=== PATIENT | female | born 1965 | race Caucasian/White ===

== ENCOUNTER → 2019-08-14 | Outpatient (CLI) | payer MEDICARE, SELFPAY ==
[2019-08-14 09:32] VITALS: BMI 16.1
--- NOTE | 2019-08-14 09:49 | RAD_ITS ---
HISTORY:PPainRAD-EXT/JT PPainRAD-EXT/JT COMPARISON: None FINDINGS: # of images incl. paperwork: 3 XR Fingers Min 2 Views: Left BONE AND JOINTS: No acute fracture or subluxation. SOFT TISSUES: Unremarkable. No radiopaque foreign body. RAD/Finger(s) Min 2 Views IMPRESSION: No acute pathology If symptoms persist repeat study in 7-10 days or sooner if clinically indicated at 1931 Reported and signed by: Chelsy Rodney DO Electronically Signed: Chelsy Rodney DO at 19:30 EDT Tel , Service support ,
== END | disposition home or self-care (01) ==
LOC: HPRAD 09:49
PROVIDERS: Family Provider Preventive Medicine Occupational Medicine; PCP Preventive Medicine Occupational Medicine; Referring Provider Physician Assistant; Visit Provider Physician Assistant
DX: M79.645 Pain in left finger(s) (principal); S06.5X9D Traumatic subdural hemorrhage with loss of consciousness of unspecified duration, subsequent encounter; R26.81 Unsteadiness on feet
CPT/HCPCS: 73140; 97530; 97760

== ENCOUNTER → 2019-08-15 | Outpatient (CLI) | payer MEDICARE, SELFPAY ==
[2019-08-14 09:32] VITALS: BMI 16.1
--- NOTE | 2019-08-15 15:31 | CT_ITS ---
STUDY: CT BRAIN WITHOUT CONTRAST REASON FOR EXAM: Female, 54 years old. Follow-up RADIATION DOSAGE (If Supplied By Facility): DLP = ( 812.98 ) mGycm TECHNIQUE: Transaxial CT imaging of the brain was performed without administration of intravenous contrast material. Individualized dose optimization techniques were used for this CT. COMPARISON: CT head November 15, 2010 FINDINGS: Right frontal and left occipital encephalomalacia is present. There is no acute bleed or infarct. There are chronic ischemic and atrophic changes. The ventricles are normal in configuration. There is no hydrocephalus. The visualized paranasal sinuses are clear. The mastoid air cells are well aerated. There is no skull fracture. CT/Brain/Head without Contrast IMPRESSION: Right frontal and left occipital encephalomalacia. Chronic ischemic and atrophic changes. No evidence of acute intracranial pathology. Electronically Signed: Gregg Kimbrough, at 16:21 EDT Tel , Service support ,
== END | disposition home or self-care (01) ==
LOC: CT 15:26
PROVIDERS: Family Provider Preventive Medicine Occupational Medicine; PCP Preventive Medicine Occupational Medicine
DX: I62.9 Nontraumatic intracranial hemorrhage, unspecified (principal)
CPT/HCPCS: 70450

== ENCOUNTER 2019-10-27 13:00 | Outpatient (RCR) | payer MEDICARE, SELFPAY ==
--- NOTE | 2019-08-11 15:44 | HP.PTEVAL_ITS ---
Patient's Visit Information JAMEL PARKS is a 54 year old F referred to Physical Therapy by LAWANDA THOMSON with a diagnosis of Subdermal Hematoma. Date of Evaluation: 08/11/19 Physical Therapist: Winter Millard DPT - Visit Plan Frequency: 2x /Week Duration: 4 Weeks Plan: Focus on general functional LE/core s/s, balance training, gait training, and improving posture. - Subjective Findings: Pt. referred to therapy (OT/PT) for dx of TIA, and left thumb dislocation. RONALD: Fell off horse 1 week & days ago. Taken & treated to [facility] 07/29/19, but was transferred to [facility] 07/30/19. Soft splint on L hand for thumb, see orthopedic surgeon . L hand dominant. Hx of CVA years ago (can't remember exact date) unsure what side affected as she was diagnosed w/ MS 1998. pt states she feels right side has always been weaker. Lives on one story home, w/ 3 steps into the house at front & garage (1 railing = garage, no railing = front of house). Daughter visits when she can to help w/ ADL's and whatever else she may need. No localized pain reported just a constant ache feeling all over (/10). Difficulty with ADL's, walking, and just moving around. Deny's N/T & disruption of sleep. Amb. w/ cane asc/desc steps, & walking outside. Does not use cane inside the house. Has two dogs at home she lets outside & feeds. 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 Has not worked since. Reported driving ehre today w/ no issues. PMH/Meds: Headaches (deny's dizziness, hx of falls). No other singificant concerns. See chart. Leisure activities: horse back riding - Objective Posture: RS, FH - could not correct (muscle gaurding/weak core). Soft splint on L hand. HR/TR: WFL. SLS: Unable to perform (did weight shift B). 30 Sec STS: 10x w/ no UE. Gait: w/out cane. Antlagic, decreased fernando, increase stance time, weight shift to L, slight B toe-out, freq. episodes of LOB w/ mod. sway, self correct. Stairs: Asc/desc. slight B toe-out, use of 1 HR, reciprocal pattern, decreased fernando. ROM: C/S: 25% diminshed in all planes d/t muscle guarding. UE WFL w/ pain. LE WFL. Strength: UE 4/5 t/o. Ankle: R 3+/5, L 4-/5 Knee: R 3+/5, L 4-/5 Hip: 3+/5 (painful). Core: fair minus. Palpation: abrasions B shins (R>L). Bandage on R. B healing appropriately. (educated on changing dressing on R gardner). Sesnation: WNL to gross B touch. Patel Balance: 35/56 (21-40 = walking with assistance). More difficulty w/ dynamic balance activities. - Goals Goal 1:: Pt. will be I w/ HEP & progression Goal Time Frame: 4-6 Weeks Goal 2:: Pt. will demo B LE strength 4+/5 Goal Time Frame: 4-6 Weeks Goal 3:: Pt. will amb >300 ft. w/ normalized gait pattern. Goal 4:: Pt. will demo improve Patel Balance score to 41/56 Goal Time Frame: 4-6 Weeks Goal 5:: Pt. will asc/dsc stairs w/ reciprocal pattern & no UE support. Goal Time Frame: 4-6 Weeks Goal 6:: Pt. will able to maintian proper posture t/o tx session to demo increased core s/s Goal Time Frame: 4-6 Weeks - Rehabilitation Potential Physical Therapy Diagnosis: Presents w/ hypomobility, B LE weakness, impaired blalance, poor posture d/t core weakness, antlagic gait, and difficulty asc/desc stairs which leads to impaired eprformance of ADL's. Rehabilitation Potential: Good - Anticipated Interventions Patient/Client Instruction: Educate patient on: Condition For the Purpose of:: To decrease pain Therapeutic Exercise to Include: Strength training, Endurance training, Balance training, Body mechanics, Postural training, Flexibilty training, Gait and locomotor training, Dynamic Lumbar Stabilization For the Purpose of:: To improve muscle performance and motor function Cryotherapy (ice pack, ice massage): Yes Thermo therapy (hot pack): Yes Thank you for the opportunity to evaluate your patient. For Medicare and Medicare HMO plans, please review the plan of care and approve it. It will need to be FAXED BACK to us at [phone] for Medicare purposes. For Medicare only, by signing this I certify the plan of care. Please let me know if there are questions or concerns regarding this plan of care. Physician Signature: Date:
--- NOTE | 2019-08-13 08:51 | HP.OTEVAL ---
Patient's Visit Information JAMEL PARKS is a 54 year old F, referred to Occupational Therapy by LAWANDA THOMSON, with a diagnosis of left thumb dislocation/ subdural hematoma. Date of Evaluation: 08/11/19 Occupational Therapist: Bree Costa, PETERSON/Alessio, CHT - Subjective Subjective: This 54 year old female was seen for OT eval with dx of TIA, and left thumb dislocation. pt one week and 5 days for left dislocation of thumb with soft sx cast on. left handed- pt return to ortho dr. tavarez will determin therapy services . pt left handed. pt has hx of CVA years ago is unsure what side was affected due to dx of MS in 1998. pt states right side has always been weaker. - Pain left thumb 2 Pain Intensity Range: 1, 5, 6 - ROM Shoulder: right/left WNL Elbow: right /Left WNL Forearm: right/Left WNL Wrist: left NT at this time due to soft cast on - Strength Curriculum Development Coordinator: left NT right 45# Lateral Pinch: left NT right 18# Tripod Pinch: left NT right 4# - Sensation Sensation Comments: denies - Quick DASH-Disab of Arm,Shoulder& Hand Quick DASH Score: 81.6650 - Goals Goal:: PT will demo an increase in cone chocolate dipper strength by 20# to increase independent with basic occupations of daily living to return pt to PLOF by D/C. Pt will demo an increase in lateral and tripod pinch by 2# to increase pts independent with opening baggies, containers at PLOF by D/C. Goal:: Pt will demo an increase in wrist and thumb ROM equal to unaffected wrist to return pt to PLOF with grooming, dressing and home mtg tasks by D/C. Goal:: Pt will report pain no greater than 1/10 with use of affected hand with BADLs and IADLs by d/c. Goal:: Pt will demo the ability to form a composite fist to hold and receive 10 coins without dropping coins/ and coin manipulation/money mtg. tasks and ind. With manipulating fasteners for dressing by D/C. - Rehabilitation General Assessment: Pt demo with left UE shoulder ROM/elbow is WNL. pt limited with left wrist and thumb ROM limiting her with her IND. with ADLs and IADLS. Pt would benefit from skilled OT services 1-2x week for 4 weeks to return pts ROM and strength to return pt to PLOF with ADLs and IADLS. Pt ed. on edema contorol, ROM and Ice. pt barb understanding. pt to return to ortho this week for re-check. Therapist will adj. goals as indicated by dr. Patrick day understanding and agree to POC. Rehabilitation Potential: Good - Anticipated Interventions Anticipated Interventions: A/AAROM/PROM, Strengthening, Triggerpoint Release, Modalities, Orthoses, Joint Protection/Energy Conservation, Home Program - Visit Plan Frequency: 1-2x /Week Duration: 6 Weeks TEXT: Thank you for the opportunity to evaluate your patient. For Medicare and Medicare HMO plans, please review the plan of care and approve it. It will need to be FAXED BACK to us at [phone] for Medicare purposes. Please let me know if there are questions or concerns regarding this plan of care. Physician Signature: Date:
[2019-08-14 09:32] VITALS: BMI 16.1
--- NOTE | 2019-09-11 14:33 | HP.PTREVAL_ITS ---
LAWANDA THOMSON, It has been my pleasure to treat JAMEL PARKS over the last 8 visits for Subdermal Hematoma. Please see the progress note below for an update on the physical therapy plan of care! Subjective: Pt. reports therapy has been going well, can tell it's helping. Does not amb. w/ cane except at HP. Belives she could use some more stren gthening. Objective/Function: Posture: RS, FH - could not correct. Less guarding present t/o UT/trunk. L Spica Splint. HR/TR: WFL. SLS: R -unable to perform, can weight shift, but when lifting leg off vitaliy cannot maintain balance. L - 2 seconds before LOB right by PT contact assist. 30 Sec STS: 12 x w/ no UE. Gait: w/out cane. Antlagic, decreased fernando, increase stance time on L foot, weight shift to L, slight B toe-out, freq. decreased sway compared to inital eval. While amb. to stairs tripped over feet, but was righted by PT contact guard before falling. With cane - antalgic, decreased fernando, increase stance time on L, weight shift to L. Lacks TKE & R knee excessive valgus t/o all gait patterns. Stairs: Asc/desc. slight B toe-out, use of 1 HR, reciprocal pattern, decreased fernando, excessive valgus at R knee. ROM: C/S: WFL UE WFL w/ pain. LE WFL. Strength: UE 4/5 t/o. Ankle: R 4-/5, L 5/5 Knee: R 4-/5, L 4-/5 Hip: 3+/5 (painful). Core: fair minus. Palpation: All wounds are healing appropriately, no signs of infection. Sesnation: WNL to gross B touch. Patel Balance: 40/56 (21-40 = walking with assistance). More difficulty w/ dynamic balance a ctivities, and narrow KAREN activities. [ End ] Plan Plan: Cont. to Focus on functional LE/core s/s, balance training, gait training. 09/11/19 Next visit educate and instruct pt. on correct weight machines for LE strengthening. Goals Goal 1:: Pt. will be I w/ HEP & progression Goal Time Frame: 4-6 Weeks Goal Progress: Progressing Goal 2:: Pt. will demo B LE strength 4+/5 Goal Time Frame: 4-6 Weeks Goal Progress: Progressing Goal 3:: Pt. will amb >300 ft. w/ normalized gait pattern. Goal Progress: Progressing Goal 4:: Pt. will demo improve Patel Balance score to 41/56 Goal Time Frame: 4-6 Weeks Goal Progress: Progressing Goal 5:: Pt. will asc/dsc stairs w/ reciprocal pattern & no UE support. Goal Time Frame: 4-6 Weeks Goal Progress: Progressing Goal 6:: Pt. will able to maintian proper posture t/o tx session to demo increased core s/s Goal Time Frame: 4-6 Weeks Goal Progress: Progressing Anticipated Interventions Patient/Client Instruction: Educate patient on: Condition For the Purpose of:: To decrease pain Therapeutic Exercise to Include: Strength training, Endurance training, Balance training, Body mechanics, Postural training, Flexibilty training, Gait and locomotor training, Dynamic Lumbar Stabilization For the Purpose of:: To improve muscle performance and motor function Cryotherapy (ice pack, ice massage): Yes Thermo therapy (hot pack): Yes Please do not hesitate to contact me at [phone] by phone or if you have questions or concerns regarding this new plan of care! Sincerely, Winter Millard DPT
--- NOTE | 2019-10-27 13:54 | HP.PTDCSUM ---
HP - PT D/C Summary It has been my pleasure to treat JAMEL PARKS under orders from LAWANDA THOMSON, for the diagnosis of Subdermal Hematoma for a total of 17 visit(s). Discharge Date: Please see the following information for a summary of their discharge status. - Subjective Subjective: Is only using her cane when she comes in here. She uses a cart in the stores. She has not had any falls. She is back to riding horses. Patient feels that she is almost 100% back to her normal prior to her falls. No changes in sleep pattern or pain. Feels that she can continue her exercises at home without issues. Does have a membership through [employer]. - Pain Mid Back Pain Intensity (Out of 10): 0 - Overall Improvement % Improvement: 90 - Objective Objective/Function: Posture: good throughout session in hard back chair HR/TR: WFL. SLS: Right: 3 seconds Left: 5 seconds Gait: w/out cane. Antlagic, decreased fernando, increase stance time on L foot, weight shift to L, slight B toe-out, freq. decreased sway. With cane - antalgic, decreased fernando, increase stance time on L, weight shift to L. Lacks TKE & R knee excessive valgus t/o all gait patterns poor heel.toe pattern. Stairs: Asc/desc. slight B toe-out, use of 1 HR, reciprocal pattern ROM: WFL Strength: UE 4/5 t/o. Ankle: R 4/5, L 5/5 Knee: R 4/5, L 4/5 Hip: 4-/5. Core: fair minus. - Goals Goal 1:: Pt. will be I w/ HEP & progression Goal Progress: Progressing Goal 2:: Pt. will demo B LE strength 4+/5 Goal Progress: Progressing Goal 3:: Pt. will amb >300 ft. w/ normalized gait pattern. Goal Progress: Progressing Goal 4:: Pt. will demo improve Patel Balance score to 41/56 Goal Progress: Progressing Goal 5:: Pt. will asc/dsc stairs w/ reciprocal pattern & no UE support. Goal Progress: Progressing Goal 6:: Pt. will able to maintian proper posture t/o tx session to demo increased core s/s Goal Progress: Progressing - Plan Plan: Discharge to I HEP through [facility] - D/C Information If there are questions or concerns regarding this patient's physical therapy, please feel free to call me at [phone]. Thank you for the referral of this patient. Sincerely, BRUCE HoskinsT
== END 2019-10-27 19:00 | disposition home or self-care (01) ==
LOC: PT 13:00
PROVIDERS: Family Provider Preventive Medicine Occupational Medicine; PCP Preventive Medicine Occupational Medicine
DX: S06.5X9D Traumatic subdural hemorrhage with loss of consciousness of unspecified duration, subsequent encounter (principal); R26.81 Unsteadiness on feet
CPT/HCPCS: 97110; 97162; 97164; 97166; 97530; 97760

== ENCOUNTER → 2020-09-24 14:00 | Outpatient (CLI) | payer MEDICARE, SELFPAY ==
[2019-08-14 09:32] VITALS: BMI 16.1
--- NOTE | 2020-09-24 13:53 | EKG12_ITS ---
Test Reason : PREOP Blood Pressure : / mmHG Vent. Rate : 058 BPM Atrial Rate : 058 BPM P-R Int : 120 ms QRS Dur : 080 ms QT Int : 410 ms P-R-T Axes : 075 079 048 degrees QTc Int : 402 ms Sinus bradycardia Confirmed by ELVA DODSON, REY ([id number]), society editor LATANYA HASKINS ([id number]) on 09/29/2020 10:52:35 AM Referred By: Jaden Huang Confirmed By:REY STEVENSON MD
== END ==
PROVIDERS: PCP Preventive Medicine Occupational Medicine; Referring Provider Urology; Visit Provider Urology
DX: Z01.812 Encounter for preprocedural laboratory examination (principal); Z11.59 Encounter for screening for other viral diseases
CPT/HCPCS: 87635; 93005; C9803; U0003

== ENCOUNTER 2020-10-01 14:29 | Day surgery (SDC) | payer MEDICARE, SELFPAY ==
[2019-08-14 09:32] VITALS: BMI 16.1
[2020-09-29 11:56] LABS: Hematocrit 38.5 % (37-47); Hemoglobin 12.6 g/dL (12.0-15.0); Mean Corp Hgb Conc 32.7 g/dL (32-36); Mean Corpuscular Volume 97.7 fL (81-99); Platelet Count 178 K/mm3 (150-450); RBC Distribution Width CV 11.7 % (11.6-14.6); RBC Distribution Width SD 42.7 fl (35.1-43.9); Red Blood Count 3.94 M/mm3 (4.2-5.4); White Blood Count 3.7 K/mm3 (4.4-11.0)
[2020-09-29 12:45] LABS: Anion Gap 5 (5-15); BUN 16 mg/dL (7-18); BUN/Creat Ratio 17.5 RATIO (10-20); Calcium,Total 8.8 mg/dL (8.5-10.1); Chloride 108 mmol/L (98-107); Creatinine, Serum 0.91 mg/dL (0.55-1.02); EST Glomerular Filtration Rate 68 mL/min (>60); Est Glom Filt Rate - Afr Amer 83 mL/min (>60); Glucose 97 mg/dL (74-106); Potassium 3.8 mmol/L (3.5-5.1); Sodium Level 143 mmol/L (136-145)
[2020-10-01] VITALS (7 sets, daily range): BP systolic 96–116; BP diastolic 30–77; PULSE 51–82; RESP 16; TEMP 36.3–36.8; O2SAT 100; BMI 15.3
--- NOTE | 2020-10-01 13:10 | HP.PCM_ITS ---
Problem List (1) Urge incontinence Status: Acute History of Present Illness Date of Admission: 10/01/20 Chief Complaint: Urge incontinence The patient is a 55 year old female with a history of incontinence of urine and urgency she underwent urodynamic studies to demonstrate severe urge incontinence with inability to hold the urine she is failed medical therapy. Voiding diary documents frequency urgency. We talked about options of management we are i nterested in seeing if InterStim therapy would be an option for her so she has been to proceed today with placement of a peripheral nerve clinical quality assurance associate to evaluate for InterStim therapy. Past Medical History Medical History: Medical History (Last Updated 08/14/19 @ 09:36 by Fely Hamilton) Multiple sclerosis G35 Stroke I63.9 Allergies latex Allergy (Verified 09/24/20 14:56) Rash Penicillins Allergy (Verified 09/24/20 14:53) difficulty breathing Home Medications: Ambulatory Orders Medication Instructions Recorded cholecalciferol (vitamin D3) 25 1,000 unit PO DAILY 08/14/19 mcg (1,000 unit) capsule Cyanocobalamin (Vitamin B-12) 1,000 mcg PO DAILY 09/24/20 [Vitamin B-12] Oxybutynin [Ditropan] 5 mg PO TID PRN PRN 09/24/20 Surgical History: Surgical History (Last Updated 08/14/19 @ 09:36 by Fely Hamilton) tubal ligation Surgical History: no surgical history Smoking Status: Never smoker Review of Systems Constitutional: Denies: Chills, Fever, Weight Change HEENT: Denies: Head Aches, Sinus Congestion, Sinus Drainage Cardiovascular: Denies: Chest Pain, Palpitations Respiratory: Denies: Cough, Shortness of breath at rest, Sputum production Gastrointestinal: Denies: Abdominal Pain, Nausea, Vomiting Genitourinary: Denies: Dysuria Musculoskeletal: Denies: Joint Pain, Joint Tenderness Skin: Denies: Rash, Wounds Neurological: Denies: Numbness, Tingling, Focal weakness Psychiatric: Denies: Anxiety, Depression, Homicidal Ideations, Suicidal Ideations Hematologic/ Lymphatic: Denies: Easy Bruising, Easy Bleeding VTE Information - Inpt Only VTE Present on Admission: No - Physical Exam Vitals/I&O's: Body Mass Index (BMI) 16.1 General: Alert, Oriented x3, Cooperative HEENT: Atraumatic, PERRLA, EOMI, Normocephalic Neck: Supple, No JVD, Negative Carotid Bruits Lungs: Clear to auscultation, Normal air movement Cardiovascular: Regular rate, No murmurs Abdomen: Bowel Sounds Present, Soft, Non Tender Extremities: No edema, Capillary Refill Less than 3 Seconds Skin: No rashes, No breakdown Musculoskeletal: No Tenderness to Palpation of Joints or Extremities Neurological: Cranial nerves II-XII grossly intact Psych/Mental Status: Normal Affect, Appropriate Current Medications Cefazolin Sodium 2 gm/ Sodium (Chloride) 110 mls @ 150 mls/hr IV PREOP ONE Stop: 10/01/20 16:48 Assessment/Plan All Active Problems (Last Updated 08/14/19 @ 09:36 by Fely Hamilton) Urge incontinence (Acute) Plan for placement of PNE clinical quality assurance associate to see if InterStim therapy would be a viable option to help her bladder control she understands that the lead today will be placed is only temporary and to be understands that this will hopefully demonstrate whether InterStim therapy would be a viable option for her bladder control she will see me in the office next week to review the temporary stimulation to see if we can greater than 50% improvement she has failed to medical therapies drugs with no improvement and also she is documented to have severe urge incontinence with urodynamics that is failed conservative measures.
--- NOTE | 2020-10-01 13:14 | PCM.DC.URO ---
Discharge Diet: Light diet - advance as tolerated Discharge Activity: May not drive while taking narcotic pain medications. Allergies/Adverse Reactions: Allergies latex Allergy (Verified 09/24/20 14:56) Rash Penicillins Allergy (Verified 09/24/20 14:53) difficulty breathing Medications to take at Discharge cholecalciferol (vitamin D3) 25 mcg (1,000 unit) capsule 1,000 unit PO DAILY 08/14/19 Cyanocobalamin (Vitamin B-12) [Vitamin B-12] 1,000 mcg PO DAILY 09/24/20 Oxybutynin [Ditropan] 5 mg PO TID PRN PRN 09/24/20 Cephalexin [Keflex] 500 mg PO Q8H #9 cap 10/01/20 Hydrocodone/Acetaminophen [[place] 5-325 Tablet] 1 each PO Q4H PRN PRN 7 Days #10 tablet 10/01/20 The following prescriptions were given: Cephalexin [Keflex] 500 mg PO Q8H #9 cap Transmission Status: Pending to [id number] Hydrocodone/Acetaminophen [[place] 5-325 Tablet] 1 each PO Q4H PRN PRN 7 Days #10 tablet PRN Reason: Pain Score 1-10 Transmission Status: Sent to [id number] Primary Care Physician: Brandon Cervantes DO [Primary Care Provider] - Test Results: Test results from this visit will be discussed in further detail at your follow-up appointment, if applicable. Please Follow Up With: Jaden Huang MD When: please call to make an appointment.
[2020-10-01] MEDS: Lactated Ringers 1,000 ML 100 ML IV (15:06)
[2020-10-01] MEDS: Cefazolin 2 GM in 0.9% Normal Saline 100 ML IV (15:38)
--- NOTE | 2020-10-01 16:09 | PCM.OPRPT ---
Problem List (1) Urge incontinence Status: Acute Report of Operation Date of Procedure: 10/01/20 Pre-Operative Diagnosis: Urgency and frequency, overactive bladder Post-Operative Diagnosis: The same Surgery/Procedure Performed:: Peripheral nerve freelance web designer placement of a peripheral nerve freelance web designer on the left and right side of S3 foramen Description of Surgical Findings:: 55-year-old female with history of severe overactive bladder is refractory to medical therapy she comes in today for a PNE, peripheral nerve evaluation trial for InterStim therapy. She was taken back to the operating room laid flat on the table. The lower tailbone area and sacrum was prepped and draped in usual sterile fashion then using fluoroscopy we used the needle to advance through the skin into the S3 foramen on the patient's left side this was confirmed both by AP and lateral views of the sacrum. We then stimulated the needle and we got good amelia response but no toe response. We left that wire in place and then we went to the other side and used a needle to find what appeared to be the S3 foramen but it also possible it was the S4 foramen we went up higher and stimulated but we did not get a amelia response or toe response so we went back down one more level into what without should be S3 and we did get a amelia response with no toe response a possible that the higher level was asked to. Once we got both leads in place we advanced the temporary leads to the needles left and temporary leads in place pulled the needles back and then we removed the inner stylette and then we placed dressings on the temporary leads and these were secured to the patient's back and then she will undergo nerve stimulation for about a week for trial to see if InterStim therapy would be effective in helping her bladder control. Type of Anesthesia:: Local MAC Drains: none - Admit VTE Documentation VTE Present on Admission: No VTE Mechan Device Prophylaxis: SCD's
== END 2020-10-01 17:31 | disposition home or self-care (01) ==
LOC: SDC 14:30 → AC 14:31
PROVIDERS: PCP Preventive Medicine Occupational Medicine; Referring Provider Urology; Visit Provider Urology
PROC: (CPT 64561; principal; 2020-10-01 16:05)
DX: N39.41 Urge incontinence (principal); G35 Multiple sclerosis; Z86.73 Personal history of transient ischemic attack (TIA), and cerebral infarction without residual deficits; Z79.899 Other long term (current) drug therapy; N32.81 Overactive bladder
CPT/HCPCS: 00300; 64561; 64590; 36415; 76000; 80048; 85027; J7120

== ENCOUNTER 2020-10-27 10:24 | Day surgery (SDC) | payer MEDICARE, SELFPAY ==
[2020-10-01 14:51] VITALS: BMI 15.3
[2020-10-27] VITALS (9 sets, daily range): BP systolic 86–105; BP diastolic 47–64; PULSE 59–84; RESP 16–18; TEMP 36.6–36.9; O2SAT 99–100; BMI 15.7
[2020-10-27] MEDS: Lactated Ringers 1,000 ML 100 ML IV (11:12)
--- NOTE | 2020-10-27 11:34 | HP.PCM_ITS ---
History of Present Illness Date of Admission: 10/27/20 Chief Complaint: Overactive bladder and urge incontinence The patient is a 55 year old female with a history of refractory overactive bladder and urge incontinence she is tried medical therapy with no improvement, behavioral therapy with no improvement. We did a PNE trial and had a successful trial with significant improvement greater than 50% in the number of voids. She still has some urgency but was satisfied with the response of her to go for a st age I and stage II InterStim implant. Past Medical History Medical History: Medical History (Last Updated 08/14/19 @ 09:36 by Fely Hamilton) Multiple sclerosis G35 Stroke I63.9 Allergies latex Allergy (Verified 10/19/20 16:05) Rash Penicillins Allergy (Verified 10/19/20 16:05) difficulty breathing AMPRYA Allergy (Uncoded 10/01/20 14:54) STROKE Home Medications: Ambulatory Orders Medication Instructions Recorded cholecalciferol (vitamin D3) 25 1,000 unit PO DAILY 08/14/19 mcg (1,000 unit) capsule Cyanocobalamin (Vitamin B-12) 1,000 mcg PO DAILY 09/24/20 [Vitamin B-12] Surgical History: Surgical History (Last Updated 08/14/19 @ 09:36 by Fely Hamilton) tubal ligation Surgical History: no surgical history Smoking Status: Former smoker Tobacco Use: Non-smoker Review of Systems Constitutional: Denies: Chills, Fever, Weight Change HEENT: Denies: Head Aches, Sinus Congestion, Sinus Drainage Cardiovascular: Denies: Chest Pain, Palpitations Respiratory: Denies: Cough, Shortness of breath at rest, Sputum production Gastrointestinal: Denies: Abdominal Pain, Nausea, Vomiting Genitourinary: Denies: Dysuria Musculoskeletal: Denies: Joint Pain, Joint Tenderness Skin: Denies: Rash, Wounds Neurological: Denies: Numbness, Tingling, Focal weakness Psychiatric: Denies: Anxiety, Depression, Homicidal Ideations, Suicidal Ideations Hematologic/ Lymphatic: Denies: Easy Bruising, Easy Bleeding VTE Information - Inpt Only VTE Present on Admission: No - Physical Exam Vitals/I&O's: Vital Signs Temp Pulse Resp BP Pulse Ox 98.5 F 84 18 105/55 L 100 10/27/20 11:10/27/20 11:10/27/20 11:06 10/27/20 11:06 10/27/20 11:06 Oxygen Delivery Method Room Air Weight: 44.3 kg Body Mass Index (BMI) 15.7 General: Alert, Oriented x3, Cooperative HEENT: Atraumatic, PERRLA, EOMI, Normocephalic Neck: Supple, No JVD, Negative Carotid Bruits Lungs: Clear to auscultation, Normal air movement Cardiovascular: Regular rate, No murmurs Abdomen: Bowel Sounds Present, Soft, Non Tender Extremities: No edema, Capillary Refill Less than 3 Seconds Skin: No rashes, No breakdown Musculoskeletal: No Tenderness to Palpation of Joints or Extremities Neurological: Cranial nerves II-XII grossly intact Psych/Mental Status: Normal Affect, Appropriate Microbiology Past 72 Hours 10/25/20 15:15 Interface Orders SARS-CoV-2 Antigen (Rapid) - Final Current Medications Lactated Ringer's () 1,000 mls @ 100 mls/hr IV .Q10H SIMÓN Last Admin: 10/27/20 11:12 Dose: 100 mls/hr Documented by: Assessment/Plan All Active Problems (Last Updated 08/14/19 @ 09:36 by Fely Hamilton) Urge incontinence (Acute) Plan to proceed with stage I and stage II InterStim implant.
--- NOTE | 2020-10-27 11:36 | DCINST_ITS ---
Discharge Diet: Light diet - advance as tolerated Discharge Activity: Return to Normal Activity Call your doctor if your incision/area has: Sudden Increased Bleeding Suture Line Care: Avoid Pulling/Pushing, Avoid Pinching/Bending Allergies/Adverse Reactions: Allergies latex Allergy (Verified 10/19/20 16:05) Rash Penicillins Allergy (Verified 10/19/20 16:05) difficulty breathing AMPRYA Allergy (Uncoded 10/01/20 14:54) STROKE Medications to take at Discharge cholecalciferol (vitamin D3) 25 mcg (1,000 unit) capsule 1,000 unit PO DAILY 08/14/19 Cyanocobalamin (Vitamin B-12) [Vitamin B-12] 1,000 mcg PO DAILY 09/24/20 Primary Care Physician: Brandon Cervantes DO [Primary Care Provider] - Test Results: Test results from this visit will be discussed in further detail at your follow- up appointment, if applicable. Please Follow Up With: Jaden Huang MD When: in 2 weeks, please call to make an appointment.
[2020-10-27] MEDS: Cefazolin 2 GM in 0.9% Normal Saline 100 ML IV (11:44)
--- NOTE | 2020-10-27 11:50 | RAD_ITS ---
STUDY: X-RAY - PELVIS REASON FOR EXAM: Female, 55 years old. inter stim therapy TECHNIQUE: One view of the pelvis was obtained. COMPARISON: None. FINDINGS: 2 coned down intraoperative views were obtained for InterStim placement. The tip of the electrode is seen along the right superior posterior aspect of the pelvis. RAD/Pelvis 1 or 2 Views IMPRESSION: The electrode for the interstitium therapy is seen in the right superior posterior aspect of the pelvis. Electronically Signed: Ridge Lorenzo, at 15:23 EST , Service support ,
[2020-10-27] MEDS: Lidocaine 1% (20 ml mdv) 20 ML Vial (11:55)
--- NOTE | 2020-10-27 12:55 | OP.PCM_ITS ---
Report of Operation Date of Procedure: 10/27/20 Pre-Operative Diagnosis: Urge incontinence Post-Operative Diagnosis: Same Surgery/Procedure Performed:: Stage I and stage II InterStim implant Description of Surgical Findings:: 55-year-old female with history of severe urge incontinence of the bladder, she underwent a PNE trial peripheral nerve evaluation trial that was successful and she has agreed to proceed with InterStim therapy. She understands that the implant will hopefully help with her bladder control but is always possible may need adjusted and may need root reprogramming there is a small risk of injury to nerves bleeding infection and the possibility it fails stops working or its not as effective as initially and put in. After discussing this with the patient she wants to proceed with implant of the InterStim therapy to help with her bladder control is that she has severe overactive bladder and urge incontinence. 55-year-old female taken back to the operating room after smooth induction of a MAC local she was placed facedown on the table made sure she was comfortable. The sacrum buttocks and lower back was prepped and draped in usual sterile fashion. We then draped the C arm she did have a very unusual tailbone coccyx anatomy with a very steep coccyx which made this very difficult implant compared to normal situation because of this detoxes also the patient is severely thin with a BMI of 15 which also created its own challenge. At first we used the C arm to identify the coccyx again the coccyx causing an unusual angle she had a very curvy small coccyx unusual the way the tailbone was shaped. I then used a lateral view on the C arm and we first used the first needle to try identify the S3 and S4 foramen we dropped in the first drop in the first 1 on the right appear to be S4 we did get good amelia but no toe. We then dropped in on the left at S4 but we really could not get any amelia or no toe. Then after multiple attempts was able to drop in on the left side and S3. At that point the patient's anesthetic was lightened up and the patient was question as the sensation and she reports his sensation in the perineum buttocks area with the stimulation S3 in the left side she had a good amelia response and also had a toe response as well. So eventually found the best response we could add a 3 needles. The stylette from the needle was removed we advanced the guide through the needle through the S3 pulled out the needle made incision in the skin infiltrated the skin with lidocaine then used the stylette over the guidance advanced to the coccyx on the lateral view made sure that the guide stylette was custodial between the anterior and posterior plate of the coccyx. We then pulled out the needle and the stylette and then advanced the stage I InterStim needle through the stylette and then we advanced it until we had to stimulation points below the posterior plate into above the posterior plate we then checked and we had good stimulation on 012 but no stimulation on 3. We tried manipulating the wire we could get a better stimulation so we kept trying and then eventually we settled with 3 out of 4 stimulations on 01 and 2. At this point the stylet was read pulled back to deploy the tines and then we tunneled the wire to the pocket on the patient's left side small pocket was created. And then we put the wire to the stage II generator and implanted the generator into the pocket. We then checked impedance of the generator and there was good communication and no high impedance. After passing the test then we closed the pocket in 2 layers with 3- 0 Vicryl and 4-0 Monocryl and then we closed the insertion site with 4-0 Monocryl. At this point Steri-Strips and dressings were placed on the pocket and the insertion site patient acetic was reversed. We did save the images on C arm the lateral view in the AP view of the implant appear to be in good position. She is very thin so should be given instructions not to do any heavy lifting or bending for at least 2 weeks to make sure the InterStim does not move. And she will undergo programming in the postoperative setting by the InterStim rep. I will see her in 2 weeks for checkup. Type of Anesthesia:: General - Admit VTE Documentation VTE Present on Admission: No VTE Mechan Device Prophylaxis: SCD's
== END 2020-10-27 17:09 | disposition home or self-care (01) ==
LOC: SDC 10:38 → AC 10:38
PROVIDERS: PCP Preventive Medicine Occupational Medicine; Referring Provider Urology; Visit Provider Urology
PROC: (CPT 64561; principal; 2020-10-27 12:10)
PROC: (CPT 64561; 2020-10-27 12:10)
DX: N39.41 Urge incontinence (principal); Z20.828 Contact with and (suspected) exposure to other viral communicable diseases; N32.81 Overactive bladder; G35 Multiple sclerosis; Z86.73 Personal history of transient ischemic attack (TIA), and cerebral infarction without residual deficits; Z87.891 Personal history of nicotine dependence
CPT/HCPCS: 00300; 64561; 64590; 72170; 76000; 87426; C9803; J7120; C1767; J2405

== ENCOUNTER → 2021-05-20 12:52 | Outpatient (CLI) | payer MEDICARE, SELFPAY ==
[2020-10-27 11:06] VITALS: BMI 15.7
--- NOTE | 2021-05-20 13:23 | CT_ITS ---
STUDY: CT BRAIN WITHOUT CONTRAST REASON FOR EXAM: Female, 56 years old. MS RADIATION DOSAGE (If Supplied By Facility): CTDIvol = ( 44.99 ) mGy, DLP = ( 812.98 ) mGycm TECHNIQUE: Transaxial CT imaging of the brain was performed without administration of intravenous contrast material. Individualized dose optimization techniques were used for this CT. COMPARISON: 08/15/2018 FINDINGS: Normal soft tissue structures. Normal calvarium. Normal size ventricles and extra-axial spaces for the patient''s age. Focal area of diminished density of the left occipital lobe is stable. There is also focal density and cortical atrophy of the right medial frontal lobe. Normal basal ganglia and thalami. Normal brainstem. Normal cerebellum. There is no intracranial hemorrhage. There are no findings of an acute ischemic infarction. Normal visualized paranasal sinuses. CT/Brain/Head without Contrast IMPRESSION: 1. No acute intracranial hemorrhage or mass effect. 2. 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 Electronically Signed: Roger Tong MD ([place]) at 15:48 EDT , Service support ,
[2021-05-20 14:16] LABS: Absolute Lymphocyte Count 1.21 X10^3/uL (0.83-4.51); Absolute Neutrophil Count 3.5 X10^3/uL (2.0-7.7); Basophil# 0.03 X10^3/uL; Basophil% 0.6 % (0-1); Eosinophil# 0.02 X10^3/uL; Eosinophils% 0.4 % (0-5); Hematocrit 43.2 % (37-47); Hemoglobin 14.1 g/dL (12.0-15.0); Lymphocyte # 1.21 X10^3/ul (0.83-4.51); Lymphocyte % 24.2 % (19-41); Mean Corp Hgb Conc 32.6 g/dL (32-36); Mean Corpuscular Hgb 32.1 pg (27.0-32.0); Mean Corpuscular Volume 98.4 fL (81-99); Mean Platelet Vol. 11.1 fl (6.2-12.0); Monocyte# 0.28 X10^3/uL; Monocyte% 5.6 % (0-10); NRBC Flagged by Analyzer 0 % (0-5); Neutrophil # 3.45 X10^3/uL (2.7-7.7); Platelet Count 191 K/mm3 (150-450); RBC Distribution Width CV 12.8 % (11.6-14.6); RBC Distribution Width SD 46.5 fl (35.1-43.9); Red Blood Count 4.39 M/mm3 (4.2-5.4)
[2021-05-20 14:44] LABS: ALB/GLOB Ratio 1.1 RATIO (0.9-2.4); AST(SGOT) 20 U/L (15-37); Alanine Aminotransfer ALT/SGPT 15 U/L (13-56); Albumin, Serum 3.8 g/dL (3.2-5.0); Alkaline Phosphatase 49 U/L (45-117); Anion Gap 4 (5-15); BUN 22 mg/dL (7-18); BUN/Creat Ratio 23.8 RATIO (10-20); Calcium,Total 8.8 mg/dL (8.5-10.1); Chloride 108 mmol/L (98-107); Creatinine, Serum 0.92 mg/dL (0.55-1.02); EST Glomerular Filtration Rate 67 mL/min (>60); Est Glom Filt Rate - Afr Amer 82 mL/min (>60); Globulin 3.4 g/dL (2.2-4.2); Glucose 45 mg/dL (74-106); Potassium 3.7 mmol/L (3.5-5.1); Protein, Total 7.2 g/dL (6.4-8.2); Sodium Level 143 mmol/L (136-145)
== END ==
PROVIDERS: PCP Preventive Medicine Occupational Medicine; Referring Provider Psychiatry & Neurology Neurology; Visit Provider Psychiatry & Neurology Neurology
DX: G35 Multiple sclerosis (principal)
CPT/HCPCS: 36415; 70450; 80053; 82784; 82785; 85025; 86480; 86704; 86705; 86706; 86708; 86709; 86803; 87340

== ENCOUNTER → 2021-07-21 17:14 | Outpatient (CLI) | payer MEDICARE, SELFPAY | PROVIDERS: PCP Preventive Medicine Occupational Medicine; Visit Provider Nurse Practitioner Adult Health | DX: R35.0 Frequency of micturition (principal) | CPT/HCPCS: 87086 ==

== ENCOUNTER 2022-01-20 10:08 | Day surgery (SDC) | payer MEDICARE, SELFPAY ==
[2022-01-20] VITALS (7 sets, daily range): BP systolic 85–125; BP diastolic 58–83; PULSE 65–70; RESP 16–18; TEMP 36.4–37.6; O2SAT 98–100; BMI 15.6
[2022-01-20] MEDS: Lactated Ringers 1,000 ML 15 ML IV (10:46)
--- NOTE | 2022-01-20 12:20 | RAD_ITS ---
STUDY: X-RAY - PELVIS REASON FOR EXAM: Female, 56 years old. INTERSTIM 1 TECHNIQUE: 2 limited intraoperative study COMPARISON: None. FINDINGS: 2 limited intraoperative studies were performed of the pelvis as the patient has undergone neurostimulator placement. No intraoperative complications RAD/Pelvis 1 or 2 Views IMPRESSION: No intraoperative complications during neurostimulator placement Electronically Signed: Americo Villanueva MD at 15:20 EST ,
[2022-01-20] MEDS: Cefazolin 2 GM in 0.9% Normal Saline 100 ML IV (13:04)
[2022-01-20] MEDS: Lidocaine 1% (20 ml mdv) 20 ML Vial (13:23)
--- NOTE | 2022-01-20 14:26 | PCM.HP.STD ---
HPI - General HPI Narrative JAMEL PARKS, is a 56 F who presents For placement of an InterStim therapy she had InterStim therapy placement 2 years ago and it stopped working. [facility] Medical History (Updated 01/13/22 @ 10:26 by Anusha Montejo) Ambulates with cane Bite by animal Easy bruising Excessive bleeding Former smoker Multiple sclerosis Stroke Wears dentures Home Medications cholecalciferol (vitamin D3) 25 mcg (1,000 unit) capsule 1,000 unit PO DAILY 08/14/19 [History Last Taken Unknown] cyanocobalamin (vitamin B-12) 1,000 mcg PO DAILY 09/24/20 [History Last Taken Unknown] ascorbic acid (vitamin C) [Vitamin C] 500 mg PO DAILY 01/13/22 [History Last Taken Unknown] oxybutynin chloride 15 mg PO DAILY 01/13/22 [History Last Taken Unknown] pyridoxine (vitamin B6) [Vitamin B-6] 100 mg PO DAILY 01/13/22 [History Last Taken Unknown] ciprofloxacin HCl 500 mg PO BID #10 tab 01/20/22 [Rx Last Taken Unknown] oxycodone-acetaminophen 1 tab PO Q6H PRN 7 Days #14 tab 01/20/22 [Rx Last Taken Unknown] Allergy/AdvReac Type Severity Reaction Status Date / Time latex Allergy Rash Verified 01/20/22 10:40 Penicillins Allergy difficulty Verified 01/20/22 10:40 breathing AMPRYA Allergy STROKE Uncoded 01/20/22 10:40 Surgical History (Updated 01/13/22 @ 10:10 by Anusha Montejo) History of bladder surgery tubal ligation Social History (Updated 08/15/19 @ 16:32 by Jaoo HUYNH, PA) Smoking Status: Former smoker Vital Signs Vital Signs Vital Signs: 01/20/22 10:41 Temperature 97.6 F L Temperature Source Temporal Pulse Rate 70 Respiratory Rate 16 Respiratory Pattern Normal Blood Pressure 125/80 H Blood Pressure Mean 95 Blood Pressure Source Monitor Blood Pressure Position Semi-Fowlers Blood Pressure Location Left Arm Pulse Ox 100 Oxygen Delivery Method Room Air Weight Weight: 44 kg Body Mass Index (BMI) 15.6
--- NOTE | 2022-01-20 14:27 | OP.PCM_ITS ---
Report of Operation Date of Procedure: 01/20/22 Pre-Operative Diagnosis: Urge incontinence and frequency Post-Operative Diagnosis: Same Surgery/Procedure Performed:: Stage I and stage II InterStim therapy implant Description of Surgical Findings:: The patient presents to the operating room for placement of stage I and II therapy. In the preoperative setting she is failed medical management for the patient urge incontinence and severe frequency of urination, a voiding diary was reviewed. The patient understands these is no guarantees that in the future the InterStim therapy will keep working to the patient's satisfaction and its always possible and it may need to have a surgical revision, change in implant, possible revision or removal of implant. We also talk about the risks of pain with stimulation, bleeding and infection or any injury to nerves or bony structures and the tailbone area. After reviewing all this with the patient in the preoperative area she signed the consent form and we proceeded with stageI and II therapy implant, we plan to remove the old implant that is not working. Patient was brought back to the operating room and placed supine on the table and then transferred to facedown the table and underwent sedation with comfort hugging a pillow. Patient's lower back was prepped and draped in usual sterile fashion, I then palpated the bony landmarks identify the tailbone the sacrum and the pocket area was identified where the lead enterprise architect would be implanced and also the lead. Fluoroscopy was brought in to identify the pelvis we identify the spinous processes of the pelvic bone we used a finder needle to lay across the spinous process to the approximate the location of the S3 foramen. I then identified the lateral borders of the foramen using the other spinal needle. Under this the skin was then marked and potential entrances were by approximation and bony landmarks using fluoroscopy. I then infiltrated the skin about 2 cm up above the approximation of the S3 foramen and then used the needle within the stage I InterStim kit to go straight down to the potential S3 foramen spot marching along the sacrum until the needle electrode dropped into what appeared to be the S3 foramen. Under fluoroscopy in AP and lateral veiw I confirmed that I had the lead in the S3 foramen, I then stimulated the needle and had good amelia response and had toe flexion but no calf rotation, confirm placement of the lead in the S3 Foremen. I then placed the guide through the needle the stylette was removed and then the needle was removed over the guide an incision was made into the skin and then through the incision incision and over the guide I introduced the sheath I followed the sheath under fluoroscopy until the marker on the sheath was three fourths down from the anterior plate of the sacrum. Once this was in good position then the stylette was removed and through the sheath I then introduced the stage I InterStim stimulator lead, I then checked the lead for stimulation of amelia and toe flexion at all 4 sites 0, 1, 2, 3 and had good response with amelia and toe flexion and pleased with the placement of the lead. Under fluoroscopy I captured the placement the lead this was documented both in AP and lateral views. I then removed the stylette within the lead and then pulled back in the sheath of the deployed the tines on the lead to secure the lead and the sacrum and the S3 foramen. Another fluoroscopic check was done to make sure no movement of the lead. After this was confirmed then pocket was created in the patient's lateral side where the generator pocket would be placed after the pocket was created in the subcutaneous tissue then using the guide created in the kit the end of the lead was then transferred from the insertion site to the pocket site subcutaneously. Then the generator was opened and I made sure I cleaned the lead completely I attached the lead to the generator use the screwdriver provided in the kit to then secure the bolt secure the lead to the generator prior to doing this again checked the lead 0, 1, 2, 3 and there was still good stimulation at all sites. Then the old implant lead was removed as well as the old implant generator. I then placed the lead into the generator and the generator was put into the pocket that was created. I made sure that the generator was placed with InterStim labeling side up and was oriented appropriately. I then checked for impedance using the [employer] rep had the device checked in the impedance was normal with no abnormal impedance and all leads in all 4-lead sites were programmed and responded normally. The generator was then programmed to ensure good proper stimulation of the InterStim device this was done in the operating room, after complex programming was completed we finished with fluoroscopy I then closed the insertion site with subcuticular stitches and Steri-Strips and bandages and then closed the pocket with subcuticular stitches and Steri-Strips and bandages. The patient's anesthetic was reversed patient was taken back to the recovery room in stable condition and further training and education will be given to the patient regarding how to use the new InterStim therapy. CPT codes: 94753 -Lead placement CPT codes: 94470 - Batterry Generator placement
--- NOTE | 2022-01-20 14:27 | PCM.DC ---
Discharge Instructions Diet Discharge Diet: No restrictions Activity Discharge Activity: Return to Normal Activity and May Not Drive (while taking narcotic pain medications.) Dressing / Incision Call your doctor if you observe: Fever of 101 or Higher Follow Up Care Please Follow Up With: Jaden Huang MD When: Call [phone] for an appointment Test Results: Test results from this visit will be discussed in further detail at your follow-up appointment, if applicable. Discharge Plan Admission Primary Reason for Your Visit: interstim therapy Attending Provider: Jaden Huang Primary Care Provider: Brandon Cervantes Discharge Orders/Prescriptions Prescriptions: New ciprofloxacin HCl 500 mg tablet 500 mg PO BID Qty: 10 RF: 0 oxycodone-acetaminophen 5-325 mg tablet 1 tab PO Q6H PRN (Reason: pain) 7 Days Qty: 14 RF: 0 Continued cholecalciferol (vitamin D3) 1,000 unit capsule 1,000 unit PO DAILY RF: 0 cyanocobalamin (vitamin B-12) 1,000 MCG tablet 1,000 mcg PO DAILY RF: 0 oxybutynin chloride 15 mg Tablet Extended Release 24hr 15 mg PO DAILY RF: 0 ascorbic acid (vitamin C) [Vitamin C] 500 mg Tablet 500 mg PO DAILY RF: 0 pyridoxine (vitamin B6) [Vitamin B-6] 100 mg Tablet 100 mg PO DAILY RF: 0 Referrals / Follow Up: Jaden Huang MD [STAFF PHYSICIAN] - Brandon Cervantes DO [Primary Care Provider] - Disposition Disposition (needs filled in before D/C Order can be placed): Home, Self Care
[2022-01-20] MEDS: oxyCODONE 5 MG Tablet PO (15:09)
== END 2022-01-20 23:59 | disposition home or self-care (01) ==
LOC: SDC 10:11 → AC 10:13
PROVIDERS: PCP Preventive Medicine Occupational Medicine; Visit Provider Urology
PROC: (CPT 64590; principal; 2022-01-20 12:10)
DX: Z45.42 Encounter for adjustment and management of neurostimulator (principal); G35 Multiple sclerosis; N39.41 Urge incontinence; R35.0 Frequency of micturition; Z87.891 Personal history of nicotine dependence; Z86.73 Personal history of transient ischemic attack (TIA), and cerebral infarction without residual deficits; Z79.899 Other long term (current) drug therapy; Z86.2 Personal history of diseases of the blood and blood-forming organs and certain disorders involving the immune mechanism
CPT/HCPCS: 64590; 64581; 00400; 72170; 76000; J7120; C1767

== ENCOUNTER → 2022-04-28 | Outpatient (CLI) | payer MEDICARE, SELFPAY ==
[2022-04-28 17:16] LABS: Absolute Lymphocyte Count 1.18 X10^3/uL (0.83-4.51); Absolute Neutrophil Count 3.4 X10^3/uL (2.0-7.7); Basophil# 0.01 X10^3/uL; Basophil% 0.2 % (0-1); Eosinophil# 0.05 X10^3/uL; Hemoglobin 13.8 g/dL (12.0-15.0); Lymphocyte # 1.18 X10^3/ul (0.83-4.51); Lymphocyte % 22.9 % (19-41); Mean Corp Hgb Conc 33.7 g/dL (32-36); Mean Corpuscular Hgb 32.4 pg (27.0-32.0); Mean Corpuscular Volume 96.2 fL (81-99); Monocyte# 0.52 X10^3/uL; Monocyte% 10.1 % (0-10); NRBC Flagged by Analyzer 0 % (0-5); Neutrophil # 3.38 X10^3/uL (2.7-7.7); Neutrophil % 65.6 % (47-70); Platelet Count 172 K/mm3 (150-450); RBC Distribution Width CV 12.3 % (11.6-14.6); RBC Distribution Width SD 43.7 fl (35.1-43.9); Red Blood Count 4.26 M/mm3 (4.2-5.4); White Blood Count 5.2 K/mm3 (4.4-11.0)
[2022-04-28 18:19] LABS: ALB/GLOB Ratio 1.2 RATIO (0.9-2.4); AST(SGOT) 22 U/L (15-37); Alanine Aminotransfer ALT/SGPT 24 U/L (13-56); Albumin, Serum 3.9 g/dL (3.2-5.0); Alkaline Phosphatase 42 U/L (45-117); Anion Gap 5 (5-15); BUN 34 mg/dL (7-18); BUN/Creat Ratio 46.4 RATIO (10-20); Calcium,Total 8.9 mg/dL (8.5-10.1); Chloride 109 mmol/L (98-107); Creatinine, Serum 0.73 mg/dL (0.55-1.02); EST Glomerular Filtration Rate 88 mL/min (>60); Est Glom Filt Rate - Afr Amer 106 mL/min (>60); Globulin 3.3 g/dL (2.2-4.2); Glucose 94 mg/dL (74-106); Potassium 3.5 mmol/L (3.5-5.1); Protein, Total 7.2 g/dL (6.4-8.2); Sodium Level 140 mmol/L (136-145)
== END | disposition home or self-care (01) ==
LOC: LAB 14:55
PROVIDERS: PCP Preventive Medicine Occupational Medicine; Visit Provider Psychiatry & Neurology Neurology
DX: G35 Multiple sclerosis (principal)
CPT/HCPCS: 36415; 80053; 85025

== ENCOUNTER → 2022-10-30 | Outpatient (CLI) | payer MEDICARE, SELFPAY ==
[2022-10-30 15:29] LABS: Basophil# 0.04 X10^3/uL; Basophil% 0.8 % (0-1); Eosinophil# 0.04 X10^3/uL; Eosinophils% 0.8 % (0-5); Hematocrit 40.1 % (37-47); Hemoglobin 13.2 g/dL (12.0-15.0); Lymphocyte % 30.2 % (19-41); Mean Corp Hgb Conc 32.9 g/dL (32-36); Mean Corpuscular Hgb 31.4 pg (27.0-32.0); Mean Corpuscular Volume 95.5 fL (81-99); Mean Platelet Vol. 12.2 fl (6.2-12.0); Monocyte# 0.34 X10^3/uL; Monocyte% 6.9 % (0-10); NRBC Flagged by Analyzer 0 % (0-5); Neutrophil # 3.03 X10^3/uL (2.7-7.7); Neutrophil % 61.1 % (47-70); Platelet Count 196 K/mm3 (150-450); RBC Distribution Width CV 13.1 % (11.6-14.6); RBC Distribution Width SD 45.3 fl (35.1-43.9)
[2022-10-30 15:53] LABS: ALB/GLOB Ratio 1.2 RATIO (0.9-2.4); AST(SGOT) 17 U/L (15-37); Alanine Aminotransfer ALT/SGPT 22 U/L (13-56); Alkaline Phosphatase 49 U/L (45-117); Anion Gap 3 (5-15); BUN 17 mg/dL (7-18); BUN/Creat Ratio 22.9 RATIO (10-20); Calcium,Total 9.2 mg/dL (8.5-10.1); Chloride 112 mmol/L (98-107); Creatinine, Serum 0.74 mg/dL (0.55-1.02); EST Glomerular Filtration Rate 86 mL/min (>60); Est Glom Filt Rate - Afr Amer 104 mL/min (>60); Globulin 3.2 g/dL (2.2-4.2); Glucose 126 mg/dL (74-106); Potassium 3.6 mmol/L (3.5-5.1); Protein, Total 7.2 g/dL (6.4-8.2); Sodium Level 144 mmol/L (136-145)
[2022-11-01 04:07] LABS: Immunoglobulin A 135 mg/dL (87-352); Immunoglobulin G 1059 mg/dL (586-1602)
[2022-11-01 09:31] LABS: Immunoglobulin M 48 mg/dL (26-217)
== END | disposition home or self-care (01) ==
LOC: LAB 14:07
PROVIDERS: PCP Preventive Medicine Occupational Medicine; Visit Provider Psychiatry & Neurology Neurology
DX: G35 Multiple sclerosis (principal)
CPT/HCPCS: 36415; 80053; 82784; 85025

== ENCOUNTER → 2023-02-02 | Outpatient (CLI) | payer MEDICARE, SELFPAY ==
--- NOTE | 2023-02-02 14:52 | BI_ITS ---
MAMMOGRAPHY - BILATERAL SCREENING 3-D TOMOSYNTHESIS REASON FOR EXAM: Female, 57 years old. Routine screening PERTINENT HISTORY: Sister with breast cancer.. TECHNIQUE: 2-D mammograms and 3-D Tomosynthesis of the breast (s) were performed. CAD was performed. COMPARISON: 02/21/2017 FINDINGS: The breast composition is extremely dense tissue which lowers the sensitivity of mammography. Scattered benign calcifications are seen. No dense spiculated masses or suspicious microcalcifications are identified. No architectural distortion is identified. There is no skin thickening or retraction. There has been no significant change since the prior study. BI/SCRN MAMM (CAD)W/PK BILAT IMPRESSION: No mammographic signs of malignancy. Routine yearly mammograms recommended. ASSESSMENT CATEGORY: BIRADS Category 2: Benign. A letter regarding these results will be sent to the patient by the facility within 30 days. FOLLOW UP RECOMMENDATION: Yearly follow up mammogram recommended. (A) Approximately 10% of breast cancers are not detected by mammography. A normal mammogram should not delay biopsy of a clinically suspicious abnormality. Electronically Signed: Americo Villanueva MD at 9:12 EDT ,
== END | disposition home or self-care (01) ==
LOC: OPBI 14:49
PROVIDERS: PCP Preventive Medicine Occupational Medicine; Referring Provider Nurse Practitioner Family; Visit Provider Nurse Practitioner Family
DX: Z12.31 Encounter for screening mammogram for malignant neoplasm of breast (principal)
CPT/HCPCS: 77063; 77067

== ENCOUNTER 2023-04-09 14:00 | Outpatient (RCR) | payer MEDICARE, SELFPAY ==
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
--- NOTE | 2023-03-05 16:25 | HP.PTREVAL ---
Dr. Jose A Chun MD, It has been my pleasure to treat JAMEL PARKS over the last 8 visits for MS; GAIT AND BALANCE DIFFICULTY. Please see the progress note below for an update on the physical therapy plan of care! Subjective: PATIENT REPORTS SHE IS SEEING IMPROVEMENT BUT SHE IS SHAKY TODAY FOR NO APPARENT REASON. STATES SHE WILL CALL DR. MCGUIRE IF NEEDED. SHE STATES THAT OTHER THAN BEING SHAKY WALKING SHE FEELS FINE. SHE REPORTS THAT THE MORE SHE MOVES AROUND TODAY THE LESS SHAKY SHE IS GETTING. Objective/Function: PATIENT WAS SEEN TODAY FOR RE-ASSESSMENT OF PROGRESS TOWARD THE SET PT GOALS AND THE NEED FOR FURTHER PHYSICAL THERAPY VS READINESS FOR DISCHARGE. PATIENT IS MAKING SLOW PROGRESS WITH PT AND APPEARS TO BE A GOOD CANDIDATE TO CONTINUE BASED ON PROGRESS MADE AND ROOM FOR FURTHER IMPROVEMENT. UPON EXAM TODAY: Motor deficit: LLE: HIP 4-/5, KNEE 4/5, ANKLE 4/5. RLE: HIP 3+/5, KNEE 4-/5, ANKLE 4/5. Lumbar mvmt loss: flex - NIL. ext - MOD. R SG - MOD. L SG - MOD. PATIENT DENIES PAIN WITH LUMBAR ROM TESTING ALL PLANES. Core strength: POOR. PATIENT AMBULATES INDEP'LY INTO PT TODAY WITH WALKING STICK WITH SHAKY GAIT PATTERN BUT NO LOB. SEE STS AND TUG TIME TESTS BELOW. TUG TIME IS SLIGHTLY SLOWER TODAY BUT STS TEST HAS IMPROVED BY ONE REP. LEFS SCORE HAS IMPROVED FROM 35 TO 40. PATIENT MAY BENEFIT FROM LONGER PT SESSIONS. PATIENT IS AGREEABLE. [ End ] Plan Plan: GAIT AND BALANCE TRAINING. CORE STRENGTHENING. CARLIE LE ROM, STRETCHING AND STRENGTHENING. PATIENT IS LOOKING INTO [employer] AND WILL NEED TESTING/GUIDANCE FOR SAFETY. Balance/Gait/Functional tests - Balance/Special Test Scores Lower Extremity Functional Score: 40 TUG Test Time Seconds: 29.97 Tug Test: >30sec.=impaired mobility 30 Second Chair Rise Test Seconds: 6 Goals Goal 1:: PATIENT WILL COMPLETE 8 STANDS IN 30 SECS TO DEMONSTRATE IMPROVED FUNCTIONAL STRENGTH Goal Time Frame: 4-6 Weeks Goal Progress: Progressing Goal 2:: PATIENT WILL COMPLETE TUG IN < 20 SECS TO DEMONSTRATE IMPROVED GAIT STABILITY Goal Time Frame: 4-6 Weeks Goal Progress: Not Progressing Goal 3:: PATIENT WILL BE INDEP WITH A HEP FOR CONTINUED IMPROVEMENT ONCE FORMAL PHYSICAL THERAPY CONCLUDES. Goal Time Frame: 4-6 Weeks Goal Progress: Progressing Anticipated Interventions Patient/Client Instruction: Educate patient on: Condition, Plan of Care, Risk Factors For the Purpose of:: To improve self management Therapeutic Exercise to Include: Strength training, Balance training, Flexibilty training, Gait and locomotor training, Neuromotor development, Dynamic Lumbar Stabilization For the Purpose of:: To improve muscle performance and motor function, To increase tolerance to activity/condition/position, To improve ability of physical actions for home/community/work/leisure, To improve gait and locomotor functions Please do not hesitate to contact me at [phone] by phone or if you have questions or concerns regarding this new plan of care! Sincerely, Lizeth Munoz, PT, Cert MDT
--- NOTE | 2023-07-25 13:24 | HP.PT.NRP ---
Patient Information Patient Information: JAMEL PARKS was seen in my office for initial evaluation on 02/12/23. The following Plan of Care was established for this patient: POC Established Initial Frequency: 2-3x /Week Initial Duration: 4-6 Weeks Anticipated Interventions Patient/Client Instruction: Educate patient on: Condition, Plan of Care and Risk Factors For the Purpose of:: To improve self management Therapeutic Exercise to Include: Strength training, Balance training, Flexibilty training, Gait and locomotor training, Neuromotor development and Dynamic Lumbar Stabilization For the Purpose of:: To improve muscle performance and motor function, To increase tolerance to activity/condition/position, To improve ability of physical actions for home/community/work/leisure and To improve gait and locomotor functions Last Seen Last Seen: This patient was last seen in our office 04/09/23. Pertinent comments regarding their Physical therapy will appear below: This patient has not returned to Physical Therapy and is appropriate to return to MD for further follow-up as needed. At this point I will be discontinuing this patient from physical therapy. I would be happy to see this patient again in the future if found appropriate by the physician. Thank you! Lizeth Munoz, PT, Cert MDT Balance/Gait/Functional tests Balance/Special Test Scores Lower Extremity Functional Score: 40 TUG Test Time Seconds: 29.97 Tug Test: >30sec.=impaired mobility 30 Second Chair Rise Test Seconds: 6
== END 2023-04-09 19:00 | disposition home or self-care (01) ==
LOC: PT 14:00
PROVIDERS: PCP Preventive Medicine Occupational Medicine; Referring Provider Psychiatry & Neurology Neurology; Visit Provider Psychiatry & Neurology Neurology
DX: G35 Multiple sclerosis (principal)
CPT/HCPCS: 97110; 97162; 97164

== ENCOUNTER → 2023-05-09 | Outpatient (CLI) | payer MEDICARE, SELFPAY ==
[2023-05-09 12:34] LABS: Absolute Lymphocyte Count 1.36 X10^3/uL (0.83-4.51); Basophil# 0.03 X10^3/uL; Basophil% 0.8 % (0-1); Eosinophil# 0.04 X10^3/uL; Eosinophils% 1.1 % (0-5); Hemoglobin 13.7 g/dL (12.0-15.0); Lymphocyte # 1.36 X10^3/ul (0.83-4.51); Lymphocyte % 36.7 % (19-41); Mean Corp Hgb Conc 32.6 g/dL (32-36); Mean Corpuscular Hgb 31.4 pg (27.0-32.0); Mean Corpuscular Volume 96.3 fL (81-99); Mean Platelet Vol. 11.9 fl (6.2-12.0); Monocyte# 0.28 X10^3/uL; Monocyte% 7.5 % (0-10); NRBC Flagged by Analyzer 0 % (0-5); Neutrophil # 1.99 X10^3/uL (2.7-7.7); Neutrophil % 53.6 % (47-70); Platelet Count 179 K/mm3 (150-450); RBC Distribution Width CV 12.1 % (11.6-14.6); RBC Distribution Width SD 43.2 fl (35.1-43.9); Red Blood Count 4.36 M/mm3 (4.2-5.4); White Blood Count 3.7 K/mm3 (4.4-11.0)
[2023-05-09 12:53] LABS: ALB/GLOB Ratio 1.2 RATIO (0.9-2.4); AST(SGOT) 19 U/L (15-37); Alanine Aminotransfer ALT/SGPT 19 U/L (13-56); Albumin, Serum 3.9 g/dL (3.2-5.0); Alkaline Phosphatase 46 U/L (45-117); Anion Gap 3 (5-15); BUN 16 mg/dL (7-18); Calcium,Total 8.8 mg/dL (8.5-10.1); Chloride 111 mmol/L (98-107); EST Glomerular Filtration Rate 79 mL/min (>60); Est Glom Filt Rate - Afr Amer 95 mL/min (>60); Globulin 3.2 g/dL (2.2-4.2); Glucose 88 mg/dL (74-106); Potassium 3.7 mmol/L (3.5-5.1); Protein, Total 7.1 g/dL (6.4-8.2); Sodium Level 144 mmol/L (136-145)
[2023-05-10 05:07] LABS: Immunoglobulin A 129 mg/dL (87-352); Immunoglobulin G 1142 mg/dL (586-1602); Immunoglobulin M 41 mg/dL (26-217)
== END | disposition home or self-care (01) ==
PROVIDERS: PCP Preventive Medicine Occupational Medicine; Referring Provider Psychiatry & Neurology Neurology; Visit Provider Psychiatry & Neurology Neurology
DX: G35 Multiple sclerosis (principal)
CPT/HCPCS: 36415; 80053; 82784; 85025

== ENCOUNTER → 2023-11-12 | Outpatient (CLI) | payer MEDICARE, SELFPAY ==
[2023-11-14 06:09] LABS: Immunoglobulin G 1055 mg/dL (586-1602); Immunoglobulin M 37 mg/dL (26-217)
== END | disposition home or self-care (01) ==
PROVIDERS: PCP Preventive Medicine Occupational Medicine; Referring Provider Psychiatry & Neurology Neurology; Visit Provider Psychiatry & Neurology Neurology
DX: G35 Multiple sclerosis (principal)
CPT/HCPCS: 36415; 82784

== ENCOUNTER → 2024-02-27 | Outpatient (CLI) | payer MEDICARE, SELFPAY ==
--- NOTE | 2024-02-27 12:51 | US_ITS ---
STUDY: RENAL ULTRASOUND - COMPLETE REASON FOR EXAM: Female, 58 years old. UTI TECHNIQUE: Ultrasound evaluation of the kidneys was performed with real-time and static nixon-scale imaging. COMPARISON: None. FINDINGS: RIGHT KIDNEY: Normal location of the right kidney, which is normal in size. The right kidney measures 9.7 cm x 5.1 cm x 4.1 cm. There is a normal cortex of the right kidney. The renal cortex measures 1.5 cm. There is no right renal mass or cyst. There are no right renal calculi. There is no right hydronephrosis. DISTAL RIGHT URETER: There is non-visualization of the distal right ureter. There is no demonstrated right ureterovesical junction calculus. There is a visualized right ureteral jet. LEFT KIDNEY: Normal location of the left kidney, which is normal in size. The left kidney measures 11.4 cm x 5.2 cm x 4.2 cm. There is a normal cortex of the left kidney. The renal cortex measures 1.1 cm. There is no left renal mass or cyst. There are no left renal calculi. There is an extra-renal pelvis of the left kidney. There is no distention of the renal calyces. DISTAL LEFT URETER: There is non-visualization of the distal left ureter. There is no demonstrated left ureterovesical junction calculus. There is a visualized left ureteral jet. BLADDER: The distended urinary bladder has a volume of 227 ml. There is a normal wall thickness of the distended urinary bladder. There is no demonstrated mass within the urinary bladder. There are no demonstrated bladder calculi. US/Kidney and Bladder IMPRESSION: Normal ultrasound of the kidneys and urinary bladder. Electronically Signed: Ridge Lorenzo MD at 15:37 EDT ,
== END | disposition home or self-care (01) ==
LOC: US 12:49
PROVIDERS: PCP Preventive Medicine Occupational Medicine; Referring Provider Urology; Visit Provider Urology
DX: N39.0 Urinary tract infection, site not specified (principal)
CPT/HCPCS: 76770

== ENCOUNTER → 2024-05-07 | Outpatient (CLI) | payer MEDICARE, SELFPAY ==
[2024-05-07 11:32] LABS: Absolute Neutrophil Count 2.8 X10^3/uL (2.0-7.7); Basophil# 0.04 X10^3/uL; Basophil% 0.9 % (0-1); Eosinophil# 0.04 X10^3/uL; Eosinophils% 0.9 % (0-5); Hematocrit 40.7 % (37-47); Hemoglobin 13.5 g/dL (12.0-15.0); Lymphocyte % 28.3 % (19-41); Mean Corp Hgb Conc 33.2 g/dL (32-36); Mean Corpuscular Hgb 31.4 pg (27.0-32.0); Mean Corpuscular Volume 94.7 fL (81-99); Monocyte# 0.39 X10^3/uL; Monocyte% 8.5 % (0-10); NRBC Flagged by Analyzer 0 % (0-5); Neutrophil # 2.81 X10^3/uL (2.7-7.7); Neutrophil % 61.2 % (47-70); Platelet Count 189 K/mm3 (150-450); RBC Distribution Width CV 12.6 % (11.6-14.6); RBC Distribution Width SD 43.6 fl (35.1-43.9); White Blood Count 4.6 K/mm3 (4.4-11.0)
[2024-05-07 12:36] LABS: ALB/GLOB Ratio 1.3 RATIO (0.9-2.4); AST(SGOT) 19 U/L (15-37); Alanine Aminotransfer ALT/SGPT 21 U/L (13-56); Albumin, Serum 4.1 g/dL (3.2-5.0); Alkaline Phosphatase 59 U/L (45-117); Anion Gap 5 (5-15); BUN 18 mg/dL (7-18); BUN/Creat Ratio 20.6 RATIO (10-20); Calcium,Total 9.6 mg/dL (8.5-10.1); Chloride 108 mmol/L (98-107); Creatinine, Serum 0.87 mg/dL (0.55-1.02); EST Glomerular Filtration Rate 71 mL/min (>60); Est Glom Filt Rate - Afr Amer 86 mL/min (>60); Globulin 3.2 g/dL (2.2-4.2); Glucose 115 mg/dL (74-106); Potassium 3.9 mmol/L (3.5-5.1); Protein, Total 7.3 g/dL (6.4-8.2); Sodium Level 141 mmol/L (136-145)
[2024-05-08 14:10] LABS: Immunoglobulin A 119 mg/dL (87-352); Immunoglobulin G 1180 mg/dL (586-1602); Immunoglobulin M 45 mg/dL (26-217)
== END | disposition home or self-care (01) ==
PROVIDERS: PCP Preventive Medicine Occupational Medicine; Referring Provider Psychiatry & Neurology Neurology; Visit Provider Psychiatry & Neurology Neurology
DX: G35 Multiple sclerosis (principal)
CPT/HCPCS: 36415; 80053; 82784; 85025

== ENCOUNTER → 2024-11-17 | Outpatient (CLI) | payer MEDICARE, SELFPAY ==
[2024-11-17 12:18] LABS: Absolute Lymphocyte Count 1.09 X10^3/uL (0.83-4.51); Absolute Neutrophil Count 1.8 X10^3/uL (2.0-7.7); Basophil# 0.04 X10^3/uL; Basophil% 1.2 % (0-1); Eosinophil# 0.06 X10^3/uL; Eosinophils% 1.8 % (0-5); Hematocrit 40.1 % (37-47); Hemoglobin 13.1 g/dL (12.0-15.0); Lymphocyte # 1.09 X10^3/ul (0.83-4.51); Lymphocyte % 33.3 % (19-41); Mean Corp Hgb Conc 32.7 g/dL (32-36); Mean Corpuscular Hgb 31.1 pg (27.0-32.0); Mean Corpuscular Volume 95.2 fL (81-99); Mean Platelet Vol. 11.8 fl (6.2-12.0); Monocyte# 0.27 X10^3/uL; Monocyte% 8.3 % (0-10); NRBC Flagged by Analyzer 0 % (0-5); Neutrophil # 1.81 X10^3/uL (2.7-7.7); Neutrophil % 55.4 % (47-70); Platelet Count 190 K/mm3 (150-450); RBC Distribution Width SD 42.2 fl (35.1-43.9); Red Blood Count 4.21 M/mm3 (4.2-5.4); White Blood Count 3.3 K/mm3 (4.4-11.0)
[2024-11-17 12:41] LABS: ALB/GLOB Ratio 1.3 RATIO (0.9-2.4); AST(SGOT) 16 U/L (15-37); Alanine Aminotransfer ALT/SGPT 19 U/L (13-56); Albumin, Serum 4.1 g/dL (3.2-5.0); Alkaline Phosphatase 45 U/L (45-117); Anion Gap 4 (5-15); BUN 21 mg/dL (7-18); BUN/Creat Ratio 29.5 RATIO (10-20); Calcium,Total 9.1 mg/dL (8.5-10.1); Chloride 108 mmol/L (98-107); Creatinine, Serum 0.71 mg/dL (0.55-1.02); EST Glomerular Filtration Rate 90 mL/min (>60); Est Glom Filt Rate - Afr Amer 109 mL/min (>60); Globulin 3.1 g/dL (2.2-4.2); Glucose 97 mg/dL (74-106); Potassium 3.3 mmol/L (3.5-5.1); Protein, Total 7.2 g/dL (6.4-8.2); Sodium Level 142 mmol/L (136-145)
[2024-11-18 12:07] LABS: Immunoglobulin A 117 mg/dL (87-352); Immunoglobulin G 1125 mg/dL (586-1602); Immunoglobulin M 39 mg/dL (26-217)
== END | disposition home or self-care (01) ==
LOC: LAB 11:36
PROVIDERS: PCP Preventive Medicine Occupational Medicine; Referring Provider Psychiatry & Neurology Neurology; Visit Provider Psychiatry & Neurology Neurology
DX: G35 Multiple sclerosis (principal)
CPT/HCPCS: 36415; 80053; 82784; 85025

== ENCOUNTER → 2025-05-01 | Outpatient (CLI) | payer MEDICARE, SELFPAY ==
[2025-05-01 17:49] LABS: Hematocrit 39.7 % (37-47); Hemoglobin 13.6 g/dL (12.0-15.0); Mean Corp Hgb Conc 34.3 g/dL (32-36); Mean Corpuscular Hgb 32.2 pg (27.0-32.0); Mean Corpuscular Volume 94.1 fL (81-99); Mean Platelet Vol. 12.1 fl (6.2-12.0); Platelet Count 247 K/mm3 (150-450); RBC Distribution Width SD 41.3 fl (35.1-43.9); Red Blood Count 4.22 M/mm3 (4.2-5.4); White Blood Count 7.7 K/mm3 (4.4-11.0)
[2025-05-01 18:10] LABS: Anion Gap 11 (5-15); BUN 18 mg/dL (4-19); BUN/Creat Ratio 19.2 RATIO (10-20); Calcium,Total 9.7 mg/dL (7.6-11.0); Carbon Dioxide 26.2 mmol/L (21.0-32.0); Chloride 106 mmol/L (98-108); Creatinine, Serum 0.92 mg/dL (0.70-1.20); EST Glomerular Filtration Rate 73 (>60); Glucose 118 mg/dL (70-99); Potassium 3.9 mmol/L (3.3-5.1); Sodium Level 143 mmol/L (133-145)
== END | disposition home or self-care (01) ==
LOC: MTLAB 15:39
PROVIDERS: PCP Preventive Medicine Occupational Medicine; Referring Provider Urology; Visit Provider Urology
DX: N31.9 Neuromuscular dysfunction of bladder, unspecified (principal)
CPT/HCPCS: 36415; 80048; 85027

== ENCOUNTER 2025-05-14 10:25 | Day surgery (SDC) | payer MEDICARE, SELFPAY ==
[2025-05-14] VITALS (8 sets, daily range): BP systolic 94–106; BP diastolic 60–76; PULSE 59–68; RESP 16–66; TEMP 36.1–36.5; O2SAT 100; BMI 16.7
--- NOTE | 2025-05-14 09:54 | OP.PCM_ITS ---
Problems Associated Problem List Diagnoses (1) Urge incontinence: Operative Report (Standard) Operative Information Date of Procedure: 05/14/25 Pre-Operative Diagnosis: Urge incontinence Post-Operative Diagnosis: Same Surgery/Procedure Performed: InterStim battery replacement park interpretive specialist: No Type of Anesthesia: Local and MAC RN Documented Start/Stop Times: Operation Date: 05/14/25 12:00 Case Time Into Pre-Op 05/14/25 10:45 Anesthesia Start 05/14/25 11:43 Into Room 05/14/25 11:43 Out of Pre-Op 05/14/25 11:43 Procedure Start 05/14/25 11:56 Procedure Start Time: 11:56 Procedure Stop Time: 12:10 Select all DRAINS/GRAFTS/IMPLANTS that apply: Implanted device Implanted device details: InterStim battery Estimated Blood Loss: <5cc Specimen collected: No Description of surgery: The patient is a 60-year-old female with an indwelling InterStim with a battery. She now presents for battery change. Informed consent has been obtained. Patient was taken to the operating room and placed in a prone position on the operating room table. Anesthesia monitored the head, neck, airway, IV access and vital signs throughout the case. Once the anesthesia was appropriately administered, she was prepped and draped in usual sterile fashion. The area surrounding the pocket site was infiltrated with lidocaine with epinephrine. The incision was opened using a knife. The pocket site was opened and the battery was brought into the operative field. There was no evidence of purulent fluid or infection at this time. The pocket was irrigated with sterile water. The battery was removed using the torque wrench. The battery was attached to, torque wrench. The battery was placed into the pocket and the pocket was closed in 2 layers using 3-0 interrupted Vicryl followed by 4-0 Monocryl subcuticular closure. Skin glue was then applied. Patient was then awakened and taken to the recovery room in good condition. There were no complications during the procedure. Surgical Findings: No evidence of infection, battery changed Complications Complications: No Admit VTE Documentation VTE Present on Admission: Yes VTE Mechan Device Prophylaxis: SCD's VTE Pharm Prophylaxis ordered?: No Reason prophylaxis not ordered: Treatment Not Indicated
--- NOTE | 2025-05-14 09:58 | EX.PCM.DISCH ---
Discharge Instructions Diet Discharge Diet: No restrictions Activity Discharge Activity: May Shower (In 2 days) Lifting Restrictions: 10 pounds for the next 4 weeks Dressing / Incision Call your doctor if your incision/area has: Continuous Slow Oozing, Sudden Increased Bleeding, Foul Smelling Discharge and Swelling at the incision site Call your doctor if you observe: Fever of 101 or Higher, Inability to urinate and Inability to have a bowel movement Remove Dressing in: leave until fall off Follow Up Care Please Follow Up With: Gladis Ayala MD When: The office to call to make follow-up arrangements. Test Results: Test results from this visit will be discussed in further detail at your follow-up appointment, if applicable. Discharge Plan Admission Attending Provider: Gladis Ayala Primary Care Provider: Brandon Cervantes Instructions Print Language: Montserratian Discharge Orders/Prescriptions Prescriptions: New oxycodone-acetaminophen 5-325 mg tablet 1 tab PO Q8H PRN (Reason: pain) 3 Days Qty: 10 0RF ondansetron 4 mg tablet,disintegrating 4 mg PO Q8H PRN (Reason: nausea and vomiting) Qty: 10 0RF Continued cholecalciferol (vitamin D3) 1,000 unit capsule 1,000 unit PO DAILY cyanocobalamin (vitamin B-12) 1,000 MCG tablet 1,000 mcg PO DAILY oxybutynin chloride 15 mg tablet extended release 24hr 15 mg PO DAILY nitrofurantoin monohyd/m-cryst 100 mg capsule 1 cap PO BID Referrals / Follow Up: Brandon Cervantes DO [Primary Care Provider] - Disposition Disposition (needs filled in before D/C Order can be placed): Home, Self Care
[2025-05-14] MEDS: Vancomycin IV 1,000 MG/200 ML BAG 200 MG IV (11:11)
[2025-05-14] MEDS: Lactated Ringers 1,000 ML 15 ML IV (11:12)
--- OUTSIDE RECORDS SUMMARY | 2025-05-14 11:18 | XMS RPT_ITS | CCD ---
Author Organization [facility] Care Team Providers Care Fish Processor Name Role Phone Dr. Ajay Mcguire Primary Care Provider Dr. Ajay Mcguire Referring Provider [phone] Dr. Radha Dukes Attending Provider 1330 Dr. Ricco Giordano Attending Provider 1330 AJAY MCGUIRE DO Primary Care Physician [phone] JOSE A SUTTON Referring Unavailable MD JOHN PETTY Attending Unavailable [facility] Care UnavaNARDA Perez DO Attending Unavailable AJAY MCGUIRE DO Primary Care Unavailable Dr. Ajay Mcguire DO Primary Care Provider [phone] Dr. Gladis Ayala MD Attending Provider Dr. Gladis Ayala MD Referring Provider Dr. Ajay Mcguire DO Referring Provider Yazimn Whyte Attending Provider Jose A Sutton Attending Unavailable Jose A Sutton Referring Unavailable Ajay Mcguire Primary Care Unavailable Ajay Mcguire Primary Care Unavailable Gladis Ayala Attending Unavailable Gladis Ayala Referring Unavailable Ajay Mcguire Primary Care Unavailable Gladis Ayala Attending Unavailable Ajay Mcguire Primary Care Unavailable Ajay Mcguire Referring Unavailable Yazmin Lara Attending Unavailable Allergies Allergy Classification Reported Allergen(s) Allergy Type Date of Onset Reaction(s) Facility (11 sources) Latex Allergy to substance 2 Eruption of skin (disorder) [facility] (10 sources) Penicillins; Translations: [Penicillins] Allergy to substance 2 difficulty breathing [facility] (1 source) AMPRYA Allergy to substance 2 STROKE [facility] Work Phone: (8 sources) dalfampridine Drug Allergy 2 stroke [facility] (2 sources) Penicillin; Translations: [penicillin] Drug Allergy Anaphylaxis (disorder), Eruption of skin (disorder) [facility] [place] (1 source) dalfampridine Drug Allergy 5 [facility] (1 source) Latex Drug allergy (disorder) 5 [facility] (1 source) vibegron Drug allergy (disorder) 5 [facility] Medications Current Medications Medication Drug Class(es) Dates Sig (Normalized) Sig (Original) cholecalciferol 0.025 mg oral capsule (9 sources) Vitamin D Start: 08-14-2019 take 1 capsule by mouth once daily Cholecalciferol (Vitamin D3) 1,000 unit capsule Active 1000 U PO DAILY August 14, 2019 12:00am ibuprofen 200 mg oral tablet (2 sources) Nonsteroidal Anti-inflammatory Drug Start: 09-05-2023 ibuprofen 200 mg oral tablet Dose : 400 mg = 2 tab(s), Oral, q6hr, PRN pain or fever, 0 Refill(s) Start Date: 09/05/23 Status: Ordered levoFLOXacin 750 mg oral tablet (1 source) Quinolone Antimicrobial Start: 10-16-2023 End: 10-26-2023 levoFLOXacin 750 mg oral tablet Dose : 750 mg = 1 tab(s), Oral, q24h, X 10 day(s), # 10 tab(s), 0 Refill(s), 10/26/23 6:36:00 PM EST, Pharmacy: [facility], 167, cm, 10/16/23 17:37:00 EST, Height, 47, kg, 10/16/23 17:37:00 EST, Dosing Weight Start Date: 10/16/23 Stop Date: 10/26/23 Status: Ordered nitrofurantoin, macrocrystals 25 mg / nitrofurantoin, monohydrate 75 mg oral capsule (1 source) Nitrofuran Antibacterial Start: 08-08-2024 End: 08-13-2024 Macrobid 100 mg oral capsule Dose : 100 mg = 1 cap(s), Oral, BID, Take with food, X 5 day(s), # 10 cap(s), 0 Refill(s), 08/13/24 1:32:00 PM EDT, Pharmacy: [facility], Urinary frequency Dysuria, 167, cm, 08/08/24 12:37:00 EDT, Height, 43.8, kg, 08/08/24 12:37:00 EDT, Dosing Weight Start Date: 08/08/24 Stop Date: 08/13/24 Status: Ordered 10 ml ocrelizumab 30 mg/ml injection (2 sources) Start: 10-16-2023 ocrelizumab 300 mg/10 mL intravenous solution Dose : 600 mg =, IV Piggyback, q6mo, 0 Refill(s) Start Date: 10/16/23 Status: Ordered ondansetron 4 mg disintegrating oral tablet (1 source) Serotonin-3 Receptor Antagonist Start: 10-17-2023 End: 10-22-2023 ondansetron 4 mg oral tablet, disintegrating Dose : 4 mg = 1 tab(s), Oral, q8h, PRN Nausea, allow tablet to dissolve on tongue, X 5 day(s), # 15 tab(s), 0 Refill(s), 10/22/23 4:26:00 PM EST, Pharmacy: [facility], 167, cm, 10/16/23 17:37:00 EST, Height, kg, 10/16/23 17:37:00 EST, Dosing Weight Start Date: 10/17/23 Stop Date: 10/22/23 Status: Ordered 24 hr oxybutynin chloride 15 mg extended release oral tablet (11 sources) Cholinergic Muscarinic Antagonist Start: 03-20-2024 End: 10-06-2024 take 1 tablet by mouth every hour, then take 1 tablet by mouth once daily oxybutynin 15 mg/24 hr oral tablet, extended release Dose : 15 mg = 1 tab(s), Oral, qDay, # 100 tab(s), 1 Refill(s), Pharmacy: [facility], 167, cm, 10/16/23 17:37:00 EST, Height, kg, 10/16/23 17:37:00 EST, Dosing Weight Start Date: 03/20/24 Stop Date: 10/06/24 Status: Ordered Start: 09-17-2023 take 1 tablet by josé miguel th every hour oxybutynin 15 mg/24 hr oral tablet, extended release Dose : 15 mg = 1 tab(s), Oral, qDay, Replaces previous prescription for the 5 mg tablets., # 90 tab(s), 1 Refill(s), Pharmacy: [facility], 167, cm, 09/17/23 14:18:00 EDT, Height, kg, 09/17/23 14:18:00 EDT, Dosing Weight Start Date: 09/17/23 Status: Ordered Start: 01-13-2022 End: 05-02-2025 take 1 tablet by mouth once daily Oxybutynin Chloride 15 mg Tablet Extended Release 24hr Discontinued 15 mg PO DAILY January 13, 2022 1:00am May 02, 2025 9:46am predniSONE 10 mg oral tablet (2 sources) Start: 05-02-2025 Prednisone 10 mg tablet Active 10 mg PO As Directed May 02, 2025 12:00am By mouth- take 4 tablets for 3 days then take 3 tablets for 3 days then take 2 tablets for 3 days then take 1 tablet for 3 days vitamin b12 1 mg oral tablet (11 sources) Vitamin B12 Start: 09-24-2020 take 1 tablet by mouth once daily Cyanocobalamin (Vitamin B-12) 1,000 MCG tablet Active 1000 ug PO DAILY September 24, 2020 12:00am Start: 11-04-2010 take 1 dose by mouth once jeremy y Vitamin B12 Dose : 1,000 mcg =, Oral, Daily, 0 Refill(s), current med (Hx) Start Date: 11/04/10 Status: Ordered Vitamin D with Minerals oral tablet (2 sources) Start: 02-27-2020 take 1 tablet by mouth once daily Vitamin D with Minerals oral tablet Dose = 1 tab(s), Oral, qDay, # 30 tab(s), 0 Refill(s) Start Date: 02/27/20 Status: Ordered Completed/Discontinued Medications Medication Drug Class(es) Dates Sig (Normalized) Sig (Original) acetaminophen 325 mg / HYDROcodone bitartrate 5 mg oral tablet (18 sources) Opioid Agonist Start: 10-27-2020 End: 11-03-2020 Hydrocodone-Acetami nophen 1 TABLET tablet Discontinued 1 {tbl} PO EVERY 4 HOURS NEEDED as needed for Pain 10 October 27, 2020 November 02, 2020 1:00am November 03, 2020 1:03am Start: 10-27-2020 End: 11-03-2020 take 1 tablet by mouth every four hours as needed Hydrocodone-Acetaminophen Discontinued 1 TABLET PO EVERY 4 HOURS NEEDED 10 October 27, 2020 November 03, 2020 1:03am Start: 10-01-2020 End: 10-08-2020 Hydrocodone-Acetaminophen 1 EACH tablet Discontinued 1 NMA PO EVERY 4 HOURS NEEDED as needed for Pain Score 1-10 09 01October 01, 2020 October 07, 2020 1:00am October 08, 2020 1:03am Start: 10-01-2020 End: 10-08-2020 Hydrocodone-Acetaminophen Di scontinued 1 EACH PO EVERY 4 HOURS NEEDED 09 01October 01, 2020 October 08, 2020 1:03am acetaminophen 325 mg / oxyCODONE hydrochloride 5 mg oral tablet (9 sources) Opioid Agonist Start: 01-20-2022 End: 05-02-2025 Oxycodone-Acetaminophen 5-32 5 mg tablet Discontinued 1 {tbl} PO EVERY 6 HOURS as needed for pain 14 7 January 20, 2022 May 02, 2025 9:46am Start: 01-20-2022 take 1 tablet by josé miguel th every six hours Oxycodone-Acetaminophen Active 1 TABLET PO EVERY 6 HOURS 14 7 January 20, 2022 ascorbic acid 500 mg oral tablet (9 sources) Vitamin C Start: 01-13-2022 End: 05-02-2025 take 1 tablet by mouth once daily Ascorbic Acid (Vitamin C) (Vitamin C) 500 mg Tablet Discontinued 500 mg PO DAILY January 13, 2022 1:00am May 02, 2025 9:46am ciprofloxacin 500 mg oral tablet (9 sources) Quinolone Antimicrobial Start: 01-20-2022 End: 05-02-2025 take 1 tablet by mouth twice daily Ciprofloxacin Hcl 500 mg tablet Discontinued 500 mg PO TWICE A DAY 10 January 20, 2022 1:00am May 02, 2025 9:46am vitamin b6 100 mg oral tablet (9 sources) Start: 01-13-2022 End: 05-02-2025 take 1 tablet by mouth once daily Pyridoxine (Vitamin B6) (Vitamin B-6) 100 mg Tablet Discontinued 100 mg PO DAILY January 13, 2022 1:00am May 02, 2025 9:46am Problems Active Problems Problem Classification Problem Date Documented Date Episodic/Chronic Genitourinary symptoms and ill-defined conditions (13 sources) Urge incontinence of urine; Translations: [Urge incontinence] Onset: 08-08-2024 10-27-2020 Chronic Lymphadenitis (2 sources) Cervical lymphadenopathy 10-16-2023 Episodic Multiple sclerosis (17 sources) Multiple sclerosis; Translations: [Multiple sclerosis] Onset: 08-08-2024 04-16-2023 Chronic Comment on above: uses a cane Other acquired deformities (6 sources) Scoliosis of lumbar spine; Translations: [Scoliosis, unspecified] 04-17-2023 Chronic Other acquired deformities (4 sources) Scoliosis, unspecified; Translations: [Scoliosis [and kyphoscoliosis], idiopathic] 04-16-2023 Chronic Other bone disease and musculoskeletal deformities (12 sources) Segmental and somatic dysfunction; Translations: [Segmental and somatic dysfunction of lumbar region] 04-17-2023 Episodic Other bone disease and musculoskeletal deformities (4 sources) Segmental and somatic dysfunction of lumbar region; Translations: [Nonallopathic lesions, lumbar region] 04-16-2023 Episodic Other bone disease and musculoskeletal deformities (4 sources) Segmental and somatic dysfunction of pelvic region; Translations: [Nonallopathic lesions, pelvic region] 04-16-2023 Episodic Other circulatory disease (2 sources) History of cerebrovascular accident 10-16-2023 Episodic Other diseases of bladder and urethra (1 source) Neuromuscular dysfunction of bladder, unspecified; Translations: [Neuromuscular dysfunction of bladder, unspecified] Onset: 05-07-2025 Chronic Spondylosis; intervertebral disc disorders; other back problems (10 sources) Backache; Translations: [Dorsalgia, unspecified] 04-17-2023 Episodic Unclassified (2 sources) Finding of region of thorax 10-16-2023 Past or Other Problems Problem Classification Problem Date Documented Da te Episodic/Chronic Genitourinary symptoms and ill-defined conditions (4 sources) Frequency of micturition; Translations: [Dysuria] Onset: 08-08-2024 Episodic Unclassified (8 sources) tubal ligation 06-25-2022 Results Test Name Value Interpretation Reference Range Facility Urgent Care Visit Reporton 0 05-02-2025 Urgent Care Visit Report [facility] [address], [address] [place], [place] [address] OFFICE VISIT Date of Service: 05/02/25 MR#: [id number] Acct: [id number] Name: JAMEL PARKS Rep #: [id number] : 1965 Provider: WOJCIECH Lara Age/Sex: 60/F Location: [facility] Status: Signed Intake Vital Signs 04/16/23 15:03 05/02/25 09:45 Height 5 ft 5.5 in 5 ft 6 in Weight: 102 lb 4 oz BMI 16.5 BP 120/80 Position Sitting Pulse 91 Temp 98.5 F Temp Source Oral Pulse Oximetry (%) 98 Oxygen Delivery Method room air Intake Visit Reasons: MS FLARE/NEEDS STEROID Chief Complaint: low back pain Accompanied by: Daughter Allergies latex Allergy (Verified 05/02/25 10:01) Rash Penicillins Allergy (Verified 05/02/25 10:01) difficulty breathing dalfampridine (From Ampyra) Adverse Reaction (Verified 05/02/25 10:01) stroke Medications ???Medication ???Instructions ???Recorded ???Confirmed ???Type cholecalciferol (vitamin D3) 25 1,000 unit PO DAILY 08/14/1905/02 History mcg (1,000 unit) capsule cyanocobalamin (vitamin B-12) 1,000 mcg PO DAILY supplement 08/2805/02/25 History 1,000 mcg tablet prednisone 10 mg tablet 10 mg PO DIRECTED #30 tabs 06/1905/02/25 Rx Nurse's Note: Patient is here for a MS flare. Patient states it started last night after she took Gemtesa that was given to her by Dr Ayala. [facility] Medical History Ambulates with cane Bite by animal Easy bruising Excessive bleeding Former smoker Multiple sclerosis Stroke Wears dentures Surgical History History of bladder surgery tubal ligation Social History Smoking Status: Former smoker HPI HPI Chief Complaint: low back pain Details: JAMEL PARKS, is a 60 F who presents to the office today for MS exacerbation -Saw provider yesterday and was started on Gemtesa took last night - was taken of Oxybutynin- then last night started feeling numb, funny , shaking- was not having any sx prior to the medicine- sx consistent with MS exacerbations in the past -no falls or injuries Exam Const General: cooperative and no acute distress Orientation: alert and oriented x3 HENMT Head: normal to inspection and normocephalic Eyes Pupils: PERRL, normal by confrontation and accommodation normal EOM: EOM intact bilaterally Neck Neck: normal visual inspection, full ROM and no lymphadenopathy Resp Effort Inspection: normal respiratory effort, able to speak in complete sentences and symmetric chest movement Auscultation: Bilateral: Clear to Auscultation, Left: Clear to Auscultation and Right: Clear to Auscultation Cardio Rate: regular rate Rhythm: regular rhythm Heart Sounds: S1 normal and S2 normal GI Auscultation: normal bowel sounds Palpation: soft and no hepatosplenomegaly Neuro General: patient alert, patient awake and patient oriented x3 Cranial Nerves: sense of smell intact (not tested), PERRL, accommodation normal, EOM intact bilaterally, no nystagmus, facial strength normal, tongue midline, gag reflex normal (not tested ), able to rotate head bilaterally and able to elevate shoulders bilaterally (with weakness to both ) Speech: speech normal Gait: other (weakness- right sided limp - unsteady ) Sensory Exam: no sensory deficits noted Other: -bilateral lower ext weakness right > left- per pt and dtr this is not new Extrem General: normal to inspection and full ROM Psych Appearance: grossly normal Mental Status: mental status grossly normal Attitude: cooperative Thought Process: normal Thought Content: normal Judgment: judgment good Coding Level of Care Code Off vis,new,level 3 Diagnoses Multiple sclerosis exacerbation G35 Assessment and Plan Assessment and Plan (1) Multiple sclerosis exacerbation: Status: Acute Plan: -discussed not normally something that should be seen in urgent care -needs to reach out to neurologist and Sunday to discuss further and get sooner appt -if sx change or worsen to ED or call 911 -falls precautions Please follow up with your Primary Care Physician for ongoing chronic problems. If symptoms change or worsen, please present to Emergency Room for further evaluation 1. See visit diagnoses, disposition, and orders. 2. Reviewed and updated medication list; Discussed probable diagnosis, test results if available in office today and management options with patient/guardian: agreed to the medical plan above 3. Education provided regarding visit today, see after visit summary. Instruction provided in the use of fluids, vaporizer, acetaminophen, and/or other OTC medication for symptom control. Explained use of antib (more content not included)... Normal [facility] Anion gap in Serum or Plasma Ordered By: Gladis Ayala on 05-01-2025 Anion gap [Moles/Vol] 11 mmol/L - [facility] BUN/creatinine ratioOrdered By: Gladis Ayala on 05-01-2025 Urea nitrogen/Creatinine [Mass ratio] 19.2 mg/mg - [facility] Basic Metabolic Profile (BMP )on 05-01-2025 BUN/CRE 19.2 RATIO Normal - [facility] Comment on above: Performed By: #### L 500.2500, L100.0500 #### [facility] [address] [place], [address] Calcium [Mass/Vol] 9.7 mg/dL Normal 7.6-11.0 [facility] Comment on above: Performed By: #### L 500.2500, L100.0500 #### [facility] [address] [place], [address] Chloride [Moles/Vol] 106 mmol/L Normal 98-108 [facility] Comment on above: Performed By: #### L 500.2500, L100.0500 #### [facility] [address] [place], [address] CO2 [Moles/Vol] 26.2 mmol/L Normal 21.0-32.0 [facility] Comment on above: Performed By: #### L 500.2500, L100.0500 #### [facility] [address] [place], [address] Creatinine [Mass/Vol] 0.92 mg/dL Normal 0.70-1.20 [facility] Comment on above: Performed By: #### L 500.2500, L100.0500 #### [facility] [address] [place], [address] GAP 11 Normal 5-15 [facility] Comment on above: Performed By: #### L 500.2500, L100.0500 #### [facility] [address] [place], [address] GFR/1.73 sq M.predicted among non-blacks MDRD (S/P/Bld) [Vol rate/Area] 73 mL/min/{1.73_m2} Normal >60 [facility] Comment on above: Result Comment: mL/m in/1.73m2 CKD-EPI Creatinine Equation (2020) Performed By: #### L 500.2500, L100.0500 #### [facility] [address] [place], [address] Glucose [Mass/Vol] 118 mg/dL High 70-99 [facility] Comment on above: Performed By: #### L 500.2500, L100.0500 #### [facility] [address] [place], [address] Potassium [Moles/Vol] 3.9 mmol/L Normal 3.3-5.1 [facility] Comment on above: Performed By: #### L 500.2500, L100.0500 #### [facility] [address] [place], [address] Sodium [Moles/Vol] 143 mmol/L Normal 133-145 [facility] Comment on above: Performed By: #### L 500.2500, L100.0500 #### [facility] [address] [place], [address] Urea nitrogen [Mass/Vol] 18 mg/dL Normal 4-19 [facility] Comment on above: Performed By: #### L 500.2500, L100.0500 #### [facility] [address] [place], [address] CBC-Complete Blood Cnt No Di ffon 05-01-2025 Erythrocyte distribution width (RBC) [Ratio] 12.0 % Normal 11.6-14.6 [facility] Comment on above: Performed By: #### L 500.2500, L100.0500 #### [facility] [address] [place], [address] Hematocrit (Bld) [Volume fraction] 39.7 % Normal 37-47 [facility] Comment on above: Performed By: #### L 500.2500, L100.0500 #### [facility] [address] [place], [address] Hemoglobin (Bld) [Mass/Vol] 13.6 g/dL Normal 12.0-15.0 [facility] Comment on above: Performed By: #### L 500.2500, L100.0500 #### [facility] [address] [place], [address] MCH (RBC) [Entitic mass] 32.2 pg High 27.0-32.0 [facility] Comment on above: Performed By: #### L 500.2500, L100.0500 #### [facility] [address] [place], [address] MCHC (RBC) [Mass/Vol] 34.3 g/dL Normal 32-36 [facility] Comment on above: Performed By: #### L 500.2500, L100.0500 #### [facility] [address] [place], [address] MCV (RBC) [Entitic vol] 94.1 fL Normal 81-99 [facility] Comment on above: Performed By: #### L 500.2500, L100.0500 #### [facility] [address] [place], [address] Platelet mean volume (Bld) [Entitic vol] 12.1 fL High 6.2-12.0 [facility] Comment on above: Performed By: #### L 500.2500, L100.0500 #### [facility] [address] [place], [address] Platelets (Bld) [#/Vol] 247 10*3/uL Normal 150-450 [facility] Comment on above: Performed By: #### L 500.2500, L100.0500 #### [facility] [address] [place], [address] RBC (Bld) [#/Vol] 4.22 10*6/uL Normal 4.2-5.4 [facility] Comment on above: Performed By: #### L 500.2500, L100.0500 #### [facility] [address] [place], [address] RDW SD 41.3 fl Normal 35.1-43.9 [facility] Comment on above: Performed By: #### L 500.2500, L100.0500 #### [facility] [address] [place], [address] WBC (Bld) [#/Vol] 7.7 10*3/uL Normal 4.4-11.0 [facility] Comment on above: Performed By: #### L 500.2500, L100.0500 #### [facility] [address] [place], [address] Carbon dioxide, total [Moles /volume] in Central venous bloodOrdered By: Gladis Ayala on 05-01-2025 CO2 [Moles/Vol] 26.2 mmol/L 21.0-32.0 [facility] Chloride assayOrdered By: Geovanni Ayala on 05-01-2025 Chloride [Moles/Vol] 106 mmol/L 98-108 [facility] Erythrocyte distribution wid th ratioOrdered By: Gladis Ayala on 05-01-2025 Erythrocyte distribution width (RBC) [Ratio] 12.0 % 11.6-14.6 [facility] Erythrocyte distribution wid th standard deviationOrdered By: Gladis Ayala on 05-01-2025 Erythrocyte distribution width (RBC) [Ratio] 41.3 fl 35.1-43.9 [facility] Glomerular filtration rate ( GFR) estimation/1.73 sq m using serum, plasma, or whole bOrdered By: Gladis Ayala on 05-01-2025 GFR/1.73 sq M.predicted among non-blacks MDRD (S/P/Bld) [Vol rate/Area] 73 mL/min/{1.73_m2} >60 [facility] Comment on above: mL/min/1.73m2 CKD-EP I Creatinine Equation (2020) Hematocrit Auto (Bld) [Volum e fraction]Ordered By: Gladis Ayala on 05-01-2025 Hematocrit (Bld) [Volume fraction] 39.7 % 37-47 [facility] Hemoglobin measurementOrdere d By: Gladis Ayala on 05-01-2025 Hemoglobin (Bld) [Mass/Vol] 13.6 g/dL 12.0-15.0 [facility] MCV (mean corpuscular volume ) determinationOrdered By: Gladis Ayala 05-01-2025 MCV (RBC) [Entitic vol] 94.1 fL 81-99 [facility] Mean corpuscular hemoglobin (MCH) determinationOrdered By: Gladis Ayala on 05-01-2025 MCH (RBC) [Entitic mass] 32.2 pg High 27.0-32.0 [facility] Mean corpuscular hemoglobin concentration (MCHC) determinationOrdered By: Gladis Ayala on 05-01-2025 MCHC (RBC) [Mass/Vol] 34.3 g/dL 32-36 [facility] Mean platelet volume determi nationOrdered By: Gladis Ayala on 05-01-2025 Platelet mean volume (Bld) [Entitic vol] 12.1 fL High 6.2-12.0 [facility] Platelet countOrdered By: Geovanni Ayala on 05-01-2025 Platelets (Bld) [#/Vol] 247 10*3/uL 150-450 [facility] Potassium measurement (mass/ volume)Ordered By: Gladis Ayala on 05-01-2025 Potassium (Unsp spec) [Mass/Vol] 3.9 mmol/L 3.3-5.1 [facility] RBC Auto (Bld) [#/Vol]Ordere d By: Gladis Ayala on 05-01-2025 RBC (Bld) [#/Vol] 4.22 10*6/uL 4.2-5.4 [facility] Serum creatinine measurement (mass/volume)Ordered By: Gladis Ayala on 05-01-2025 Creatinine [Mass/Vol] 0.92 mg/dL 0.70-1.20 [facility] Serum glucose measurement (m ass/volume)Ordered By: Gladis Ayala on 05-01-2025 Glucose [Mass/Vol] 118 mg/dL High 70-99 [facility] Serum or plasma calcium candis urement (mass/volume)Ordered By: Gladis Ayala on 05-01-2025 Calcium [Mass/Vol] 9.7 mg/dL 7.6-11.0 [facility] Serum or plasma urea nitroge n measurement (mass/volume)Ordered By: Gladis Ayala on 05-01-2025 Urea nitrogen [Mass/Vol] 18 mg/dL 4-19 [facility] Sodium levelOrdered By: Hector Ayala on 05-01-2025 Sodium [Moles/Vol] 143 mmol/L 133-145 [facility] White blood cell (WBC) count Ordered By: Gladis Ayala on 05-01-2025 WBC (Bld) [#/Vol] 7.7 10*3/uL 4.4-11.0 [facility] Immunoglobulin Aon 4 IMMUNOGLOB A QN 117 mg/dL Normal 87-352 [facility] Comment on above: Order Comment: N Performed By: #### L 100.0100, L500.4050, L3200.1300, L3200.1500, L3200.1400 #### [facility] [address] [place], [address] Immunoglobulin Ry 4 IMMUNOGLOB G QN 1125 mg/dL Normal 586-1602 [facility] Comment on above: Order Comment: N Performed By: #### L 100.0100, L500.4050, L3200.1300, L3200.1500, L3200.1400 #### [facility] [address] [place], [address] Immunoglobulin Mon 4 IMMUNOGLOB M QN 39 mg/dL Normal 26-217 [facility] Comment on above: Order Comment: N Result Comment: Perf ormed at: [facility] [address] [id number] Break And Load Operator: Johnathon Corral PhD, Phone: [phone] Performed By: #### L 100.0100, L500.4050, L3200.1300, L3200.1500, L3200.1400 #### [facility] [address] [place], [address] CBC W/Diff, Automatedon 10-27 Absolute Lymph 1.09 X10 3/uL Normal 0.83-4.51 [facility] Comment on above: Performed By: #### L 100.0100, L500.4050, L3200.1300, L3200.1500, L3200.1400 #### [facility] [address] [place], [address] Absolute Neut 1.8 X10 3/uL Low 2.0-7.7 [facility] Comment on above: Performed By: #### L 100.0100, L500.4050, L3200.1300, L3200.1500, L3200.1400 #### [facility] [address] [place], [address] Basophils/100 WBC (Bld) 1.2 % High 0-1 [facility] Comment on above: Performed By: #### L 100.0100, L500.4050, L3200.1300, L3200.1500, L3200.1400 #### [facility] [address] [place], [address] Eosinophils/100 WBC (Bld) 1.8 % Normal 0-5 [facility] Comment on above: Performed By: #### L 100.0100, L500.4050, L3200.1300, L3200.1500, L3200.1400 #### [facility] [address] [place], [address] Erythrocyte distribution width (RBC) [Ratio] 12.0 % Normal 11.6-14.6 [facility] Comment on above: Performed By: #### L 100.0100, L500.4050, L3200.1300, L3200.1500, L3200.1400 #### [facility] [address] [facility] [place] [address] Hematocrit (Bld) [Volume fraction] 40.1 % Normal 37-47 [facility] Comment on above: Performed By: #### L 100.0100, L500.4050, L3200.1300, L3200.1500, L3200.1400 #### [facility] [address] [facility] [facility] [place], [address] Hemoglobin (Bld) [Mass/Vol] 13.1 g/dL Normal 12.0-15.0 [facility] Comment on above: Performed By: #### L 100.0100, L500.4050, L3200.1300, L3200.1500, L3200.1400 #### [facility] [address] [place] [place], [address] IG% 0.000 Normal 0.0-0.9 [facility] Comment on above: Result Comment: IG% - Immature Granulocytes (promyelocytes, myelocytes and metamyelocytes) > 1% indicates that a LEFT SHIFT is Present. Performed By: #### L 100.0100, L500.4050, L3200.1300, L3200.1500, L3200.1400 #### [facility] [address] [place], [address] Lymphocytes/100 WBC (Bld) 33.3 % Normal 19-41 [facility] Comment on above: Performed By: #### L 100.0100, L500.4050, L3200.1300, L3200.1500, L3200.1400 #### [facility] [address] [place], [address] MCH (RBC) [Entitic mass] 31.1 pg Normal 27.0-32.0 [facility] Comment on above: Performed By: #### L 100.0100, L500.4050, L3200.1300, L3200.1500, L3200.1400 #### [facility] [address] [place], [address] MCHC (RBC) [Mass/Vol] 32.7 g/dL Normal 32-36 [facility] Comment on above: Performed By: #### L 100.0100, L500.4050, L3200.1300, L3200.1500, L3200.1400 #### [facility] [address] [place], [address] MCV (RBC) [Entitic vol] 95.2 fL Normal 81-99 [facility] Comment on above: Performed By: #### L 100.0100, L500.4050, L3200.1300, L3200.1500, L3200.1400 #### [facility] [address] [place], [address] Monocytes/100 WBC (Bld) 8.3 % Normal 0-10 [facility] Comment on above: Performed By: #### L 100.0100, L500.4050, L3200.1300, L3200.1500, L3200.1400 #### [facility] [address] [place], [address] Neutrophils/100 WBC (Bld) 55.4 % Normal 47-70 [facility] Comment on above: Performed By: #### L 100.0100, L500.4050, L3200.1300, L3200.1500, L3200.1400 #### [facility] [address] [place], [address] Nucleated RBC (Bld) [#/Vol] 0 10*3/uL Normal 0-5 [facility] Comment on above: Performed By: #### L 100.0100, L500.4050, L3200.1300, L3200.1500, L3200.1400 #### [facility] [address] [place], [address] Platelet mean volume (Bld) [Entitic vol] 11.8 fL Normal 6.2-12.0 [facility] Comment on above: Performed By: #### L 100.0100, L500.4050, L3200.1300, L3200.1500, L3200.1400 #### [facility] [address] [place], [address] Platelets (Bld) [#/Vol] 190 10*3/uL Normal 150-450 [facility] Comment on above: Performed By: #### L 100.0100, L500.4050, L3200.1300, L3200.1500, L3200.1400 #### [facility] [address] [place], [address] RBC (Bld) [#/Vol] 4.21 10*6/uL Normal 4.2-5.4 [facility] Comment on above: Performed By: #### L 100.0100, L500.4050, L3200.1300, L3200.1500, L3200.1400 #### [facility] [address] [place], [address] RDW SD 42.2 fl Normal 35.1-43.9 [facility] Comment on above: Performed By: #### L 100.0100, L500.4050, L3200.1300, L3200.1500, L3200.1400 #### [facility] [address] [place], [address] WBC (Bld) [#/Vol] 3.3 10*3/uL Low 4.4-11.0 [facility] Comment on above: Performed By: #### L 100.0100, L500.4050, L3200.1300, L3200.1500, L3200.1400 #### [facility] [address] [place], [address] Comprehensive Metabolic Prof ilon 11-17-2024 Albumin [Mass/Vol] 4.1 g/dL Normal 3.2-5.0 [facility] Comment on above: Performed By: #### L 100.0100, L500.4050, L3200.1300, L3200.1500, L3200.1400 #### [facility] [address] [place], [address] Albumin/Globulin [Mass ratio] 1.3 {ratio} Normal 0.9-2.4 [facility] Comment on above: Performed By: #### L 100.0100, L500.4050, L3200.1300, L3200.1500, L3200.1400 #### [facility] [address] [place], [address] ALK P 45 U/L Normal 45-117 [facility] Comment on above: Performed By: #### L 100.0100, L500.4050, L3200.1300, L3200.1500, L3200.1400 #### [facility] [address] [place], [address] ALT [Catalytic activity/Vol] 19 U/L Normal 13-56 [facility] Comment on above: Performed By: #### L 100.0100, L500.4050, L3200.1300, L3200.1500, L3200.1400 #### [facility] [address] [place], [address] AST [Catalytic activity/Vol] 16 U/L Normal 15-37 [facility] Comment on above: Performed By: #### L 100.0100, L500.4050, L3200.1300, L3200.1500, L3200.1400 #### [facility] [address] [place], [address] Bilirubin [Mass/Vol] 0.90 mg/dL Normal 0.20-1.00 [facility] Comment on above: Result Comment: For patients on eltrombopag therapy, use of Dimension [place] TBIL is not recommended. Performed By: #### L 100.0100, L500.4050, L3200.1300, L3200.1500, L3200.1400 #### [facility] [address] [place], [address] BUN/CRE 29.5 RATIO High 10-20 [facility] Comment on above: Performed By: #### L 100.0100, L500.4050, L3200.1300, L3200.1500, L3200.1400 #### [facility] [address] [place], [address] CA,Total 9.1 mg/dL Normal 8.5-10.1 [facility] Comment on above: Performed By: #### L 100.0100, L500.4050, L3200.1300, L3200.1500, L3200.1400 #### [facility] [address] [place], [address] Chloride [Moles/Vol] 108 mmol/L High 98-107 [facility] Comment on above: Performed By: #### L 100.0100, L500.4050, L3200.1300, L3200.1500, L3200.1400 #### [facility] [address] [place], [address] CO2 [Moles/Vol] 30.0 mmol/L Normal 21.0-32.0 [facility] Comment on above: Performed By: #### L 100.0100, L500.4050, L3200.1300, L3200.1500, L3200.1400 #### [facility] [address] [place], [address] Creatinine [Mass/Vol] 0.71 mg/dL Normal 0.55-1.02 [facility] Comment on above: Result Comment: The validity of the calculated GFR GFRAA in patients over 70 years has not been determined. Clinical correlation is essential. Performed By: #### L 100.0100, L500.4050, L3200.1300, L3200.1500, L3200.1400 #### [facility] [address] [place], [address] EST GFR - AA 109 mL/min Normal >60 [facility] Comment on above: Result Comment: Afri can [place] GFR Calc Performed By: #### L 100.0100, L500.4050, L3200.1300, L3200.1500, L3200.1400 #### [facility] [address] [place], [address] GAP 4 Low 5-15 [facility] Comment on above: Performed By: #### L 100.0100, L500.4050, L3200.1300, L3200.1500, L3200.1400 #### [facility] [address] [place], [address] GFR/1.73 sq M.predicted among non-blacks MDRD (S/P/Bld) [Vol rate/Area] 90 mL/min/{1.73_m2} Normal >60 [facility] Comment on above: Result Comment: Non- GFR Calc Performed By: #### L 100.0100, L500.4050, L3200.1300, L3200.1500, L3200.1400 #### [facility] [address] [place], [address] Globulin (S) [Mass/Vol] 3.1 g/dL Normal 2.2-4.2 [facility] Comment on above: Performed By: #### L 100.0100, L500.4050, L3200.1300, L3200.1500, L3200.1400 #### [facility] [address] [place], [address] Glucose [Mass/Vol] 97 mg/dL Normal 74-106 [facility] Comment on above: Performed By: #### L 100.0100, L500.4050, L3200.1300, L3200.1500, L3200.1400 #### [facility] [address] [place], [address] Potassium [Moles/Vol] 3.3 mmol/L Low 3.5-5.1 [facility] Comment on above: Performed By: #### L 100.0100, L500.4050, L3200.1300, L3200.1500, L3200.1400 #### [facility] [address] [place], [address] Sodium [Moles/Vol] 142 mmol/L Normal 136-145 [facility] Comment on above: Performed By: #### L 100.0100, L500.4050, L3200.1300, L3200.1500, L3200.1400 #### [facility] [address] [place], [address] T PROT 7.2 g/dL Normal 6.4-8.2 [facility] Comment on above: Performed By: #### L 100.0100, L500.4050, L3200.1300, L3200.1500, L3200.1400 #### [facility] [address] [place], [address] Urea nitrogen [Mass/Vol] 21 mg/dL High 7-18 [facility] Comment on above: Performed By: #### L 100.0100, L500.4050, L3200.1300, L3200.1500, L3200.1400 #### [facility] [address] [place], [address] CEFUROXIME:SUSC:PT:ISOLATE:O RDQN:REBECCAon 08-08-2024 Cefuroxime REBECCA [Susc] >100,000 cfu/ml Escherichia coli [facility] Work Phone: Cefuroxime REBECCA [Susc]on 07-27 Escherichia coli Escherichia coli [facility] Work Phone: Serum or plasma IgG measurem ent (mass/volume)Ordered By: Jose A Sutton on 11-12-2023 IgG [Mass/Vol] 1055 mg/dL 586-1602 [facility] Serum or plasma IgM measurem ent (mass/volume)Ordered By: Jose A Sutton on 11-12-2023 IgM [Mass/Vol] 37 mg/dL 26-217 [facility] Comment on above: Performed at: [address] [id number] Director: Johnathon Corral PhD, Phone: [phone] LABORATORYOrdered By: Tomi Landaverde on 10-17-2023 FLUAV RNA MILO+probe Ql (Upper resp) Negative 1 (10/17/23 10:05 AM) Normal Negative AO Auto Urine SS Comment on above: Interpretive Data: P ositive Results: Positive Flu A/B or RSV for by PCR. Positive test results do not rule out bacterial infection or co-infection with other pathogens. Test results should be interpreted in conjunction with other laboratory and clinical data. Negative Results: Negative for by PCR. Negative test results do not preclude influenza virus or RSV infection and should not be used as the sole basis for diagnosis, treatment, or other management decisions. There is a risk of false negative RSV results when at low concentration and in the presence of co-infection with high concentration of influenza A. Invalid Results: An Invalid result (INV) was obtained. The test was repeated with similar results. REPEAT COLLECTION AND TESTING IS RECOMMENDED. The [employer] Flu A/B & RSV Assay is a real-time polymerase chain reaction (PCR) based qualitative in vitro diagnostic test for the direct detection and differentiation of influenza A virus, influenza B virus, and respiratory syncytial virus (RSV) nucleic acid in nasopharyngeal swab (ELECTRICAL CONTINUITY TESTER) specimens from patients with signs and symptoms of respiratory infection in conjunction with clinical and laboratory findings. The test is intended for use as an aid in the differential diagnosis of influenza A virus, influenza B virus, and RSV in humans and is not intended to detect influenza C. FLUBV RNA MILO+probe Ql (Upper resp) Negative 2 (10/17/23 10:05 AM) Normal Negative AO Auto Urine SS Comment on above: Interpretive Data: P ositive Results: Positive Flu A/B or RSV for by PCR. Positive test results do not rule out bacterial infection or co-infection with other pathogens. Test results should be interpreted in conjunction with other laboratory and clinical data. Negative Results: Negative for by PCR. Negative test results do not preclude influenza virus or RSV infection and should not be used as the sole basis for diagnosis, treatment, or other management decisions. There is a risk of false negative RSV results when at low concentration and in the presence of co-infection with high concentration of influenza A. Invalid Results: An Invalid result (INV) was obtained. The test was repeated with similar results. REPEAT COLLECTION AND TESTING IS RECOMMENDED. The [employer] Flu A/B & RSV Assay is a real-time polymerase chain reaction (PCR) based qualitative in vitro diagnostic test for the direct detection and differentiation of influenza A virus, influenza B virus, and respiratory syncytial virus (RSV) nucleic acid in nasopharyngeal swab (ELECTRICAL CONTINUITY TESTER) specimens from patients with signs and symptoms of respiratory infection in conjunction with clinical and laboratory findings. The test is intended for use as an aid in the differential diagnosis of influenza A virus, influenza B virus, and RSV in humans and is not intended to detect influenza C. RSV RNA MILO+probe Ql (Upper resp) Negative 3 (10/17/23 10:05 AM) Normal Negative AO Auto Urine SS Comment on above: Interpretive Data: P ositive Results: Positive Flu A/B or RSV for by PCR. Positive test results do not rule out bacterial infection or co-infection with other pathogens. Test results should be interpreted in conjunction with other laboratory and clinical data. Negative Results: Negative for by PCR. Negative test results do not preclude influenza virus or RSV infection and should not be used as the sole basis for diagnosis, treatment, or other management decisions. There is a risk of false negative RSV results when at low concentration and in the presence of co-infection with high concentration of influenza A. Invalid Results: An Invalid result (INV) was obtained. The test was repeated with similar results. REPEAT COLLECTION AND TESTING IS RECOMMENDED. The [employer] Flu A/B & RSV Assay is a real-time polymerase chain reaction (PCR) based qualitative in vitro diagnostic test for the direct detection and differentiation of influenza A virus, influenza B virus, and respiratory syncytial virus (RSV) nucleic acid in nasopharyngeal swab (ELECTRICAL CONTINUITY TESTER) specimens from patients with signs and symptoms of respiratory infection in conjunction with clinical and laboratory findings. The test is intended for use as an aid in the differential diagnosis of influenza A virus, influenza B virus, and RSV in humans and is not intended to detect influenza C. SARS-CoV-2 (COVID-19) RNA MILO+probe Ql (Resp) Negative results do not preclude SARS-CoV-2 infection and should not be used as the sole basis for patient management decisions. Negative results must be combined with clinical observations, patient history, and epidemiological information.There is a risk of false negative values resulting from improperly collected, transported, or handled specimens.There is a risk of false negative values due to the presence of sequence variants in the pathogen targets of the assay, procedural errors, amplification inhibitors in specimens, or inadequate numbers of organisms for amplification.[email or web address] SARS-CoV-2 Assay is a Real-Time reverse-transcriptase polymerase chain reaction (RT-PCR) based qualitative in vitro diagnostic test intended for the qualitative detection of nucleic acid from the SARS-CoV-2 in nasopharyngeal swab specimens collected from individuals suspected of COVID-19 by their healthcare provider. Testing is limited to laboratories certified under the Clinical Laboratory Improvement Amendments of 1988 (CLIA), 42 U.S.C. 263a, to perform moderate and high complexity tests. Invalid Interpretation Code AO Auto Urine SS Absolute lymphocyte countOrd ered By: Dr. Sutton on 05-09-2023 Lymphocytes Auto (Unsp spec) [#/Vol] 1.36 10*3/uL 0.83-4.51 [facility] Basophil percentageOrdered B y: Dr. Sutton on 05-09-2023 Basophils/100 WBC (Bld) 0.8 % 0-1 [facility] Bilirubin [Mass/Vol] 0.60 mg/dL 0.20-1.00 [facility] Comment on above: For patients on eltr ombopag therapy, use of Dimension [place] TBIL is not recommended. Chloride [Moles/Vol] 111 mmol/L 98-107 [facility] Eosinophils/100 WBC (Bld) 1.1 % 0-5 [facility] Glucose [Mass/Vol] 88 mg/dL 74-106 [facility] Neutrophils (Bld) [#/Vol] 2.0 10*3/uL 2.0-7.7 [facility] Neutrophils/100 WBC (Bld) 53.6 % 47-70 [facility] Potassium [Moles/Vol] 3.7 mmol/L 3.5-5.1 [facility] Protein [Mass/Vol] 7.1 g/dL 6.4-8.2 [facility] Sodium [Moles/Vol] 144 mmol/L 136-145 [facility] WBC (Bld) [#/Vol] 3.7 10*3/uL 4.4-11.0 [facility] Blood erythrocytes count (nu mber/volume)Ordered By: Dr. Sutton on 05-09-2023 RBC (Bld) [#/Vol] 4.36 10*6/uL 4.2-5.4 [facility] Blood hemoglobin measurement (mass/volume)Ordered By: Dr. Sutton on 05-09-2023 Hemoglobin (Bld) [Mass/Vol] 13.7 g/dL 12.0-15.0 [facility] Blood lymphocytes/100 leukoc ytesOrdered By: Dr. Sutton on 05-09-2023 Lymphocytes/100 WBC (Bld) 36.7 % 19-41 [facility] Blood monocytes/100 leukocyt esOrdered By: Dr. Sutton on 05-09-2023 Monocytes/100 WBC (Bld) 7.5 % 0-10 [facility] Blood platelet mean volumeOr dered By: Dr. Sutton on 05-09-2023 Platelet mean volume (Bld) [Entitic vol] 11.9 fL 6.2-12.0 [facility] Determination of erythrocyte mean corpuscular volume (MCV)Ordered By: Dr. Sutton on 05-09-2023 MCV (RBC) [Entitic vol] 96.3 fL 81-99 [facility] Hematocrit Auto (Bld) [Volum e fraction]Ordered By: Dr. Sutton on 05-09-2023 Hematocrit (Bld) [Volume fraction] 42.0 % 37-47 [facility] - Chemistry and C hemistry - challengeOrdered By: Dr. Sutton on 05-09-2023 ALP [Catalytic activity/Vol] 46 U/L 45-117 [facility] ALT [Catalytic activity/Vol] 19 U/L 13-56 [facility] CO2 [Moles/Vol] 30.0 mmol/L 21.0-32.0 [facility] Globulin (S) [Mass/Vol] 3.2 g/dL 2.2-4.2 [facility] Urea nitrogen/Creatinine [Mass ratio] 20.0 mg/mg 10-20 [facility] Laboratory - Hematology and Cell countsOrdered By: Dr. Sutton on 05-09-2023 Erythrocyte distribution width (RBC) [Entitic vol] 43.2 fL 35.1-43.9 [facility] Erythrocyte distribution width (RBC) [Ratio] 12.1 % 11.6-14.6 [facility] Immature granulocytes/100 WBC (Bld) 0.300 % 0.0-0.9 [facility] Comment on above: IG% - Immature Granu locytes (promyelocytes, myelocytes and metamyelocytes) > 1% indicates that a LEFT SHIFT is Present. MCH (RBC) [Entitic mass] 31.4 pg 27.0-32.0 [facility] Nucleated RBC/100 WBC (Bld) [Ratio] 0 % 0-5 [facility] MCHC Auto (RBC) [Mass/Vol]Or dered By: Dr. Sutton on 05-09-2023 MCHC (RBC) [Mass/Vol] 32.6 g/dL 32-36 [facility] No Panel InformationOrdered By: Dr. Sutton on 05-09-2023 Estimated GFR (MDRD) Amer 95 mL/min >60 [facility] Comment on above: GFR Calc Estimated GFR (MDRD) Non-Af Amer 79 mL/min >60 [facility] Comment on above: Non- GFR Calc Platelets bldOrdered By: Dr. Sutton on 05-09-2023 Platelets (Bld) [#/Vol] 179 10*3/uL 150-450 [facility] Serum or plasma IgA measurem ent (mass/volume)Ordered By: Dr. Sutton on 05-09-2023 IgA [Mass/Vol] 129 mg/dL 87-352 [facility] Serum or plasma IgG measurem ent (mass/volume)Ordered By: Dr. Sutton on 05-09-2023 IgG [Mass/Vol] 1142 mg/dL [phone] [facility] Serum or plasma IgM measurem ent (mass/volume)Ordered By: Dr. Sutton on 05-09-2023 IgM [Mass/Vol] 41 mg/dL 26-217 [facility] Comment on above: Performed at: [employer] [address] [id number] Director: Johnathon Corral PhD, Phone: [phone] Serum or plasma albumin candis urement (mass/volume)Ordered By: Dr. Sutton on 05-09-2023 Albumin [Mass/Vol] 3.9 g/dL 3.2-5.0 [facility] Serum or plasma albumin/glob ulin mass ratioOrdered By: Dr. Sutton on 05-09-2023 Albumin/Globulin [Mass ratio] 1.2 {ratio} 0.9-2.4 [facility] Serum or plasma calcium candis urement (mass/volume)Ordered By: Dr. Sutton on 05-09-2023 Calcium [Mass/Vol] 8.8 mg/dL 8.5-10.1 [facility] Serum or plasma creatinine m easurement (mass/volume)Ordered By: Dr. Sutton on 05-09-2023 Creatinine [Mass/Vol] 0.80 mg/dL 0.55-1.02 [facility] Comment on above: The validity of the calculated GFR & GFRAA in patients over 70 years has not been determined. Clinical correlation is essential. Serum or plasma urea nitroge n measurement (mass/volume)Ordered By: Dr. Sutton on 05-09-2023 Urea nitrogen [Mass/Vol] 16 mg/dL 7-18 [facility] Thin prep Papanicolaou smear with manual screeningOrdered By: Dr. Sutton on 05-09-2023 Thin prep Papanicolaou smear with manual screening 19 U/L 15-37 [facility] Thin prep Papanicolaou smear with manual screening 3 5-15 [facility] Absolute lymphocyte countOrd ered By: Dr. Sutton on 10-30-2022 Lymphocytes Auto (Unsp spec) [#/Vol] 1.50 10*3/uL 0.83-4.51 [facility] Basophil percentageOrdered B y: Dr. Sutton on 10-30-2022 Basophils/100 WBC (Bld) 0.8 % 0-1 [facility] Bilirubin [Mass/Vol] 0.50 mg/dL 0.20-1.00 [facility] Comment on above: For patients on eltr ombopag therapy, use of Dimension [place] TBIL is not recommended. Chloride [Moles/Vol] 112 mmol/L 98-107 [facility] Eosinophils/100 WBC (Bld) 0.8 % 0-5 [facility] Glucose [Mass/Vol] 126 mg/dL 74-106 [facility] Comment on above: Fasting Glucose resu lt greater than or equal to 126 mg/dL suggests DIABETES MELLITUS per A.D.A. criteria. Neutrophils (Bld) [#/Vol] 3.0 10*3/uL 2.0-7.7 [facility] Neutrophils/100 WBC (Bld) 61.1 % 47-70 [facility] Potassium [Moles/Vol] 3.6 mmol/L 3.5-5.1 [facility] Protein [Mass/Vol] 7.2 g/dL 6.4-8.2 [facility] Sodium [Moles/Vol] 144 mmol/L 136-145 [facility] WBC (Bld) [#/Vol] 5.0 10*3/uL 4.4-11.0 [facility] Blood erythrocytes count (nu mber/volume)Ordered By: Dr. Sutton on 10-30-2022 RBC (Bld) [#/Vol] 4.20 10*6/uL 4.2-5.4 [facility] Blood hemoglobin measurement (mass/volume)Ordered By: Dr. Sutton on 10-30-2022 Hemoglobin (Bld) [Mass/Vol] 13.2 g/dL 12.0-15.0 [facility] Blood lymphocytes/100 leukoc ytesOrdered By: Dr. Sutton on 10-30-2022 Lymphocytes/100 WBC (Bld) 30.2 % 19-41 [facility] Blood monocytes/100 leukocyt esOrdered By: Dr. Sutton on 10-30-2022 Monocytes/100 WBC (Bld) 6.9 % 0-10 [facility] Blood platelet mean volumeOr dered By: Dr. Sutton on 10-30-2022 Platelet mean volume (Bld) [Entitic vol] 12.2 fL 6.2-12.0 [facility] Determination of erythrocyte mean corpuscular volume (MCV)Ordered By: Dr. Sutton on 10-30-2022 MCV (RBC) [Entitic vol] 95.5 fL 81-99 [facility] Hematocrit Auto (Bld) [Volum e fraction]Ordered By: Dr. Sutton on 10-30-2022 Hematocrit (Bld) [Volume fraction] 40.1 % 37-47 [facility] Laboratory - Chemistry and C hemistry - challengeOrdered By: Dr. Sutton on 10-30-2022 ALP [Catalytic activity/Vol] 49 U/L 45-117 [facility] ALT [Catalytic activity/Vol] 22 U/L 13-56 [facility] CO2 [Moles/Vol] 29.0 mmol/L 21.0-32.0 [facility] Globulin (S) [Mass/Vol] 3.2 g/dL 2.2-4.2 [facility] Urea nitrogen/Creatinine [Mass ratio] 22.9 mg/mg 10-20 [facility] - Hematology and Cell countsOrdered By: Dr. Sutton on 10-30-2022 Erythrocyte distribution width (RBC) [Entitic vol] 45.3 fL 35.1-43.9 [facility] Erythrocyte distribution width (RBC) [Ratio] 13.1 % 11.6-14.6 [facility] Immature granulocytes/100 WBC (Bld) 0.200 % 0.0-0.9 [facility] Comment on above: IG% - Immature Granu locytes (promyelocytes, myelocytes and metamyelocytes) > 1% indicates that a LEFT SHIFT is Present. MCH (RBC) [Entitic mass] 31.4 pg 27.0-32.0 [facility] Nucleated RBC/100 WBC (Bld) [Ratio] 0 % 0-5 [facility] MCHC Auto (RBC) [Mass/Vol]Or dered By: Dr. Sutton on 10-30-2022 MCHC (RBC) [Mass/Vol] 32.9 g/dL 32-36 [facility] No Panel InformationOrdered By: Dr. Sutton on 10-30-2022 Estimated GFR (MDRD) Amer 104 mL/min >60 [facility] Comment on above: GFR Calc Estimated GFR (MDRD) Non-Af Amer 86 mL/min >60 [facility] Comment on above: Non- GFR Calc Platelets bldOrdered By: Dr. Sutton on 10-30-2022 Platelets (Bld) [#/Vol] 196 10*3/uL 150-450 [facility] Serum or plasma IgA measurem ent (mass/volume)Ordered By: Dr. Sutton on 10-30-2022 IgA [Mass/Vol] 135 mg/dL 87-352 [facility] Serum or plasma IgG measurem ent (mass/volume)Ordered By: Dr. Sutton on 10-30-2022 IgG [Mass/Vol] 1059 mg/dL [phone] [facility] Serum or plasma IgM measurem ent (mass/volume)Ordered By: Dr. Sutton on 10-30-2022 IgM [Mass/Vol] 48 mg/dL 26-217 [facility] Comment on above: Performed at: [address] Director: Johnathon Corral PhD, Phone: [phone] Serum or plasma albumin candis urement (mass/volume)Ordered By: Dr. Sutton on 10-30-2022 Albumin [Mass/Vol] 4.0 g/dL 3.2-5.0 [facility] Serum or plasma albumin/glob ulin mass ratioOrdered By: Dr. Sutton on 10-30-2022 Albumin/Globulin [Mass ratio] 1.2 {ratio} 0.9-2.4 [facility] Serum or plasma calcium candis urement (mass/volume)Ordered By: Dr. Sutton on 10-30-2022 Calcium [Mass/Vol] 9.2 mg/dL 8.5-10.1 [facility] Serum or plasma creatinine m easurement (mass/volume)Ordered By: Dr. Sutton on 10-30-2022 Creatinine [Mass/Vol] 0.74 mg/dL 0.55-1.02 [facility] Comment on above: The validity of the calculated GFR & GFRAA in patients over 70 years has not been determined. Clinical correlation is essential. Serum or plasma urea nitroge n measurement (mass/volume)Ordered By: Dr. Sutton on 10-30-2022 Urea nitrogen [Mass/Vol] 17 mg/dL 7-18 [facility] Thin prep Papanicolaou smear with manual screeningOrdered By: Dr. Sutton on 10-30-2022 Thin prep Papanicolaou smear with manual screening 17 U/L 15-37 [facility] Thin prep Papanicolaou smear with manual screening 3 5-15 [facility] Absolute lymphocyte counton 04-28-2022 Lymphocytes Auto (Unsp spec) [#/Vol] 1.18 10*3/uL 0.83-4.51 [facility] Work Phone: Basophil percentageon 2021 Basophils/100 WBC (Bld) 0.2 % 0-1 [facility] Work Phone: Bilirubin [Mass/Vol] 0.40 mg/dL 0.20-1.00 [facility] Work Phone: Comment on above: For patients on eltr ombopag therapy, use of Dimension [place] TBIL is not recommended. Chloride [Moles/Vol] 109 mmol/L 98-107 [facility] Work Phone: [phone] Eosinophils/100 WBC (Bld) 1.0 % 0-5 [facility] Work Phone: Glucose [Mass/Vol] 94 mg/dL 74-106 [facility] Work Phone: Neutrophils (Bld) [#/Vol] 3.4 10*3/uL 2.0-7.7 [facility] Work Phone: Neutrophils/100 WBC (Bld) 65.6 % 47-70 [facility] Work Phone: Potassium [Moles/Vol] 3.5 mmol/L 3.5-5.1 [facility] Work Phone: Protein [Mass/Vol] 7.2 g/dL 6.4-8.2 [facility] Work Phone: [phone] Sodium [Moles/Vol] 140 mmol/L 136-145 [facility] Work Phone: [phone] WBC (Bld) [#/Vol] 5.2 10*3/uL 4.4-11.0 [facility] Work Phone: Blood erythrocytes count (nu mber/volume)on 04-28-2022 RBC (Bld) [#/Vol] 4.26 10*6/uL 4.2-5.4 [facility] Work Phone: Blood hemoglobin measurement (mass/volume)on 04-28-2022 Hemoglobin (Bld) [Mass/Vol] 13.8 g/dL 12.0-15.0 [facility] Work Phone: [phone] Blood lymphocytes/100 leukoc yteson 04-28-2022 Lymphocytes/100 WBC (Bld) 22.9 % 19-41 [facility] Work Phone: Blood monocytes/100 leukocyt eson 04-28-2022 Monocytes/100 WBC (Bld) 10.1 % 0-10 [facility] Work Phone: [phone] Blood platelet mean volumeon 04-28-2022 Platelet mean volume (Bld) [Entitic vol] 12.0 fL 6.2-12.0 [facility] Work Phone: Determination of erythrocyte mean corpuscular volume (MCV)on 04-28-2022 MCV (RBC) [Entitic vol] 96.2 fL 81-99 [facility] Work Phone: Hematocrit Auto (Bld) [Volum e fraction]on 04-28-2022 Hematocrit (Bld) [Volume fraction] 41.0 % 37-47 [facility] Work Phone: Laboratory - Chemistry and C hemistry - challengeon 04-28-2022 ALP [Catalytic activity/Vol] 42 U/L 45-117 [facility] Work Phone: ALT [Catalytic activity/Vol] 24 U/L 13-56 [facility] Work Phone: CO2 [Moles/Vol] 26.0 mmol/L 21.0-32.0 [facility] Work Phone: Globulin (S) [Mass/Vol] 3.3 g/dL 2.2-4.2 [facility] Work Phone: Urea nitrogen/Creatinine [Mass ratio] 46.4 mg/mg 10-20 [facility] Work Phone: Laboratory - Hematology and Cell countson 04-28-2022 Erythrocyte distribution width (RBC) [Entitic vol] 43.7 fL 35.1-43.9 [facility] Work Phone: Erythrocyte distribution width (RBC) [Ratio] 12.3 % 11.6-14.6 [facility] Work Phone: Immature granulocytes/100 WBC (Bld) 0.200 % 0.0-0.9 [facility] Work Phone: Comment on above: IG% - Immature Granu locytes (promyelocytes, myelocytes and metamyelocytes) > 1% indicates that a LEFT SHIFT is Present. MCH (RBC) [Entitic mass] 32.4 pg 27.0-32.0 [facility] Work Phone: Nucleated RBC/100 WBC (Bld) [Ratio] 0 % 0-5 [facility] Work Phone: MCHC Auto (RBC) [Mass/Vol]on 04-28-2022 MCHC (RBC) [Mass/Vol] 33.7 g/dL 32-36 [facility] Work Phone: No Panel Informationon 04-28 Estimated GFR (MDRD) Amer 106 mL/min >60 [facility] Work Phone: Comment on above: GFR Calc Estimated GFR (MDRD) Non-Af Amer 88 mL/min >60 [facility] Work Phone: Comment on above: Non- GFR Calc Platelets bldon 04-28-2022 Platelets (Bld) [#/Vol] 172 10*3/uL 150-450 [facility] Work Phone: Serum or plasma albumin candis urement (mass/volume)on 04-28-2022 Albumin [Mass/Vol] 3.9 g/dL 3.2-5.0 [facility] Work Phone: Serum or plasma albumin/glob ulin mass ratioon 04-28-2022 Albumin/Globulin [Mass ratio] 1.2 {ratio} 0.9-2.4 [facility] Work Phone: Serum or plasma calcium candis urement (mass/volume)on 04-28-2022 Calcium [Mass/Vol] 8.9 mg/dL 8.5-10.1 [facility] Work Phone: Serum or plasma creatinine m easurement (mass/volume)on 04-28-2022 Creatinine [Mass/Vol] 0.73 mg/dL 0.55-1.02 [facility] Work Phone: Comment on above: The validity of the calculated GFR & GFRAA in patients over 70 years has not been determined. Clinical correlation is essential. Serum or plasma urea nitroge n measurement (mass/volume)on 04-28-2022 Urea nitrogen [Mass/Vol] 34 mg/dL 7-18 [facility] Work Phone: Thin prep Papanicolaou smear with manual screeningon 04-28-2022 Thin prep Papanicolaou smear with manual screening 22 U/L 15-37 [facility] Work Phone: Thin prep Papanicolaou smear with manual screening 5 5-15 [facility] Work Phone: PROGRESSon 09-02-2019 PROGRESS HNO ID: [id number] Author: Montez Nicholson Service: ? Author Type: Physician Type: Progress Notes Filed: 09/02/2019 10:52 AM Note Text: Review of CT: Pt as instructed had a CT scan of the Brain at [facility]. She dropped the disc that I reviewed and I saw no residual SDH and the report indicates same. I told Vaishali to call her and let her know. [facility]z [facility] Office Visit ([place] ) JAMEL PARKS ([id number]) 1965 [facility] Date Time Provider Department 08/14/19 2:00 PM MONTEZ NICHOLSON During your visit today, we recorded the following information about you: Pulse Respiration Blood pressure Weight 83/minute 14/minute 90/62 48.1 kg Height 1.676 m Vaishali Garza APRN.[facility] 08/14/2019 2:43 PM Signed NEUROSURGERY FOLLOW UP OFFICE NOTE Dr. Montez Nicholson MD, FACS Date of visit: August 14, 2019 Patient Name: Ms.Melia Parish Parks Date of : 1965 Current Age: [age] year old Sex: female MRN/E# [id number] Last Office Visit: Hospital Follow up 07/29/19 Chief Complaint: Patient presents with: Established Patient: hospital follow up SUBJECTIVE: Presents as a hospital follow-up with imaging (CT Brain) for evaluation of the subdural hematoma. She was seen on 07/29/19 at [facility] after falling off her horse when it ran out of control from being spooked. She was not on anticoagulants but workup in the ED showed a subdural hematoma which was nonsurgical. Patient was discharged home on 08/02/19 and was stable at the time. Since discharge she states she is overall doing well. Denies headache, visual changes, speech deficits, seizure activity, motor or sensory deficits. Presents for image review, evaluation and plan of care. Symptoms: None PREVIOUS CONSERVATIVE TREATMENTS: None PREVIOUS SURGERY: None PAIN EVALUATION 08/14/2019 1407 Pain Level: 1 Pain Location: Head left thumb left thumb Description: Dull;Aching Duration Amount of Time: 2 Duration Units: Weeks Frequency: Intermittent Comments: ? patient fell off horse 07/29/2019. patient fell off horse 07/29/2019. PAST MEDICAL HISTORY Diagnosis Date - Multiple sclerosis (HCC) PAST SURGICAL HISTORY Procedure Laterality Date - TREAT ECTOPIC PREG,NON REMVAL 1995 Ectopic FAMILY HISTORY Problem Relation Age of Onset - Breast Cancer Sister - Arthritis Sister - Heart Father - Hypertension Father ALLERGIES Allergen Reactions - Ampyra [Dalfampridi* Other: See Comments Seizure and stroke. - Penicillins Shortness of Breath Current Outpatient Medications Medication Sig Dispense Refill - acetaminophen (TYLENOL) 325 mg tablet Take 3 tablets by mouth every 6 hours as needed for Pain. 30 tablet 0 - cholecalciferol (VITAMIN D) 1,000 unit tab tablet Take 1,000 Units by mouth once daily. - cyanocobalamin (VITAMIN B-12) 1,000 mcg tab Take 1,000 mcg by mouth once daily. - levETIRAcetam (KEPPRA) 1,000 mg tablet Take 1 tablet by mouth twice daily for 5 days. 9 tablet 0 - cyclobenzaprine (FLEXERIL) 5 mg tablet Take 1 tablet by mouth three times daily as needed for Muscle Spasm for up to 30 doses. (Patient not taking: Reported on 08/14/2019 ) 30 tablet 0 No current facility-administered medications for this visit. REVIEW OF SYSTEMS Review of Systems Constitutional: Negative for chills, diaphoresis (Negative for night sweats.) and fever. HENT: Negative for ear discharge and rhinorrhea. Eyes: Negative for discharge. Respiratory: Negative for cough, shortness of breath and wheezing. Cardiovascular: Negative for chest pain, palpitations and leg swelling. Gastrointestinal: Negative for constipation, diarrhea, nausea and vomiting. Endocrine: Negative for cold intolerance and heat intolerance. Genitourinary: Negative for frequency. Negative for urinary incontinence and urinary retention. Musculoskeletal: Negative for back pain, joint swelling, myalgias and neck pain. Skin: Negative for rash (Negative for hives and skin lesions.). Allergic/Immunologic: Negative for environmental allergies and food allergies. Negative for contact allergy, seasonal allergies. Neurological: Negative for dizziness, seizures, syncope, weakness, light-headedness, numbness (Negative for numbness in extremities.) and headaches. Hematological: Does not bruise/bleed easily. Psychiatric/Behavioral : The patient is not nervous/anxious. Negative for depression. OBJECTIVE: BP 90/62 Pulse 83 Resp 14 Ht 5' 6 (1.68m) Wt 106 lb (48.1kg) SpO2 95% BMI 17.12 kg/(m2). PHYSICAL EXAM: Mental State : Alert, memory function unremarkable. Attention span and concentration Normal for patient's age. Recent and remote memory normal Orientation : Oriented to person, place and time Higher Cortical Function : Intact speech and language. Spontaneous speech and comprehension normal. Fund of knowledge intact for pt level of education. Cranial Nerves : II: No visual field cut no blurring. Makes and sustains eye contact III, IV, : Normal, no double vision or drooping. Pupils equal and reactive to light. Extraocular muscles intact. No nystagmus V: Normal sensation on the face, normal jaw movements VII: No paresis on either side. VIII: No gross hearing deficit IX: Normal palatal movements XI: Good and equal shoulder shrugs XII: Tongue midline, no fasciculation Sensory : Normal sensation upper and lower extremities and trunk to light touch and noxious stimuli. Motor : Normal muscle tone and bulk. No tremor or uncontrollable movements No spasticity. Strength: Upper Extremities : R L Deltoid 5/5 5/5 Biceps 5/5 5/5 Triceps 5/5 5/5 Wrist Ext 5/5 5/5 Wrist Flx 5/5 5/5 Hand Int 5/5 5/5 Lower Extremities : Hip Flexors 5/5 5/5 Hip Extensors 5/5 5/5 Hip Abductors 5/5 5/5 Hip Adductors 5/5 5/5 Quads 5/5 5/5 Ankle dorsiflex 5/5 5/5 Ankle plantars 5/5 5/5 Heel Walking intact intact Toe Walking intact intact Reflexes : Biceps 2+ 2+ Triceps 2+ 2+ Wrist 2+ 2+ Patellar 2+ 2+ Achilles 2+ 2+ Love's Neg Neg Tinel's Neg Neg Cerebellar Function : Normal finger to nose and rapid alternating movements. No ataxia. Negative Romberg. Gait and Station: Antalgic, utilizing an assistive device. Pulmonary: Lungs without cough, audible wheeze. Respirations unlabored. Cardiac: Regular rate and rhythm. No murmer, gallop or rub. IMAGING: No new imaging ASSESSMENT/PLAN: 1. Intracranial hemorrhage (HCC) - ICD9: 432.9, ICD10: I62.9 Patient had a small interhemispheric subdural hematoma following a fall for which neurosurgery was consulted to see her in the hospital. Follow-up scan showed no worsening of the small interhemispheric subdural hematoma and now patient presents to the clinic for a follow-up visit. She reports no headache nausea vomiting or neurologic problems. Her neurological examination is normal today. I recommended a CT scan without contrast enhancement as a follow-up. She had taken a short course of Keppra and she finished that course. She will be scheduled for a scan at a [facility] following which I will see her with the scan and advised her. - CT BRAIN MARCOS Nicholson MD Follow Up: No follow-ups on file. This note was partially generated using [employer] voice recognition system, and there may be some incorrect words, spellings, and punctuation that were not noted in checking the note before saving. Referring Provider: AJAY MCGUIRE [[id number]] Allergies As of Date: 08/14/2019 Noted Allergy Reaction AMPYRA (DALFAMPRIDINE) 08/14/2019 14 - Other: See Comments Comments: Seizure and stroke. PENICILLINS 01/18/2007 12 - Shortness of Breath Date Reviewed: 08/14/2019 Reviewed by: Montez Nicholson - Fully Assessed Reason for Visit: Established Patient [175] Cmt: hospital follow up Visit Diagnosis:Intracranial hemorrhage (HCC) [I62.9] Order(s):CT BRAIN MARCOS ESTEVEZ [[id number]] Order #: [id number] FUTURE Prescriptions as of 08/14/2019 Sig: ACETAMINOPHEN 325 MG TABLET Take 3 tablets by mouth every* CHOLECALCIFEROL (VITAMIN D3) * Take 1,000 Units by mouth onc* CYANOCOBALAMIN (VIT B-12) 1,0* Take 1,000 mcg by mouth once * LEVETIRACETAM 1,000 MG TABLET Take 1 tablet by mouth twice * CYCLOBENZAPRINE 5 MG TABLET Take 1 tablet by mouth three * Patient not taking: Reported on 08/14/2019 Problem List As Of Date 08/14/2019 Noted Resolved Subdural hemorrhage (HCC) [I62.00] INVALID FOR* Animal-rider injured by fall from or being thro*INVALID FOR*08/01/2019 Mild TBI (traumatic brain injury) (HCC) [S06.9X*INVALID FOR* Thumb dislocation, left, initial encounter [S63*INVALID FOR*08/01/2019 Multiple sclerosis (HCC) [G35] INVALID FOR* Hypokalemia [E87.6] INVALID FOR*08/01/2019 Abrasion of anterior right lower leg [S80.811A] INVALID FOR*08/01/2019 Intracranial hemorrhage (HCC) [I62.9] INVALID FOR* Follow-up and Disposition History Recorded Encounter Status:Closed by MONTEZ NICHOLSON MD on 08/14/19 [facility] PROGRESSon 08-14-2019 PROGRESS HNO ID: [id number] Author: Vaishali Garza Service: ? Author Type: Nurse Practitioner Type: Progress Notes Filed: 08/14/2019 2:50 PM Note Text: NEUROSURGERY FOLLOW UP OFFICE NOTE Dr. Montez Nicholson MD, [facility] Date of visit: August 14, 2019 Patient Name: Ms.Melia Parish Parks Date of : 1965 Current Age: [age] year old Sex: female MRN/E# [id number] Last Office Visit: Hospital Follow up 07/29/19 Chief Complaint: Patient presents with: Established Patient: hospital follow up SUBJECTIVE: Presents as a hospital follow-up with imaging (CT Brain) for evaluation of the subdural hematoma. She was seen on 07/29/19 at [facility] after falling off her horse when it ran out of control from being spooked. She was not on anticoagulants but workup in the ED showed a subdural hematoma which was nonsurgical. Patient was discharged home on 08/02/19 and was stable at the time. Since discharge she states she is overall doing well. Denies headache, visual changes, speech deficits, seizure activity, motor or sensory deficits. Presents for image review, evaluation and plan of care. Symptoms: None PREVIOUS CONSERVATIVE TREATMENTS: None PREVIOUS SURGERY: None PAIN EVALUATION 08/14/2019 1407 Pain Level: 1 Pain Location: Head left thumb left thumb Description: Dull;Aching Duration Amount of Time: 2 Duration Units: Weeks Frequency: Intermittent Comments: ? patient fell off horse 07/29/2019. patient fell off horse 07/29/2019. PAST MEDICAL HISTORY Diagnosis Date - Multiple sclerosis (HCC) PAST SURGICAL HISTORY Procedure Laterality Date - TREAT ECTOPIC PREG,NON REMVAL 1994 Ectopic FAMILY HISTORY Problem Relation Age of Onset - Breast Cancer Sister - Arthritis Sister - Heart Father - Hypertension Father ALLERGIES Allergen Reactions - Ampyra [Dalfampridi* Other: See Comments Seizure and stroke. - Penicillins Shortness of Breath Current Outpatient Medications Medication Sig Dispense Refill - acetaminophen (TYLENOL) 325 mg tablet Take 3 tablets by mouth every 6 hours as needed for Pain. 30 tablet 0 - cholecalciferol (VITAMIN D) 1,000 unit tab tablet Take 1,000 Units by mouth once daily. - cyanocobalamin (VITAMIN B-12) 1,000 mcg tab Take 1,000 mcg by mouth once daily. - levETIRAcetam (KEPPRA) 1,000 mg tablet Take 1 tablet by mouth twice daily for 5 days. 9 tablet 0 - cyclobenzaprine (FLEXERIL) 5 mg tablet Take 1 tablet by mouth three times daily as needed for Muscle Spasm for up to 30 doses. (Patient not taking: Reported on 08/14/2019 ) 30 tablet 0 No current facility-administered medications for this visit. REVIEW OF SYSTEMS Review of Systems Constitutional: Negative for chills, diaphoresis (Negative for night sweats.) and fever. HENT: Negative for ear discharge and rhinorrhea. Eyes: Negative for discharge. Respiratory: Negative for cough, shortness of breath and wheezing. Cardiovascular: Negative for chest pain, palpitations and leg swelling. Gastrointestinal: Negative for constipation, diarrhea, nausea and vomiting. Endocrine: Negative for cold intolerance and heat intolerance. Genitourinary: Negative for frequency. Negative for urinary incontinence and urinary retention. Musculoskeletal: Negative for back pain, joint swelling, myalgias and neck pain. Skin: Negative for rash (Negative for hives and skin lesions.). Allergic/Immunologic: Negative for environmental allergies and food allergies. Negative for contact allergy, seasonal allergies. Neurological: Negative for dizziness, seizures, syncope, weakness, light-headedness, numbness (Negative for numbness in extremities.) and headaches. Hematological: Does not bruise/bleed easily. Psychiatric/Behavioral : The patient is not nervous/anxious. Negative for depression. OBJECTIVE: BP 90/62 Pulse 83 Resp 14 Ht 5' 6 (1.68m) Wt 106 lb (48.1kg) SpO2 95% BMI 17.12 kg/(m2). PHYSICAL EXAM: Mental State : Alert, memory function unremarkable. Attention span and concentration Normal for patient's age. Recent and remote memory normal Orientation : Oriented to person, place and time Higher Cortical Function : Intact speech and language. Spontaneous speech and comprehension normal. Fund of knowledge intact for pt level of education. Cranial Nerves : II: No visual field cut no blurring. Makes and sustains eye contact III, IV, : Normal, no double vision or drooping. Pupils equal and reactive to light. Extraocular muscles intact. No nystagmus V: Normal sensation on the face, normal jaw movements VII: No paresis on either side. VIII: No gross hearing deficit IX: Normal palatal movements XI: Good and equal shoulder shrugs XII: Tongue midline, no fasciculation Sensory : Normal sensation upper and lower extremities and trunk to light touch and noxious stimuli. Motor : Normal muscle tone and bulk. No tremor or uncontrollable movements No spasticity. Strength: Upper Extremities : R L Deltoid 5/5 5/5 Biceps 5/5 5/5 Triceps 5/5 5/5 Wrist Ext 5/5 5/5 Wrist Flx 5/5 5/5 Hand Int 5/5 5/5 Lower Extremities : Hip Flexors 5/5 5/5 Hip Extensors 5/5 5/5 Hip Abductors 5/5 5/5 Hip Adductors 5/5 5/5 Quads 5/5 5/5 Ankle dorsiflex 5/5 5/5 Ankle plantars 5/5 5/5 Heel Walking intact intact Toe Walking intact intact Reflexes : Biceps 2+ 2+ Triceps 2+ 2+ Wrist 2+ 2+ Patellar 2+ 2+ Achilles 2+ 2+ Love's Neg Neg Tinel's Neg Neg Cerebellar Function : Normal finger to nose and rapid alternating movements. No ataxia. Negative Romberg. Gait and Station: Antalgic, utilizing an assistive device. Pulmonary: Lungs without cough, audible wheeze. Respirations unlabored. Cardiac: Regular rate and rhythm. No murmer, gallop or rub. IMAGING: No new imaging ASSESSMENT/PLAN: 1. Intracranial hemorrhage (HCC) - ICD9: 432.9, ICD10: I62.9 Patient had a small interhemispheric subdural hematoma following a fall for which neurosurgery was consulted to see her in the hospital. Follow-up scan showed no worsening of the small interhemispheric subdural hematoma and now patient presents to the clinic for a follow-up visit. She reports no headache nausea vomiting or neurologic problems. Her neurological examination is normal today. I recommended a CT scan without contrast enhancement as a follow-up. She had taken a short course of Keppra and she finished that course. She will be scheduled for a scan at a [facility] facility following which I will see her with the scan and advised her. - CT BRAIN MARCOS Nicholson MD Follow Up: No follow-ups on file. This note was partially generated using [employer] voice recognition system, and there may be some incorrect words, spellings, and punctuation that were not noted in checking the note before saving. Normal [facility] PROGRESSon 08-02-2019 PROGRESS HNO ID: [id number] Author: Aaron Lee) Alex Service: Trauma Author Type: Physician Chief Controller Tower Type: Progress Notes Filed: 08/02/2019 1:29 PM Note Text: Trauma Progress Note SERVICE DATE: 08/02/2019 SUBJECTIVE: NAEON. Pain is controlled. Patient expresses that she wants to get out of here. PT/OT recommending acute rehab and patient is agreeable. Tolerating diet. No other concerns. OBJECTIVE: Vitals: Temp (24hrs), Av.7 ?C (98 ?F), Min:36.6 ?C (97.9 ?F), Max:36.8 ?C (98.2 ?F) BP 103/58 Pulse 69 Temp 36.7 ?C (98.1 ?F) (Temporal) Resp 18 Ht 170.2 cm (5' 7) Wt 42 kg (92 lb 8 oz) SpO2 100% BMI 14.49 kg/m? O2 Therapy: Room Air IANDO: Date 08/01/19699 - 08/02/1965808/02/19699 - 08/03/19 0659 Shift 8088-0602 4088-2344 6039-5833 24 Hour Total 1256-2290 9505-5750 1607-2539 24 Hour Total INTAKE PO 700 347 826 6795 120 120 PO 700 687 042 5927 120 120 Shift Total 700 309 434 5449 120 120 OUTPUT Urine Urine Not Saved. 2 x 3 x 1 x 6 x # of BMs Number of BMs 1 x 1 x Shift Total Weight (kg) 42.2 42.2 42 42 42 42 42 42 MEDICATIONS Current Facility-Administered Medications Medication Dose Route Frequency - acetaminophen 975 mg tab(s) (TYLENOL) 975 mg ORAL q 6 H - cyclobenzaprine 5 mg tab(s) (FLEXERIL) 5 mg ORAL TID - senna-docusate 8.6-50 mg 1 tablet (SENNA-S) 1 tablet ORAL BID - levETIRAcetam 1,000 mg tab(s) (KEPPRA) 1,000 mg ORAL BID - enoxaparin 30 mg injection (LOVENOX) 30 mg SUBCUTANEOUS q 12 HR - oxyCODONE IR 5 mg tab(s) (ROXICODONE) 5 mg ORAL q 4 H PRN - ondansetron (PF) 4 mg injection (ZOFRAN) 4 mg INTRAVENOUS q 6 H PRN - bacitracin-polymyxin B 500-10,000 unit/gram (POLYSPORIN) TOPICAL TID Labs: Recent Labs 07/31/19 0259 NA 140 K 4.2 CHLOR 109* CO2 22 BUN 10 CREAT 0.71 GLUC 81 ANION 13 CA 8.3* WBC 6.36 HB 11.6 HCT 35.4 PLT 130* PHYSICAL EXAM: Genl: Appears older than stated age. No acute distress. Resting comfortably. Head/Face: Abrasions and ecchymosis to right face. Eyes: EOMI. Sclera not icteric, not injected Resp: Lungs clear bilat. No wheezes. No rales. Breathing is non-labored on RA @100%. CVS: RRR as above; 2+ pulses at RA, DP, PT bilat. GI: Abdomen is soft, non-tender, not distended. Bowel sounds normoactive. No peritonitis. MSK: Extremities without clubbing, cyanosis, edema. Normal ROM x 4. Splint to left wrist/hand. Skin: Warm and dry. No lesions of concern. Not jaundiced. Neuro: AANDOx3. Strength, sensation, proprioception normal. GARCIAS. GCS15. Psych: Normal mood. Normal affect. Appropriate insight into current situation. ASSESSMENT AND PLAN: Active Hospital Problems Diagnosis Date Noted - Subdural hemorrhage (HCC) 07/30/2019 - Mild TBI (traumatic brain injury) (HCC) 07/30/2019 - Multiple sclerosis (HCC) 07/30/2019 54 year old female s/p fall from horse with SDH, dislocated left thumb, and abrasions Imaging performed: 1. CT HNCAPMF (07/29) 2. XR chest, pelvis, L hand, R ribs (07/29) 3. CT brain (07/30) Traumatic Injuries: 1. Acute interhemispheric subdural hematoma approximately 3 mm in maximal thickness 2. Left thumb dislocation Operations: 1. None Care Plan: 1. SDH 1. Repeat CT brain stable 2. Follow up in 2 weeks 3. Keppra x7 days 2. Left thumb dislocation 1. Left wrist thumb spica splint 2. F/U outpatient 1 week 3. Current diet order: DIET REGULAR 4. Pain regimen: Scheduled Tylenol, Flexeril; prn Roxicodone 5. Bowel regimen: Senna-s 6. Medically stable for discharge to acute rehab. PPX: 1. DVT: Lovenox, SCDs, mobilize 2. Ulcer: n/a 3. Vit D level if > 65 yo: n/a Consulted Services and Recommendations: 1. NSGY 2. Ortho Dispo Plannin. PT/OT recs Acute Rehab. Case management following. Awaiting precert. Incidentals: 1. 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 Follow Up Needs: 1. Ortho - Dr. Hunter in 1 week 2. NSGY - Dr. Nicholson in 2 weeks 3. PCP Staff Trauma Surgeon: Dr. España Trauma Service Pager: For questions or concerns Mon-Sun 6a-5p please page [phone]. After 5pm and on Weekends and Holidays, please page [phone] if in ICU or [phone] if on RNF. SIGNATURE: Aaron Johnson PA-C PATIENT NAME: Jamel Parks DATE: August 02, 2019 TIME: 0800 Pager: [phone] (text page) Normal [facility] THERAPY NTon 08-02-2019 THERAPY NT HNO ID: [id number] Author: Argelia (PtSarwat Louise Service: Physical Therapy Author Type: Physical Therapist Type: Therapy (PT/OT/Speech/Resp) Filed: 08/02/2019 4:12 PM Note Text: Physical Therapy Treatment SERVICE DATE: 08/02/2019 SERVICE TIME: 1525 to 1550 ROOM: [place] [address] Recommended Discharge Disposition: Outpatient Physical Therapy Recommended Discharge Disposition Comments: Discharge disposition recommendation changed to home with family assist 18/06 and outpatient PT for balance deficits/debility. Patient able to demonstrate gait pattern near to baseline with 1 hand held assist and has a cane at home. Patient also reports that her son or daughter will be able to stay with her around the clock initially upon return to home to ensure safety. Justification For Post Acute Needs: (No longer applicable) Anticipated Discharge Needs: Physical Assist at Home;Supervision at Home Physical Assist at Home for: Ambulation;Cleaning;La undry;Meals;Stairs;Tra nsportation Supervision at Home due to: Decreased safety awareness Recommended Discharge Equipment: No equipment needs anticipated PT Recommendations to Nursing: Ambulate with device;To bathroom;In halls;OOB for Meals;With assist of 1 person Device: Hand Held Assist PT 6 Clicks Score: 22 Precautions/Activity Restrictions: Weight Bearing Restrictions;Fall Risk;Lines/Tubes/Drain s Precaution/Activity Restriction Comments: IV lock; splint distal L UE Extremity With Weight Bearing Restricted: Left Upper Extremity Left Upper Extremity Weight Bearing Status: NWB ASSESSMENT : Patient able to demonstrate gait near to her baseline, per patient report, with 1 hand held assist. Patient progressing well towards goals and is able to ascend/descend 4 steps with a handrail on the right ascending and descending due to NWB L UE. Discharge disposition recommendation changed to home with outpatient PT for balance deficits/debility. Patient Disposition at Start of Session: OOB in Chair;Call Lacy in Reach Patient Disposition at End of Session: OOB in Chair;Call Lacy in Reach Tolerated Full Session Physical Therapy Problem List: Pain;Safety Deficits;Impaired Self Care;Decreased Activity Tolerance;Decreased Strength;Functional Mobility Impairment;Balance Impaired;Decreased Range Of Motion Patient /Caregiver Goals: Go Home Goals for Plan of Care: Transfer supine to/from sit with: Independent Transfer sit to/from stand with: Independent Ambulate with: Independent Distance: 150 Device: Cane Ambulate up and down steps with: Supervision Number of steps: 4 Device: Rail Progress Toward Goals: Progressing as expected Rehab Potential: Good PLAN: Treatment Frequency (times per week): 5(2-5) Current admission Treatment Interventions: Education;Self Care / Home Management;Strengtheni ng;Functional Mobility Training;Balance Training;Neuromuscular Re-education Plan of Care developed with: Patient TREATMENT INTERVENTIONS: Therapy Diagnosis: Reduced mobility-other;Decreas ed activities of daily living (ADL);Muscle Weakness (generalized) Interventions Provided: Therapeutic Exercise (43698);Gait Training (18503) Therapeutic Exercise (69984) Treatment Minutes: 10 1 unit Skilled Intervention(s): Pt performed the following seated therapeutic exercises: ankle pumps, hip flexion/marching, LAQs, and hip add with pillow, 1 x 10-15 each bilaterally. Patient required visual demonstration and verbal cues for exercises. Gait Training (02962) Treatment Minutes: 13 1 unit Skilled Intervention(s): Instruction in sit to stand technique with proper hand placement and body positioning at edge of chair/ raised toilet seat with grab bar. Instruction in stand to sit technique with LE's touching chair/raised toilet seat and reaching back for surface to control descent. Instruction in sequencing, gait pattern, correction of gait deviations, and facilitation of normalization of gait pattern with right hand held assist. Instruction in WB precautions (NWB L UE) as patient was reaching with L UE to assist with transfers/stairs, etc. Instruction in stair negotiation and safety on the stairs with handrail on the right only due to NWB L UE. Total Timed Code Treatment Minutes: 23 Total Treatment Time (minutes): 23 SUBJECTIVE: Current Hospital Course: Chart reviewed and no significant medical updates relevant to therapy were noted Reason for Physical Therapy Consult : eval Relevant Past Medical History: multiple sclerosis Patient Report: Patient agreeable to PT. Patient denies pain at this time. Home Environment Patient Lives With: Self/Alone Assistance Available: PRN Entry To Home: Stairs;With Rail Number Of Stairs Into Home: 2 Number Of Stairs To Bed/Bath: All one floor Tub/Shower Type: Walk-in Equipment Owned: Hand Held Shower;Cane Prior Functional Level: Within Functional Limits Prior Functional Level Comments: Pt. lives in a duplex by herself. Per patient she was independent in all self care and functional mobility prior to admission. She would occasionally use a cane or walking stick for mobility, but mostly independent. Her son and daughter do not live in the area. OBJECTIVE: Mini Cog Score: 2 (07/31/19 3817) CURRENT FUNCTIONAL STATUS: Current Functional Mobility Assist Level Additional Information Rolling Supine to Sit Sit to Supine Scooting Sit to Stand Supervision Stand to Sit Supervision Bed to Chair Toilet/Commode Gait Contact Guard Assistance Gait Device: Hand Held Assist Gait Distance (feet): 200' x2 Stairs Contact Guard Assistance Stairs Device: Rail Number of Stairs: 4 Curb Step Car Transfer Gait Deviations Right Lower Extremity: Heel strike during initial stance decreased;Stance time decreased;Foot clearance decreased General Gait Deviations: Kaylen decreased;Step length decreased;Narrow Base of Support;Non-functional gait speed JH-HLM: 8: Walk 250 feet or more Please see discipline specific clinical documentation flowsheet for complete details for this therapy evaluation/treatment. SIGNATURE: Argelia Louise PT PATIENT NAME: Jamel Parks DATE: August 02, 2019 TIME: 4:07 PM [facility] CASE MANAGEMon 08-01-2019 CASE MANAGEM HNO ID: [id number] Author: Minerva GuerreroRn) SALINA Guzman Service: Care Management Author Type: Registered Nurse Type: Care Mgt Progress Note Filed: 08/01/2019 11:43 AM Note Text: CARE MANAGEMENT PROGRESS NOTE SERVICE DATE: 08/01/2019 SERVICE TIME: 11:40 AM LOS: 2 days Needs Prior to Discharge: Insurance Authorization;Discharg e Transportation Discharge Plan= Acute Rehab Chart reviewed. Patient medically stable for discharge. [facility] able to accept patient. Awaiting insurance authorization. Will continue to follow clinical course for further DC planning needs. SIGNATURE: Minerva Guzman RN PATIENT NAME: Jamel Parks DATE: August 01, 2019 TIME: 11:40 AM PAGER/CONTACT #: [phone] [facility] CASE MANAGEM HNO ID: [id number] Author: Shirley Daniels Service: Care Management Author Type: ? Type: Care Mgt Progress Note Filed: 08/01/2019 11:00 AM Note Text: CARE MANAGEMENT PROGRESS NOTE SERVICE DATE: 08/01/2019 SERVICE TIME: 1030 LOS: 2 days IM letter given to patient on . SIGNATURE: Shirley Daniels PATIENT NAME: Jamel Parks DATE: August 01, 2019 TIME: 11:00 AM PAGER/CONTACT #: [phone] [facility] NURSING PROGon 08-01-2019 NURSING PROG HNO ID: [id number] Author: Zeynep Sanchez RN Service: General Surgery Author Type: Registered Nurse Type: Nursing Progress Note Filed: 08/01/2019 5:07 PM Note Text: Nursing Progress Note Patient Name: Jamel Parks Patient Location: [place] [address] [address] 05-26 __ Event(s) / Intervention Note: Patients manual BP at 1650 was 82/62 and HR was 65. Patient had ambulated to bathroom at 1600 and was asymptomatic and not complaining of dizziness or lightheadedness. Patients baseline HR and BP do run on the lower end. RN notified Dr. Queen. No new orders at this time, will continue to monitor the patients vital signs. This note was completed by: Zeynep Sanchez RN [facility] NURSING PROG HNO ID: [id number] Author: Rhona Robledo RN Service: Nursing Author Type: Registered Nurse Type: Nursing Progress Note Filed: 08/01/2019 1:53 AM Note Text: Nursing Progress Note Patient Name: Jamel Parks Patient Location: [place] [address] [address] 05-26 __ Recheck of patient's BP after bolus was 92/60, notified Dr. Medrano. No new orders received, will continue to monitor. This note was completed by: Rhona Robledo RN [facility] NURSING PROG HNO ID: [id number] Author: Rhona (Rn) Meena RN Service: Nursing Author Type: Registered Nurse Type: Nursing Progress Note Filed: 08/01/2019 12:43 AM Note Text: Nursing Progress Note Patient Name: Jamel Parks Patient Location: [place] [address] 05-[address] __ Notified Dr[address] Medrano regarding patient's low BP of 80/46 manually. New orders to bolus 500 cc NS, will continue to monitor. This note was completed by: Rhona Robledo RN [facility] NUTRITIONon 08-01-2019 NUTRITION HNO ID: [id number] Author: Luci Reed) KERRI Berg Service: Nutrition Therapy Author Type: Registered Dietitian Type: Nutrition Filed: 08/01/2019 2:58 PM Note Text: NUTRITION THERAPY PROGRESS NOTE SERVICE DATE: 08/01/2019 SERVICE TIME: 14:55 RECOMMENDED DIAGNOSIS: NO MALNUTRITION IDENTIFIED per Registered Dietitian on 07/30/19 NUTRITION CARE PLAN Problem, Etiology and Signs/Symptoms: Increased nutrient needs kcal/protein related to increased physiological demand as evidenced by SDH/healing Intervention: 1. D/C Ensure Clear - declines additional offerings 2. Encouraged oral intake. Please document accurate % meals taken in nursing flowsheet, thank you Monitor and Evaluation: Goal: Meet >75% of estimated needs Monitor fluid/electrolyte balance Monitor labs, I/Os, vital signs, weight Discharge Nutrition Recommendations: Diet: Regular ---- Nutrition Follow-up: Interval History: PT/OT recommending acute rehab. Trauma following, stating pt is medically stable for discharge. Awaiting insurance auth. Nutritional Intake: <75% estimated energy needs over the past 2 day(s). PO intake has been variable, 25, 25, 40, 100, 100% last respective meals. Patient tells me she ate almost all of her lunch as well. Does not normally eat breakfast and reports she ate almost 100% of her breakfast here. States she is eating more here than she does at home. Does not like any version of Ensure/Boost,etc. States that made me gag and want to throw up, don't waste it on me. Orders Placed This Encounter DIET REGULAR Standing Status: Standing Number of Occurrences: 1 Supplement 1 Frequency: 5. DINNER Supplement 1: ENSURE CLEAR MIXED YOUSSEF There are no questions and answers to display. There are no questions and answers to display. Lines and Drains: Peripheral 07/30/19 0030 Left Antecubital 20 Gauge (Active) Height: 170.2 cm (5' 7) Admission Weight: 48.1 kg (106 lb) Current Weight: 42.2 kg (93 lb) Body mass index is 14.57 kg/m?. underweight Recent Labs 07/31/19 0259 07/30/19 0401 07/29/19 2205 GLUC 81 98 97 BUN 10 12 15 CREAT 0.71 0.69 0.81 NA 140 140 140 K 4.2 3.4* 4.3 CHLOR 109* 111* 108* CO2 22 26 31 ALB -- -- 4.0 P -- 2.8 -- HB 11.6 10.4* 13.0 HCT 35.4 30.8* 38.7 WBC 6.36 6.61 11.47* MG -- 1.9 -- MNT Billing Type: Re-assess/15 min 1 unit SIGNATURE: Luci Berg RD PATIENT NAME: Jamel Parks DATE: August 01, 2019 TIME: 2:15 PM PAGER: [phone] Normal [facility] PLAN OF CAREon 08-01-2019 PLAN OF CARE HNO ID: [id number] Author: Alphonse Medrano DO Service: General Surgery Author Type: Resident Type: Plan of Care Filed: 08/01/2019 12:31 AM Note Text: RN paged on-call resident about patient having hypotension. Patient seen and examined. Labs, Vitals and Imaging reviewed. Subjective: Patient states she is feeling well and was relaxing in bed watching tv. States she runs low. Denies any CP or SOA, F/C. Objective: 07/31/19 0726 07/31/19 1521 07/31/19 1937 08/01/19 0001 BP: 113/63 105/80 (!) 92/45 (!) 80/46 Pulse: 64 65 66 65 Resp: 16 16 16 18 Temp: 36.8 ?C (98.2 ?F) 36.8 ?C (98.2 ?F) 36.6 ?C (97.9 ?F) 36.7 ?C (98.1 ?F) TempSrc: Temporal Oral Oral Oral SpO2: 99% 98% 100% 100% Weight: Height: Physical exam Gen: in no apparent distress, watching tv Lungs: On Room air, normal respiratory effort Chest: BP as above, Good Radial pulse, normal rate and rhythm Assessment/Plan: - Will give 500cc bolus - Instructed patient to notify RN of any symptoms of lightheadedness, n/v, F/c, Cp or soa - RN to page with changes - will monitor Alphonse Medrano DO, MBA PGY-1 General Surgery Resident 08/01/2019 12:30 AM Pager below: Emergency General Surgery Service Pager: For questions or concerns Mon-Fri 6a-5p please page [phone]. After 5pm and on Weekends and Holidays, please page [phone] if in ICU or [phone] if on RNF. Normal [facility] PROGRESSon 08-01-2019 PROGRESS HNO ID: [id number] Author: Ana Mccormick) Drain Service: Trauma Author Type: Nurse Practitioner Type: Progress Notes Filed: 08/01/2019 9:48 AM Note Text: Trauma Progress Note SERVICE DATE: 08/01/2019 SUBJECTIVE: NAEON. Patient reiterates this am that her blood pressure is low at baseline. Tolerating diet. Pain is controlled. Awaiting placement at Acute Rehab. OBJECTIVE: Vitals: Temp (24hrs), Av.8 ?C (98.2 ?F), Min:36.6 ?C (97.9 ?F), Max:36.9 ?C (98.4 ?F) BP 99/55 Pulse 62 Temp 36.9 ?C (98.4 ?F) (Oral) Resp 18 Ht 170.2 cm (5' 7) Wt 42.2 kg (93 lb) SpO2 99% BMI 14.57 kg/m? O2 Therapy: Room Air IANDO: Date 07/31/19699 - 08/01/1965808/01/19699 - 08/02/19 0659 Shift 8846-1664 5539-2833 4029-9662 24 Hour Total 9874-5829 6820-8862 0447-7711 24 Hour Total INTAKE PO 250 200 120 570 PO 250 200 120 570 IV 500 500 NS 0.9% 500 500 Shift Total 250 993 996 6376 OUTPUT Urine 600 450 0 1050 Void (ml) 600 450 0 1050 Urine Not Saved. 2 x 2 x Shift Total 600 450 0 1050 Weight (kg) 43 43 42.2 42.2 42.2 42.2 42.2 42.2 MEDICATIONS Current Facility-Administered Medications Medication Dose Route Frequency - acetaminophen 975 mg tab(s) (TYLENOL) 975 mg ORAL q 6 H - cyclobenzaprine 5 mg tab(s) (FLEXERIL) 5 mg ORAL TID - senna-docusate 8.6-50 mg 1 tablet (SENNA-S) 1 tablet ORAL BID - levETIRAcetam 1,000 mg tab(s) (KEPPRA) 1,000 mg ORAL BID - enoxaparin 30 mg injection (LOVENOX) 30 mg SUBCUTANEOUS q 12 HR - oxyCODONE IR 5 mg tab(s) (ROXICODONE) 5 mg ORAL q 4 H PRN - ondansetron (PF) 4 mg injection (ZOFRAN) 4 mg INTRAVENOUS q 6 H PRN - bacitracin-polymyxin B 500-10,000 unit/gram (POLYSPORIN) TOPICAL TID Labs: Recent Labs 07/31/19 0259 07/30/19 0401 07/29/19 2205 NA 140 140 140 K 4.2 3.4* 4.3 CHLOR 109* 111* 108* CO2 22 26 31 BUN 10 12 15 CREAT 0.71 0.69 0.81 GLUC 81 98 97 ANION 13 6* 5* CA 8.3* 7.8* 9.2 MG -- 1.9 -- P -- 2.8 -- ALB -- -- 4.0 AST -- -- 30 ALT -- -- 33 ALKPHOS -- -- 41* TBILI -- -- 0.8 WBC 6.36 6.61 11.47* HB 11.6 10.4* 13.0 HCT 35.4 30.8* 38.7 PLT 130* 131* 175* INR -- -- 1.09 PHYSICAL EXAM: Genl: Appears older than stated age. No acute distress. Resting comfortably. Head/Face: Abrasions and ecchymosis to right face. Eyes: EOMI. Sclera not icteric, not injected Neck: No mid-line masses. C-spine non-tender. Back: T AND L Spine non-tender, no step-offs noted. No flank tenderness. Resp: Lungs clear bilat. No wheezes. No rales. Breathing is non-labored on RA @100%. CVS: RRR as above; 2+ pulses at RA, DP, PT bilat. GI: Abdomen is soft, non-tender, not distended. Bowel sounds normoactive. No peritonitis. MSK: Extremities without clubbing, cyanosis, edema. Normal ROM x 4. Splint to left wrist/hand. Skin: Warm and dry. No lesions of concern. Not jaundiced. Neuro: AANDOx3. Strength, sensation, proprioception normal. GARCIAS. GCS15. Psych: Normal mood. Normal affect. Appropriate insight into current situation. ASSESSMENT AND PLAN: Active Hospital Problems Diagnosis Date Noted - Subdural hemorrhage (HCC) 07/30/2019 - Animal-rider injured by fall from or being thrown from horse in noncollision accident, initial encounter 07/30/2019 - Mild TBI (traumatic brain injury) (HCC) 07/30/2019 - Thumb dislocation, left, initial encounter 07/30/2019 - Multiple sclerosis ([facility]) 07/30/2019 - Hypokalemia 07/30/2019 - Abrasion of anterior right lower leg 07/30/2019 54 year old female s/p fall from horse with SDH, dislocated left thumb, and abrasions Imaging performed: 1. CT HNCAPface (07/29) 2. XR chest, pelvis, L hand, R ribs (07/29) 3. CT brain (07/30) Traumatic Injuries: 1. Acute interhemispheric subdural hematoma approximately 3 mm in maximal thickness 2. Left thumb dislocation Operations: 1. None Care Plan: 1. SDH 1. Repeat CT brain stable 2. Follow up in 2 weeks 3. Keppra x7 days 2. Left thumb dislocation 1. Left wrist thumb spica splint 2. F/U outpatient 1 week 3. Current diet order: DIET REGULAR 4. Pain regimen: Scheduled tylenol, flexeril; prn oxy 5. Bowel regimen: Senna-s 6. Medically stable for discharge to acute rehab. PPX: 1. DVT: Lovenox, SCDs, mobilize 2. Ulcer: n/a 3. Vit D level if > 65 yo: n/a Consulted Services and Recommendations: 1. NSGY 2. Ortho Dispo Plannin. PT/OT recs Acute Rehab. Case management following. Incidentals: 1. 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 Follow Up Needs: 1. Ortho - Dr. Hunter in 1 week 2. NSGY - Dr. Nicholson in 2 weeks 3. PCP Staff Trauma Surgeon: Dr. España Trauma Service Pager: For questions or concerns Mon-Fri 6a-5p please page [phone]. After 5pm and on Weekends and Holidays, please page [phone] if in ICU or [phone] if on RNF. SIGNATURE: Ana Murphy APRN.CNP PATIENT NAME: Jamel Parks DATE: August 01, 2019 TIME: 9:48 AM Pager: [phone] (text page) [facility] THERAPY NTon 08-01-2019 THERAPY NT HNO ID: [id number] Author: Maco Sharp) Chanell Service: Physical Therapy Author Type: Partner Alliance Manager Type: Therapy (PT/OT/Speech/Resp) Filed: 08/01/2019 4:14 PM Note Text: Attestation signed by Jose Luis eKnny) KAITY Meza at 08/01/2019 4:28 PM I reviewed and agree with the documentation corresponding to this therapy visit. SIGNATURE: Jose Luis Meza PT DATE: August 01, 2019 TIME: 4:28 PM Physical Therapy Treatment SERVICE DATE: 08/01/2019 SERVICE TIME: 1505 to 1545 ROOM: [id number] Recommended Discharge Disposition: Acute Rehab Recommended Discharge Disposition Comments: Pending progress toward goals. Pt with acute injuries and deficits in mobility, strength, dynamic balance; Short Form Patel Balance Assessment indicates increased fall risk. Pt from home alone with limited assistance and was independent prior to admission, recommend continued therapy at acute rehab to maximize functional gains toward greater independence prior to return home. Justification For Post Acute Needs: Anticipate that patient will require daily (5x/wk) skilled therapy in a post-acute facility setting at the time of acute hospital discharge;Willing to participate;Anticipate patient will tolerate 3 hours of daily therapy at the time of admission to post-acute setting PT Recommendations to Nursing: Ambulate with device;To bathroom;In halls;Transfer to/from chair;OOB for Meals;Sit at edge of bed;With assist of 1 person Device: Hand Held Assist PT 6 Clicks Score: 17 Precautions/Activity Restrictions: Fall Risk;Weight Bearing Restrictions Extremity With Weight Bearing Restricted: Left Upper Extremity Left Upper Extremity Weight Bearing Status: NWB ASSESSMENT : Patient presents with ongoing PT goals--patient with increased loss of balance with dynamic standing balance tasks, transfer, and gait-- requiring need for right UE support and minimal outside assistance. Patient significantly below baseline functioning, patient at increased risk for fall/injury with current balance deficits and level of functional mobility. continue to recommend acute care to improved strength, ROM, endurance, normalized gait pattern, and independence with mobility tasks to prior level of function for safe return to home activity. Patient Disposition at Start of Session: OOB in Chair;Call Lacy in Reach Patient Disposition at End of Session: OOB in Chair;Call Lacy in Reach Tolerated Full Session Physical Therapy Problem List: Pain;Safety Deficits;Impaired Self Care;Decreased Activity Tolerance;Decreased Strength;Functional Mobility Impairment;Balance Impaired;Decreased Range Of Motion Patient /Caregiver Goals: Go Home Goals for Plan of Care: Transfer supine to/from sit with: Independent Transfer sit to/from stand with: Independent Ambulate with: Independent Distance: 150 Device: Cane Ambulate up and down steps with: Supervision Number of steps: 4 Device: Rail Progress Toward Goals: Progressing as expected Rehab Potential: Good PLAN: Treatment Frequency (times per week): 5(2-5) Current admission Treatment Interventions: Education;Self Care / Home Management;Strengtheni ng;Functional Mobility Training;Balance Training;Neuromuscular Re-education Plan of Care developed with: Patient TREATMENT INTERVENTIONS: Therapy Diagnosis: Reduced mobility-other;Decreas ed activities of daily living (ADL);Muscle Weakness (generalized) Interventions Provided: Therapeutic Activity (05401);Gait Training (78911);Neuromuscular Reeducation (60579) Therapeutic Activity (62055) Treatment Minutes: 3 0 units Skilled Intervention(s): Instruction in sit to and from stand technique with proper hand placement and body positioning at edge of bed/chair--frequent cuing needed for patient to keep left arm up to prevent weight bearing during transfers/mobility tasks, Patient educated for proper proximity to seated surfaces, with LEs touching--frequent cuing needed, patient attempting to sit to far away from seated surface. Patient educated to keep LUE elevated on pillow to decrease edema in hand/wrist. Gait Training (42684) Treatment Minutes: 12 1 unit Skilled Intervention(s): Instruction in sit to stand technique with proper hand placement and body positioning at edge of bed/chair, Instruction in stand to sit technique with LE's touching chair/bed and reaching back for surface, Instruction in sequencing, gait pattern and Instruction in correction of gait deviations--cuing for proper heel strike, improve posture, proper sequencing of cane and LE for modified 2 point gait pattern, patient stating cane feels uncomfortable in right hand, due to being left handed, but knowing not allowed to bear weight with LUE. Assist needed for proper weight shifts throughout. Neuromuscular Re-Education (52684) Treatment Minutes: 25 2 units Skilled Intervention(s): bilateral LE strengthening and balance tasks--hip marching, hip ABD, hip extension, HS curls, heel raises--right UE support and minimal assist for weight shifts--bilateral lateral stepping, assist through gait belt and hips for proper stepping, LE target stepping (LE clocks) increased loss of balance with LE clocks and when in single leg stance. Total Timed Code Treatment Minutes: 40 Total Treatment Time (minutes): 40 SUBJECTIVE: Current Hospital Course: Chart reviewed and no significant medical updates relevant to therapy were noted Reason for Physical Therapy Consult : eval Relevant Past Medical History: multiple sclerosis Patient Report: patient stated just falling asleep, but willing to participate in therapy, wants to get better. Home Environment Patient Lives With: Self/Alone Assistance Available: PRN Entry To Home: Stairs;With Rail Number Of Stairs Into Home: 2 Number Of Stairs To Bed/Bath: All one floor Tub/Shower Type: Walk-in Equipment Owned: Hand Held Shower;Cane Prior Functional Level: Within Functional Limits Prior Functional Level Comments: Pt. lives in a duplex by herself. Per patient she was independent in all self care and functional mobility prior to admission. She would occasionally use a cane or walking stick for mobility, but mostly independent. Her son and daughter do not live in the area. OBJECTIVE: Mini Cog Score: 2 (07/31/19 0946) CURRENT FUNCTIONAL STATUS: Current Functional Mobility Assist Level Additional Information Rolling Supine to Sit Sit to Supine Scooting Sit to Stand Minimal Assistance(decreased balance with initial transfer to standing) Stand to Sit Contact Guard Assistance Bed to Chair Toilet/Commode Gait Minimal Assistance Gait Device: Cane Gait Distance (feet): 50'x2 Stairs Curb Step Car Transfer Gait Deviations Right Lower Extremity: Weight bearing decreased;Stance time decreased;Heel strike during initial stance decreased;Push-off during terminal stance decreased General Gait Deviations: Antalgic gait pattern;Kaylen decreased;Lateral sway increased;Step length decreased;Arm swing decreased;Difficulty changing direction/turning;Non- functional gait speed;Loss of Balance Balance: Static Standing;Dynamic Standing Static Standing Balance: Minimal Assistance Dynamic Standing Balance: Minimal Assistance -M: 7: Walk 25 feet or more Please see discipline specific clinical documentation flowsheet for complete details for this therapy evaluation/treatment. SIGNATURE: Maco Lua PTA PATIENT NAME: Jamel Parks DATE: August 01, 2019 TIME: 3:58 PM Normal [facility] THERAPY NT HNO ID: [id number] Author: Rosalie GuerreroOtr/LSarwat Sandoval Service: Occupational Therapy Author Type: Occupational Therapist Type: Therapy (PT/OT/Speech/Resp) Filed: 08/01/2019 4:04 PM Note Text: Occupational Therapy Treatment SERVICE DATE: 08/01/2019 SERVICE TIME: 1345 to 1420 ROOM: [place] [address] Recommended Discharge Disposition: Acute Rehab Recommended Discharge Disposition Comments: Pending progress towards goals. Patient is well below baseline of independent and would benefit from intensive rehab to increase independence and safety during self care and functional mobility. Justification For Post Acute Needs: Anticipate patient will tolerate 3 hours of daily therapy at the time of admission to post-acute setting OT Recommendations to Nursing: To Bathroom for ADL?s /and or Toileting;OOB for meals;With assist of 1 person Equipment: (hand held assist) OT 6 Clicks Score: 15 Precautions/Activity Restrictions: Fall Risk;Weight Bearing Restrictions Extremity With Weight Bearing Restricted: Left Upper Extremity Left Upper Extremity Weight Bearing Status: NWB ASSESSMENT: Patient progressing well towards goals. Her functional mobility is improving and she was able to walk to the bathroom and use the toilet this session. Patient met her dynamic standing balance goal of 1 minute, goal updated below. After administering the MOCA, it was determined that the patient has a mild cognitive impairment, score below. Continue to recommend skilled OT services at d/c to increase independence and safety during self care and functional mobility. Patient Disposition at Start of Session: OOB in Chair;Call Lacy in Reach Patient Disposition at End of Session: OOB in Chair;Call Lacy in Reach Tolerated Full Session Occupational Therapy Problem List: Education Deficit;Pain;Safety Deficits;Impaired Self Care;Decreased Activity Tolerance;Decreased Range Of Motion;Decreased Strength;Functional Mobility Impairment;Balance Impaired Patient /Caregiver Goals: Go Home Goals for Plan of Care: Grooming with: Stand By Assistance Upper Body Bathing with: Stand By Assistance Upper Body Dressing with: Stand By Assistance Lower Body Bathing with: Contact Guard Assistance Lower Body Dressing with: Contact Guard Assistance Chair Transfer with: Contact Guard Assistance Toilet Transfer with: Contact Guard Assistance(to bathroom) Tolerate (minutes of functional activity): 25 Functional Activity with: Stand By Assistance Additional Goal 1: goal met Additional Goal 2: Pt. will score a 26/30 or greater on the MOCA version 1 Demonstrate Competence With Education with: Verbal Cues Only(safety with NWB status) Progress Toward Goals: Progressing as expected Rehab Potential: Good PLAN: Treatment Frequency (times per week): 5(1-5) Current admission Treatment Interventions: Education;Self Care / Home Management;Energy Conservation Training;Joint Mobility;Strengthening ;Functional Mobility Training;Balance Training Plan of Care developed with: Patient TREATMENT INTERVENTIONS: Therapy Diagnosis: Reduced mobility-other;Decreas ed activities of daily living (ADL);Muscle Weakness (generalized);Unsteadi ness on feet;General symptoms and signs-other Interventions Provided: Cognitive Training (57398 or G0515);Self Jail Management (14965) Self Jail Management (86533) Treatment Minutes: 10 1 unit Skilled Intervention(s): Educated on the role of OT in the acute care setting. Instructed on sit to stand technique with proper hand placement within NWB of LUE for increased safety and independence during functional mobility. Educated on fall prevention throughout session, as patient needed to hold onto the cooper and furniture during functional mobility and self care. Educated on energy conservation by providing increased time and rest breaks throughout the session.Facilitated toilet transfer with minimal verbal and tactile cues for proper positioning and hand placement using the grab bars and not using the LUE, for increased safety during self care. Facilitated static standing balance during gerber care for 2 minutes to increase activity tolerance and endurance needed for self care tasks. Provided cuing for hand hygiene (washing hands) while standing at the sink for increased participation and independence during self care activities. Instructed on stand to sit technique with lower extremities touching chair and reaching back for surface for increased safety during functional transfers. Cognitive Training (G0515) Treatment Minutes: 25 $ Cognitive Training (G0515) Billed Units: 1 unit Skilled Intervention(s): Facilitated the Roberto Cognitive Assessment (MOCA), score provided below. Results indicate a mild cognitive impairment in relation to language, delayed recall, and orientation. Based on results, patient would be unsafe to return home and be independent in self care and safety. Provided increased time and frequent repetitions of instructions to complete various tasks on the MOCA assessment. 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 I'm feeling a lot less sore today. Home Environment Patient Lives With: Self/Alone Assistance Available: PRN Entry To Home: Stairs;With Rail Number Of Stairs Into Home: 2 Number Of Stairs To Bed/Bath: All one floor Tub/Shower Type: Walk-in Equipment Owned: Hand Held Shower;Cane Prior Functional Level: Within Functional Limits Prior Functional Level Comments: Pt. lives in a duplex by herself. Per patient she was independent in all self care and functional mobility prior to admission. She would occasionally use a cane or walking stick for mobility, but mostly independent. Her son and daughter do not live in the area. OBJECTIVE: Cognition/Communicatio n Deficits Responsiveness: Alert Follows Commands: 2-step Commands Executive Function Deficits: Safety Awareness;Insight to Deficits;Judgement Judgement Deficit: Minimal impairment Insight to Deficits: Minimal impairment Safety Awareness Deficit: Minimal impairment Cognitive Clinical Tests and Screens: MoCA Clock Draw Test: 2-Normal Word Recall: 0-recalled words Mini Cog Score: 2 Visuospatial/executive : 5 Namin Digits: 2 Letters: 1 Subtraction: 3 Repetition: 2 Fluency: 0 Abstraction: 2 Delayed Recall: 0 Orientation: 5 Points For Educational Level: 0 MoCA Total Score (out of 30): 23 a score of greater than or equal to 26/30 is considered normal. CURRENT FUNCTIONAL STATUS: Current Activities of Daily Living Assist Level Feeding Set Up Grooming Minimal Assistance Bathing Upper Body Moderate Assistance Bathing Lower Body Moderate Assistance Dressing Upper Body Moderate Assistance Dressing Lower Body Moderate Assistance Toileting Minimal Assistance Functional Mobility Assist Level Rolling Supine to Sit Stand By Assistance Sit to Supine Stand By Assistance Scooting Stand By Assistance Sit to Stand Minimal Assistance Stand to Sit Minimal Assistance Bed to Chair Toilet/Commode Minimal Assistance Functional Mobility Minimal Assistance Hand Held Assist Functional Mobility Comments: Functional mobility to bathroom Range of Motion: Upper Extremity Comments R Upper Extremity ROM Comments: WFL L Upper Extremity ROM Comments: unable to assess due to banadage/NWB status Strength: Upper Extremity Comments Right Upper Extremity Strength Comments: 4-/5 Left Upper Extremity Strength Comments: unable to assess due to banadage/NWB Balance: Static Standing;Dynamic Standing Static Standing Balance: Minimal Assistance Dynamic Standing Balance: Minimal Assistance Activity Tolerance: Sitting Activity Sitting Activity: MOCA while sitting in chair Sitting Activity Tolerance (in minutes): 20 Please see discipline specific clinical documentation flowsheet for complete details for this therapy evaluation/treatment. SIGNATURE: Radha Orellana, S/OT PATIENT NAME: Jamel Parks DATE: August 01, 2019 TIME: 2:34 PM Evaluation and/or treatment directly supervised by licensed Occupational Therapist. I reviewed and agree with the documentation corresponding to this therapy visit. SIGNATURE: Rosalie Sandoval, OTR/L DATE: August 01, 2019 TIME: 4:04 PM Normal [facility] Basic Panelon 07-31-2019 Creatinine [Mass/Vol] 0.71 mg/dL Normal 0.51-0.95 [facility] Comment on above: Performed By: #### P 8 ####[address] [address] Glucose [Mass/Vol] 81 mg/dL Normal 70-99 [facility] Comment on above: Performed By: #### P 8 ####[address] [address] Anion gap [Moles/Vol] 13 mmol/L Normal 8-16 [facility] Comment on above: Performed By: #### P 8 ####[address] [address] Calcium [Mass/Vol] 8.3 mg/dL Low 8.5-10.1 [facility] Comment on above: Performed By: #### P 8 ####[address] [address] CO2 [Moles/Vol] 22 mmol/L Normal 21-32 [facility] Comment on above: Performed By: #### P 8 ####[address] [address] Urea nitrogen [Mass/Vol] 10 mg/dL Normal 7-18 [facility] Comment on above: Performed By: #### P 8 ####[address] [address] Chloride [Moles/Vol] 109 mmol/L High 98-107 [facility] Comment on above: Performed By: #### P 8 ####[address] [address] Potassium [Moles/Vol] 4.2 mmol/L Normal 3.5-5.1 [facility] Comment on above: Performed By: #### P 8 ####[facility] [place], [place] [address] Sodium [Moles/Vol] 140 mmol/L Normal 136-145 [facility] Comment on above: Performed By: #### P 8 ####[facility] [place], [place] [address] CASE MANAGEMon 07-31-2019 CASE MANAGEM HNO ID: [id number] Author: Minerva GuerreroRn) SALINA Guzman Service: Care Management Author Type: Registered Nurse Type: Care Mgt Progress Note Filed: 07/31/2019 2:23 PM Note Text: CARE MANAGEMENT PROGRESS NOTE SERVICE DATE: 07/31/2019 SERVICE TIME: 2:13 PM LOS: 1 day Needs Prior to Discharge: Accepting Facility;Bed Availability;Insurance Authorization;Discharg e Transportation FREEDOM OF CHOICE GIVEN: Financial Disclosure Provided The patient and/or family has been given the Provider List: Yes Provider List: Rehab Facility Discharge Plan= Acute Rehab Spoke with patient at the bedside and patient's daughter via phone. PT/OT recommend acute rehab at discharge. Patient in agreement. Patient's acute rehab choice is [facility]. [facility] notified. Awaiting acceptance. Will continue to follow clinical course for further DC planning needs. SIGNATURE: Minerva Guzman RN PATIENT NAME: Jamel Parks DATE: July 31, 2019 TIME: 2:13 PM PAGER/CONTACT #: [phone] Normal [facility] CASE MGT INIT ASSESon 2018 CASE MGT INIT ASS HNO ID: [id number] Author: Minerva GuerreroRn) SALINA Guzman Service: Care Management Author Type: Registered Nurse Type: Care Mgt Initial Assessment Filed: 07/31/2019 11:14 AM Note Text: CARE MANAGEMENT: ASSESSMENT AND DISCHARGE PLAN SERVICE DATE: 07/31/2019 SERVICE TIME: 10:56 AM PRIMARY CARE PHYSICIAN: Ajay Mcguire DO ADMISSION STATUS: Inpatient Needs Prior to Discharge: OT/PT Evaluation;Pharmacy Bedside Delivery;Wound Care 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 No Advance Directive: Current Advance Directive: None Custom Framing Specialist Attempted to Assist with AD Completion: Yes Action: Education Provided Health Literacy: 1. How often do you need to have someone help you when you read instructions, pamphlets, or other written material from your doctor or pharmacy? Never - 1 2. How confident are you filling out medical forms by yourself? Extremely - 1 If Patient scores > 3 on either question, the following interventions were put into place: Patient did not score > 3 FUNCTIONAL AND COGNITIVE/BEHAVIORAL PRIOR TO ADMISSION: Baseline Mental Status: Alert AND Oriented, Person, Place , Time, Situation and Age Appropriate Functional Status: Independent Does Patient Currently Receive Any Community Services or Home Care? None Equipment Prior to Admission: None Has the Patient Been in a [facility] Facility in the Past 30 days? No SOCIAL: Living Arrangement: Home (1 level/ 2 steps to enter) Lives With: Alone Financial Resources: Disabled Primary Contact: Extended Emergency Contact Information Primary Emergency Contact: Maira Simon Mobile Relation: Daughter Secondary Emergency Contact: Alcides Corodva Mobile Relation: Son Supportive: Yes Other Important Patient Contacts: None Caregiver Assessment: Caregiver is ready, willing and able to meet the patient's needs as recommended by the inter-professional team? Yes- Patient states her family is willing to assist as able. Will follow. Patient's transition needs and plan for meeting these needs: To be determined. PT/OT evaluation pending. Does the patient have an acute stroke diagnosis, or has the patient had a stroke during this admission? No Medication Adherence: I am convinced of the importance of my prescription medication: Agree completely - 0 I worry that my prescription medication will do more harm than good to me Disagree completely - 0 I feel financially burdened by my [id number] expenses for my prescription medication: Disagree completely - 0 Patient is categorized as low risk < 2 Are you interested in bedside delivery of your medications? Yes Food Concerns: In the Last Month, Have You had Trouble Getting Food? No trouble getting food During the Last Month, Have You Worried Whether Your Food Would Run Out Before You Had Enough Money to Buy More? No Is the Patient Psychosocially Complex? No ASSESSMENT AND PLAN: Medical Needs: Fall risk or frequent falls and Wound Care - active or potential Psychosocial Needs: None FREEDOM OF CHOICE EXPLAINED: Financial Disclosure Provided POTENTIAL TRANSITION PLANS To Be Determined Patient independent at home alone prior to admission. PT/OT evaluation pending. Will follow clinical course for DC planning needs. SIGNATURE: Minerva Guzman RN PATIENT NAME: Jamel Parks DATE: July 31, 2019 TIME: 10:56 AM PAGER/CONTACT #: [phone] Normal [facility] Hemogram/Diffon 07-31-2019 Abs Immature Grans 0.02 thou/cmm Normal 0.00-0.05 [facility] Comment on above: Performed By: #### C BCD1 ####[place] [address] Abs Neut (ANC) 4.57 thou/cmm Normal 1.56-6.13 [facility] Comment on above: Performed By: #### C BCD1 ####[place] [address] Abs. Baso 0.04 thou/cmm Normal 0.01-0.08 [facility] Comment on above: Performed By: #### C BCD1 ####[place] [address] Abs. [place] 0.44 thou/cmm Normal 0.27-0.70 [facility] Comment on above: Performed By: #### C BCD1 ####[place] [address] Basophils/100 WBC (Bld) 0.6 % Normal [facility] Comment on above: Performed By: #### C BCD1 ####[place] [address] Eosinophils (Bld) [#/Vol] 0.04 thou/cmm Normal 0.00-0.31 [facility] Comment on above: Performed By: #### C BCD1 ####[place] [id number] Eosinophils/100 WBC (Bld) 0.6 % Normal [facility] Comment on above: Performed By: #### C BCD1 ####[address] [address] Erythrocyte distribution width (RBC) [Ratio] 12.0 % Normal 11.7-14.4 [facility] Comment on above: Performed By: #### C BCD1 ####[place] [address] Hematocrit (Bld) [Volume fraction] 35.4 % Normal 34.1-44.9 [facility] Comment on above: Performed By: #### C BCD1 ####[address] [address] Hemoglobin (Bld) [Mass/Vol] 11.6 g/dL Normal 11.2-15.7 [facility] Comment on above: Performed By: #### C BCD1 ####[place] [address] Immature Grans 0.30 % Normal [facility] Comment on above: Performed By: #### C BCD1 ####[address] [address] Lymphocytes (Bld) [#/Vol] 1.26 thou/cmm Normal 1.18-3.74 [facility] Comment on above: Performed By: #### C BCD1 ####[address] [address] Lymphocytes/100 WBC (Bld) 19.8 % Normal [facility] Comment on above: Performed By: #### C BCD1 ####[address] [address] MCH (RBC) [Entitic mass] 32.0 pg Normal 25.6-32.2 [facility] Comment on above: Performed By: #### C BCD1 ####[address] [address] MCHC (RBC) [Mass/Vol] 32.8 % Normal 31.6-34.8 [facility] Comment on above: Performed By: #### C BCD1 ####[facility] [place], [place] [address] MCV (RBC) [Entitic vol] 97.5 fL High 79.4-94.8 [facility] Comment on above: Performed By: #### C BCD1 ####[address] [address] Monocytes/100 WBC (Bld) 6.9 % Normal [facility] Comment on above: Performed By: #### C BCD1 ####[address] [address] Platelet mean volume (Bld) [Entitic vol] 11.4 fL Normal 9.4-12.3 [facility] Comment on above: Performed By: #### C BCD1 ####[address] [address] Platelets (Bld) [#/Vol] 130 thou/cmm Low 182-369 [facility] Comment on above: Performed By: #### C BCD1 ####[address] [address] RBC (Bld) [#/Vol] 3.63 mil/cmm Low 3.93-5.22 [facility] Comment on above: Performed By: #### C BCD1 ####[address] [address] RDW SD 43.6 fl Normal 36.4-46.3 [facility] Comment on above: Performed By: #### C BCD1 ####[address] [address] Seg Neutrophil 71.8 % Normal [facility] Comment on above: Performed By: #### C BCD1 ####[address] [address] WBC (Bld) [#/Vol] 6.36 thou/cmm Normal 3.98-10.04 [facility] Comment on above: Performed By: #### C BCD1 ####[address] [address] MDRD GFRon 07-31-2019 GFR/1.73 sq M predicted among non-blacks MDRD (S/P/Bld) [Vol rate/Area] mL/min/{1.73_m2} Normal >60mL/min/1. 73m2 [facility] Comment on above: Result Comment: If t he patient is , multiply the result by 1.210. Performed By: #### G FR ####[facility] [place] [address] PLAN OF CAREon 07-31-2019 PLAN OF CARE HNO ID: [id number] Author: Luisa Manning (Core Blower) Service: Pharmacy Author Type: ? Type: Plan of Care Filed: 07/31/2019 11:11 AM Note Text: SKIDDER LOADER BEDSIDE DELIVERY SURVEY 1. Patient to use [facility] Bedside Delivery - YES Insurance Information as follows: 2. Insurance card on file - YES 3. Credit card for payment - N/A No prescriptions written to pt yet, please call pharmacy bedside delivery at [phone] or Ext [phone] once scripts are written and DC orders placed. Normal [facility] PROGRESSon 07-31-2019 PROGRESS HNO ID: [id number] Author: Ana Mccormick) Drain Service: Trauma Author Type: Nurse Practitioner Type: Progress Notes Filed: 07/31/2019 2:36 PM Note Text: Trauma Progress Note SERVICE DATE: 07/31/2019 SUBJECTIVE: Patient vomited x1 overnight. Denies nausea this am. Reports significant muscle soreness. Tolerating diet. OBJECTIVE: Vitals: Temp (24hrs), Av.9 ?C (98.4 ?F), Min:36.5 ?C (97.7 ?F), Max:37.2 ?C (99 ?F) BP 113/63 Pulse 64 Temp 36.8 ?C (98.2 ?F) (Temporal) Resp 16 Ht 170.2 cm (5' 7) Wt 43 kg (94 lb 14.4 oz) SpO2 99% BMI 14.86 kg/m? O2 Therapy: Room Air IANDO: Date 07/30/19699 - 07/31/19 0659 07/31/19699 - 08/01/19 0659 Shift 6319-0834 9996-9313 8858-7691 24 Hour Total 6634-2856 4506-8444 4476-7498 24 Hour Total INTAKE PO 120 120 240 250 250 PO 120 120 240 250 250 IV 145 145 NS 0.9% 145 145 Shift Total 265 120 385 250 250 OUTPUT Urine 225 523 310 3377 100 100 Void (ml) 225 161 284 3637 100 100 Urine Not Saved. 2 x 1 x 3 x Shift Total 225 504 949 1178 100 100 Weight (kg) 45.8 45.8 43 43 43 43 43 43 MEDICATIONS Current Facility-Administered Medications Medication Dose Route Frequency - acetaminophen 975 mg tab(s) (TYLENOL) 975 mg ORAL q 6 H - cyclobenzaprine 5 mg tab(s) (FLEXERIL) 5 mg ORAL TID - levETIRAcetam 1,000 mg tab(s) (KEPPRA) 1,000 mg ORAL BID - enoxaparin 30 mg injection (LOVENOX) 30 mg SUBCUTANEOUS q 12 HR - oxyCODONE IR 5 mg tab(s) (ROXICODONE) 5 mg ORAL q 4 H PRN - ondansetron (PF) 4 mg injection (ZOFRAN) 4 mg INTRAVENOUS q 6 H PRN - bacitracin-polymyxin B 500-10,000 unit/gram (POLYSPORIN) TOPICAL TID Labs: Recent Labs 07/31/19 0259 07/30/19 0401 07/29/19 2205 NA 140 140 140 K 4.2 3.4* 4.3 CHLOR 109* 111* 108* CO2 22 26 31 BUN 10 12 15 CREAT 0.71 0.69 0.81 GLUC 81 98 97 ANION 13 6* 5* CA 8.3* 7.8* 9.2 MG -- 1.9 -- P -- 2.8 -- ALB -- -- 4.0 AST -- -- 30 ALT -- -- 33 ALKPHOS -- -- 41* TBILI -- -- 0.8 WBC 6.36 6.61 11.47* HB 11.6 10.4* 13.0 HCT 35.4 30.8* 38.7 PLT 130* 131* 175* INR -- -- 1.09 PHYSICAL EXAM: Genl: Appears older than stated age. No acute distress. Resting comfortably. Head/Face: Abrasions and ecchymosis to right face. Eyes: EOMI. Sclera not icteric, not injected Neck: No mid-line masses. C-spine non-tender. Back: T AND L Spine non-tender, no step-offs noted. No flank tenderness. Resp: Lungs clear bilat. No wheezes. No rales. Breathing is non-labored on RA @99%. CVS: RRR as above; 2+ pulses at RA, DP, PT bilat. GI: Abdomen is soft, non-tender, not distended. Bowel sounds normoactive. No peritonitis. MSK: Extremities without clubbing, cyanosis, edema. Normal ROM x 4. Splint to left wrist/hand. Skin: Warm and dry. No lesions of concern. Not jaundiced. Neuro: AANDOx3. Strength, sensation, proprioception normal. GARCIAS. GCS15. Psych: Normal mood. Normal affect. Appropriate insight into current situation. ASSESSMENT AND PLAN: Active Hospital Problems Diagnosis Date Noted - Subdural hemorrhage (HCC) 07/30/2019 - Animal-rider injured by fall from or being thrown from horse in noncollision accident, initial encounter 07/30/2019 - Mild TBI (traumatic brain injury) ([facility]) 07/30/2019 - Thumb dislocation, left, initial encounter 07/30/2019 - Multiple sclerosis ([facility]) 07/30/2019 - Hypokalemia 07/30/2019 - Abrasion of anterior right lower leg 07/30/2019 54 year old female s/p fall from horse with SDH, dislocated left thumb, and abrasions Imaging performed: 1. CT HNCAPface (07/29) 2. XR chest, pelvis, L hand, R ribs 3. CT brain (07/30) Traumatic Injuries: 1. Acute interhemispheric subdural hematoma approximately 3 mm in maximal thickness 2. Left thumb dislocation Operations: 1. None Care Plan: 1. SDH 1. Repeat CT brain stable 2. Follow up in 2 weeks 3. Keppra x7 days 2. Left thumb dislocation 1. Left wrist thumb spica splint 2. F/U outpatient 1 week 3. Current diet order: DIET REGULAR 4. Pain regimen: Scheduled tylenol, flexeril; prn oxy 5. Bowel regimen: Senna-s 6. Labs: 1. WBC 6.3 form 6.6 2. Hg 11.6 from 10.4 3. Cr 0.71 from 0.69 7. Medically stable for discharge to acute rehab. PPX: 1. DVT: Lovenox, SCDs, mobilize 2. Ulcer: n/a 3. Vit D level if > 65 yo: n/a Consulted Services and Recommendations: 1. NSGY 2. Ortho Dispo Plannin. PT/OT recs Acute Rehab. Case management following. Incidentals: 1. 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 Follow Up Needs: 1. Ortho - Dr. Hunter in 1 week 2. NSGY - Dr. Nicholson in 2 weeks 3. PCP Staff Trauma Surgeon: Dr. Tracy Trauma Service Pager: For questions or concerns Mon-Fri 6a-5p please page [phone]. After 5pm and on Weekends and Holidays, please page [phone] if in ICU or [phone] if on RNF. SIGNATURE: Ana Murphy APRN.CNP PATIENT NAME: Jamel Parks DATE: July 31, 2019 TIME: 2:24 PM Pager: [phone] (text page) [facility] PROGRESS HNO ID: [id number] Author: Bunny GuerreroResSarwat Benavidez Service: Orthopaedic Surgery Author Type: Resident Type: Progress Notes Filed: 07/31/2019 5:57 AM Note Text: Orthopaedic Surgery Patient to follow up with Dr. Hunter as an outpatient within a week for further management of left MCP dislocation. Patient to call Dr. Hunter's office to schedule an outpatient appointment. No plan for orthopaedic surgical intervention at this time. Orthopaedic Surgery to sign off. Page [phone] for any questions. Bunny Benavidez 07/31/2019 0557 [facility] THERAPY NTon 07-31-2019 THERAPY NT HNO ID: [id number] Author: Jose Luis GuerreroPt) KAITY Meza Service: Physical Therapy Author Type: Physical Therapist Type: Therapy (PT/OT/Speech/Resp) Filed: 07/31/2019 2:06 PM Note Text: Physical Therapy Evaluation SERVICE DATE: 07/31/2019 SERVICE TIME: 1330 to 1353 ROOM: [place] [address] Recommended Discharge Disposition: Acute Rehab Recommended Discharge Disposition Comments: Pending progress toward goals. Pt with acute injuries and deficits in mobility, strength, dynamic balance; Short Form Patel Balance Assessment indicates increased fall risk. Pt from home alone with limited assistance and was independent prior to admission, recommend continued therapy at acute rehab to maximize functional gains toward greater independence prior to return home. Justification For Post Acute Needs: Anticipate that patient will require daily (5x/wk) skilled therapy in a post-acute facility setting at the time of acute hospital discharge;Willing to participate;Anticipate patient will tolerate 3 hours of daily therapy at the time of admission to post-acute setting PT Recommendations to Nursing: Ambulate with device;To bathroom;In halls;Transfer to/from chair;OOB for Meals;Sit at edge of bed;With assist of 1 person Device: Hand Held Assist PT 6 Clicks Score: 17 Precautions/Activity Restrictions: Fall Risk;Weight Bearing Restrictions Extremity With Weight Bearing Restricted: Left Upper Extremity Left Upper Extremity Weight Bearing Status: NWB ASSESSMENT : This patient was admitted for fall from horse, sustaining subdural hematoma, left thumb metacarpophalangeal joint dislocation, and bilateral lower extremity abrasions, has the past medical history of multiple sclerosis impacting current functional level, as well as the social factors complicating the discharge of from home alone, stairs to enter. This patient is below baseline functioning of independent and will benefit from continued skilled therapy in the hospital for treatment of the following body systems/impairments: musculoskeletal strength, ROM; neuromuscular control, coordination, balance; functional mobility including bed mobility, transfers, gait, stairs; safety awareness, fall prevention strategies, use of equipment, weight bearing precautions Patient Disposition at Start of Session: Supine in Bed;Call Lacy in Reach Patient Disposition at End of Session: Supine in Bed;Call Lacy in Reach Tolerated Full Session Physical Therapy Problem List: Pain;Safety Deficits;Impaired Self Care;Decreased Activity Tolerance;Decreased Strength;Functional Mobility Impairment;Balance Impaired;Decreased Range Of Motion Patient /Caregiver Goals: Go Home Goals for Plan of Care: Transfer supine to/from sit with: Independent Transfer sit to/from stand with: Independent Ambulate with: Independent Distance: 150 Device: Cane Ambulate up and down steps with: Supervision Number of steps: 4 Device: Rail Rehab Potential: Good PLAN: Treatment Frequency (times per week): 5(2-5) Current admission Treatment Interventions: Education;Self Care / Home Management;Strengtheni ng;Functional Mobility Training;Balance Training;Neuromuscular Re-education Plan of Care developed with: Patient TREATMENT INTERVENTIONS: Therapy Diagnosis: Reduced mobility-other;Decreas ed activities of daily living (ADL);Muscle Weakness (generalized) Interventions Provided: Evaluation;Gait Training (46384) $ Evaluation-Moderate (53180) Billed Units: 1 unit History and examination of body systems see assessment section above. This patient?s clinical presentation is evolving. The patient required a moderate complexity evaluation. Gait Training (88500) Treatment Minutes: 8 1 unit Skilled Intervention(s): Instruction in sit to stand technique with proper hand placement and body positioning at edge of bed/chair, Instruction in stand to sit technique with LE's touching chair/bed and reaching back for surface, Instruction in sequencing, gait pattern, Instruction in correction of gait deviations, Instruction in WB precautions Pt with right lower extremity lagging behind during swing, limited foot clearance. Verbal cues to increase hip and knee flexion as well as heel to toe progression of weight over right leg. Pt corrects briefly with verbal cues but requires reminders. With sit to/from stand transition pt requires frequent cues to avoid pushing through left upper extremity, educated twice on non weight bearing precautions Total Timed Code Treatment Minutes: 8 Total Treatment Time (minutes): 23 SUBJECTIVE: Current Hospital Course: Chart reviewed; presents s/p fall off her horse after it was spooked and ran out of control. Traumatic Injuries: 1. Subdural hematoma (non-surgical per neuro) 2. L thumb dislocation (non-surgical per ortho) B/l LE abrasions Reason for Physical Therapy Consult : eval Relevant Past Medical History: multiple sclerosis Patient Report: Pt pleasant and agreeable to therapy evaluation. Somewhat disagreeable to recommendation of acute rehab but appreciated explanation of why recommendation was made, concern for safety at home alone, and fall risk/safety concerns; verbalized understanding. Home Environment Patient Lives With: Self/Alone Assistance Available: PRN Entry To Home: Stairs;With Rail Number Of Stairs Into Home: 2 Number Of Stairs To Bed/Bath: All one floor Tub/Shower Type: Walk-in Equipment Owned: Hand Held Shower;Cane Prior Functional Level: Within Functional Limits Prior Functional Level Comments: Pt. lives in a duplex by herself. Per patient she was independent in all self care and functional mobility prior to admission. She would occasionally use a cane or walking stick for mobility, but mostly independent. Her son and daughter do not live in the area. OBJECTIVE: Range of Motion: WFL Strength: Lower Extremity Comments Right Lower Extremity Strength Comments: 3+/5 Left Lower Extremity Strength Comments: 4/5 Coordination Deficits: Rapid alternating movements Rapid Alternating Movements Impairment: Right CURRENT FUNCTIONAL STATUS: Current Functional Mobility Assist Level Additional Information Rolling Supine to Sit Supervision Sit to Supine Supervision Scooting Supervision Sit to Stand Contact Guard Assistance Stand to Sit Contact Guard Assistance Bed to Chair Toilet/Commode Gait Minimal Assistance Gait Device: Hand Held Assist Gait Distance (feet): 50 Stairs Curb Step Car Transfer Gait Deviations Right Lower Extremity: Heel strike during initial stance decreased;Foot clearance decreased General Gait Deviations: Step length decreased;Kaylen decreased;Lateral sway increased;Arm swing decreased;Difficulty changing direction/turning Right leg lags behind during swing with decreased foot clearance, lack of heel contact, decreased hip and knee flexion (see gait training) Balance: Static Sitting;Dynamic Sitting;Static Standing;Dynamic Standing Static Sitting Balance: Supervision Dynamic Sitting Balance: Supervision Static Standing Balance: Contact Guard Assistance Dynamic Standing Balance: Minimal Assistance Short Form Patel Balance Scale Sitting to standin Standing unsupported - eyes closed: 4 Reach forward with outstretched arm: 2 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 SIGNATURE: Jose Luis Meza PT PATIENT NAME: Jamel Parks DATE: July 31, 2019 TIME: 2:00 PM Normal [facility] THERAPY NT HNO ID: [id number] Author: Rosalie GuerreroOtr/Inocencio Sandoval Service: Occupational Therapy Author Type: Occupational Therapist Type: Therapy (PT/OT/Speech/Resp) Filed: 07/31/2019 3:40 PM Note Text: Occupational Therapy Evaluation SERVICE DATE: 07/31/2019 SERVICE TIME: 8302 to 9364 ROOM: [id number] Recommended Discharge Disposition: Acute Rehab Recommended Discharge Disposition Comments: Pending progress towards goals. Patient is well below baseline of independent and would benefit from intensive rehab to increase independence and safety during self care and functional mobility. Justification For Post Acute Needs: Anticipate patient will tolerate 3 hours of daily therapy at the time of admission to post-acute setting OT Recommendations to Nursing: Bedside Commode for Toileting;With assist of 1 person;OOB for meals;Transfer to Chair;ADL?s in chair;Edge of bed ADL?s Equipment: (hand held assist) OT 6 Clicks Score: 14 Precautions/Activity Restrictions: Fall Risk;Weight Bearing Restrictions Extremity With Weight Bearing Restricted: Left Upper Extremity Left Upper Extremity Weight Bearing Status: NWB ASSESSMENT: Patient presents with deficits in grooming, UE bathing/dressing, LE bathing/dressing, functional transfers, functional mobility, decreased safety awareness, and decreased insight to deficits after a SDH and left thumb dislocation s/p fall off a horse. Requires skilled OT to maximize independence with ADLs and functional transfers. Patient had 2 losses of balance during the session. She is very unsteady on her feet and needs frequent reminders of NWB of LUE. Patient was only able to tolerate getting to BSC at this session due to the weakness and unsteadiness of her B/L LE. Patient would benefit form continued cognitive testing with the MOCA to determine if cognitive impairments are present. Patient Disposition at Start of Session: Supine in Bed;Call Lacy in Reach Patient Disposition at End of Session: Supine in Bed;Call Lacy in Reach Tolerated Full Session Occupational Therapy Problem List: Education Deficit;Pain;Safety Deficits;Impaired Self Care;Decreased Activity Tolerance;Decreased Range Of Motion;Decreased Strength;Functional Mobility Impairment;Balance Impaired Patient /Caregiver Goals: Go Home Goals for Plan of Care: Grooming with: Stand By Assistance Upper Body Bathing with: Stand By Assistance Upper Body Dressing with: Stand By Assistance Lower Body Bathing with: Contact Guard Assistance Lower Body Dressing with: Contact Guard Assistance Chair Transfer with: Contact Guard Assistance Toilet Transfer with: Contact Guard Assistance(to BSC) Tolerate (minutes of functional activity): 25 Functional Activity with: Stand By Assistance Additional Goal 1: Pt. will demo good dynamic standing balance for 1 minute Additional Goal 2: Pt. will score a 26/30 or greater on the MOCA version 1 Demonstrate Competence With Education with: Verbal Cues Only(safety with NWB status) Rehab Potential: Good PLAN: Treatment Frequency (times per week): 5(1-5) Current admission Treatment Interventions: Education;Self Care / Home Management;Energy Conservation Training;Joint Mobility;Strengthening ;Functional Mobility Training;Balance Training Plan of Care developed with: Patient TREATMENT INTERVENTIONS: Therapy Diagnosis: Reduced mobility-other;Decreas ed activities of daily living (ADL);Muscle Weakness (generalized);Unsteadi ness on feet;General symptoms and signs-other Interventions Provided: Evaluation $ Evaluation-Moderate (35904) Billed Units: 1 unit OT Evaluation Moderate Complexity: Occupational Profile - Extended review of patient's medical record completed including patient's physical, cognitive, and psycho-social history (please see current hospital course of evaluation). Occupational Performance - Pt presents with deficits in feeding, grooming, UE bathing/dressing, LE bathing/dressing, functional transfers, functional mobility, decreased safety awareness, decreased insight into deficits Complexity in Clinical Decision Making - The extent of clinical reasoning was moderate, several treatment options present for the patient, need for modification during the evaluation was minimal/moderate, comorbidities affecting occupational performance: MS Total Treatment Time (minutes): 19 SUBJECTIVE: Current Hospital Course: Chart reviewed; presents s/p fall off her horse after it was spooked and ran out of control. Traumatic Injuries: 1. Subdural hematoma (non-surgical per neuro) 2. L thumb dislocation (non-surgical per ortho) 3. 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 How am I supposed to do anything if I can't use this arm to help me? Home Environment Patient Lives With: Self/Alone Assistance Available: PRN Entry To Home: Stairs;With Rail Number Of Stairs Into Home: 2 Number Of Stairs To Bed/Bath: All one floor Tub/Shower Type: Walk-in Equipment Owned: Hand Held Shower;Cane Prior Functional Level: Within Functional Limits Prior Functional Level Comments: Pt. lives in a duplex by herself. Per patient she was independent in all self care and functional mobility prior to admission. She would occasionally use a cane or walking stick for mobility, but mostly independent. Her son and daughter do not live in the area. OBJECTIVE: Cognition/Communicatio n Deficits Responsiveness: Alert Follows Commands: 2-step Commands Executive Function Deficits: Safety Awareness;Insight to Deficits;Judgement Judgement Deficit: Minimal impairment Insight to Deficits: Minimal impairment Safety Awareness Deficit: Minimal impairment Cognitive Clinical Tests and Screens: Mini Cog Clock Draw Test: 2-Normal Word Recall: 0-recalled words Mini Cog Score: 2 Psychosocial Deficit: Pt. became upset when she realized that she would have her arm banadaged up for her daughters wedding CURRENT FUNCTIONAL STATUS: Current Activities of Daily Living Assist Level Feeding Set Up Grooming Minimal Assistance Bathing Upper Body Moderate Assistance Bathing Lower Body Moderate Assistance Dressing Upper Body Moderate Assistance Dressing Lower Body Moderate Assistance Toileting Moderate Assistance Functional Mobility Assist Level Rolling Supine to Sit Stand By Assistance Sit to Supine Stand By Assistance Scooting Stand By Assistance Sit to Stand Minimal Assistance Stand to Sit Minimal Assistance Bed to Chair Toilet/Commode Minimal Assistance Functional Mobility Minimal Assistance Hand Held Assist Functional Mobility Comments: Functional mobility to BSC Range of Motion: Upper Extremity Comments R Upper Extremity ROM Comments: WFL L Upper Extremity ROM Comments: unable to assess due to banadage/NWB status Strength: Upper Extremity Comments Right Upper Extremity Strength Comments: 4-/5 Left Upper Extremity Strength Comments: unable to assess due to banadage/NWB Balance: Static Standing;Dynamic Standing Static Standing Balance: Minimal Assistance Dynamic Standing Balance: Minimal Assistance Please see discipline specific clinical documentation flowsheet for complete details for this therapy evaluation/treatment. SIGNATURE: Clive Maher/OT PATIENT NAME: Jamel Parks DATE: July 31, 2019 TIME: 12:01 PM Evaluation and/or treatment directly supervised by licensed Occupational Therapist. I reviewed and agree with the documentation corresponding to this therapy visit. SIGNATURE: PETERSON Nicole/L DATE: July 31, 2019 TIME: 3:40 PM Normal [facility] ALLIED HEALTHon 07-30-2019 ALLIED HEALTH HNO ID: [id number] Author: Chaplain Graves (Chaplain) Service: Spiritual Care Author Type: Chief Privacy Officer Type: Allied Health Filed: 07/29/2019 11:15 PM Note Text: SPIRITUAL CARE PROGRESS NOTE SERVICE DATE: 07/29/2019 SERVICE TIME: 10:53PM Chief Privacy Officer responded to ED for Trauma. Patient is a transfer from [place] that fell from a horse hurting herself. No family present, will call if needed . To contact the Spiritual Care Department: Please call [phone]. SIGNATURE: Chaplain Star PATIENT NAME: Jamel Parks DATE: July 29, 2019 TIME: 11:12 PM PAGER/CONTACT #: [phone] Normal [facility] Activated PTTon 07-30-2019 aPTT Coag (Bld) [Time] 21.7 s Low 23.0-32.4 [facility] Comment on above: Result Comment: Unfr actionated Heparin Therapeutic Ranges: Standard Heparin Nomogram: 53 to 78 seconds (anti-Xa level of 0.3 to 0.7 U/mL) Low Dose/ACS Nomogram: 49 to 67 seconds (anti-Xa level of 0.2 to 0.5 U/mL) Stroke Treatment Nomogram: 49 to 67 seconds (anti-Xa level of 0.2 to 0.5 U/mL) Note: The APTT therapeutic range has been determined for the current lot of laboratory APTT reagent in use throughout the [facility]. Performed By: #### A PTT #### [facility] [address] [place] [address] Alcohol, Serumon 07-30-2019 Alcohol, Serum < 3 Normal [facility] Comment on above: Performed By: #### A LC #### [facility] [address] [address] Amylase Bloodon 07-30-2019 Amylase [Catalytic activity/Vol] 81 U/L Normal 25-115 [facility] Comment on above: Performed By: #### A MY ####[place] [address] Basic Panelon 07-30-2019 Creatinine [Mass/Vol] 0.69 mg/dL Normal 0.51-0.95 [facility] Comment on above: Performed By: #### P 8 ####[facility] [place], [place] [address] Anion gap [Moles/Vol] 6 mmol/L Low 8-16 [facility] Comment on above: Performed By: #### P 8 ####[facility] [place] [address] CO2 [Moles/Vol] 26 mmol/L Normal 21-32 [facility] Comment on above: Performed By: #### P 8 ####[place] [address] Urea nitrogen [Mass/Vol] 12 mg/dL Normal 7-18 [facility] Comment on above: Performed By: #### P 8 ####[facility] [place], [place] [address] Calcium [Mass/Vol] 7.8 mg/dL Low 8.5-10.1 [facility] Comment on above: Performed By: #### P 8 ####[facility] [place], [place] [address] Glucose [Mass/Vol] 98 mg/dL Normal 70-99 [facility] Comment on above: Performed By: #### P 8 ####[facility] [place], [place] [address] Chloride [Moles/Vol] 111 mmol/L High 98-107 [facility] Comment on above: Performed By: #### P 8 ####[facility] [place], [place] [address] Potassium [Moles/Vol] 3.4 mmol/L Low 3.5-5.1 [facility] Comment on above: Performed By: #### P 8 ####[address] [address] Sodium [Moles/Vol] 140 mmol/L Normal 136-145 [facility] Comment on above: Performed By: #### P 8 ####[facility] [place], [place] [address] CONSULTon 07-30-2019 CONSULT HNO ID: [id number] Author: Zay Mcfarlane Service: General Surgery Author Type: Physician Type: Consults Filed: 07/30/2019 10:29 AM Note Text: Consult: SICU SERVICE Trauma Service Pager: For questions or concerns Mon-Fri 6a-5p please page [phone]. After 5pm and on Weekends and Holidays, please page [phone] if in ICU or [phone] if on RNF. CATEGORY: Level 2 SERVICE DATE: 07/29/2019 SERVICE TIME: 10:32 PM Subjective This is a 54 year old White female who fell of her horse after it was spooked and ran out of control. GCS 15 at scene. Denies LOC. Presented to [place] ED where a workup was done. Ct showed subdural hematoma, and dislocated L thumb with multiple abrasions on LE and face. Pt states she has L flank pain. She has R chest wall pain as well. Denies fevers, chills, CP, SOB, cough, nausea, vomiting, constipation, diarrhea, urinary problems, or other complaints. ALLERGIES Allergen Reactions - Penicillins Shortness of Breath (Not in a hospital admission) Immunization History Administered Date(s) Administered Tdap (Age 7+) 07/29/2019 PAST MEDICAL HISTORY Diagnosis Date - Multiple sclerosis (HCC) PAST SURGICAL HISTORY Procedure Laterality Date - TREAT ECTOPIC PREG,NON REMVAL 1994 Ectopic Social History Socioeconomic History Marital status: Spouse name: Not on file Number of children: Not on file Years of education: Not on file Highest education level: Not on file Occupational History Not on file Social Needs Financial resource strain: Not on file Food insecurity: Worry: Not on file Inability: Not on file Transportation needs: Medical: Not on file Non-medical: Not on file Tobacco Use Smoking status: Current Every Day Smoker Substance and Sexual Activity Alcohol use: Not on file Drug use: Not on file Sexual activity: Not on file Lifestyle Physical activity: Days per week: Not on file Minutes per session: Not on file Stress: Not on file Relationships Social connections: Talks on phone: Not on file Gets together: Not on file Attends christianity service: Not on file Active member of club or organization: Not on file Attends meetings of clubs or organizations: Not on file Relationship status: Not on file Intimate partner violence: Fear of current or ex partner: Not on file Emotionally abused: Not on file Physically abused: Not on file Forced sexual activity: Not on file Other Topics Concerns: Not on file Social History Narrative Not on file ROS: Is the patient having any pain? Yes LOCATION: L flank tenderness, LE b/l, face, R chest wall Constitutional: Negative Eye/Ear/Nose: Negative Respiratory: Negative Cardiovascular: Negative GI/Liver/Biliary: Negative Genitourinary: Negative Psychiatric: Negative Neurologic: Negative Musculoskeletal: Negative Integument: Negative Endocrine: Negative Heme/Lymph: Negative Objective PRIMARY SURVEY AIRWAY: Patent BREATHING: Breath sounds equal CIRCULATION: PT/DP 2+, Radials 2+, Femoral 2+ DISABILITY: Eye: 4=Spontaneous Verbal: 5=Oriented and Converses Motor: 6=Obeys Commands Total GCS: 15=4 Resp Rate: 10 to 29=4 Syst BP: > than 89=4 REVISED TRAUMA SCORE: 12 EXPOSE / ENVIRONMENT: Warm Blankets PROCEDURES: none SECONDARY SURVEY VITALS: BP 113/47 Pulse 83 Temp (Src) 99.1 (Oral) Resp 13 Ht 5' 7 (1.70m) Wt 106 lb (48.1kg) SpO2 98% BMI 16.60 kg/(m2). O2 Therapy: Room Air NEURO: Alert AND Oriented x 3, GCS 15, Cranial Nerves II-XII Intact, Moves All Extremities, Strength Symmetrical, No Sensory Deficits HEENT: Eyes: PERRL, conjunctiva/corneas without lesions, EOM intact, Ears: Canals without blood or CSF drainage, TMs clear, external ears without lacerations, Nose: Septum midline, no crepitus with motion, Throat: Oral mucosa without lacerations, teeth in place, tongue without lacerations, abrasion to R cheek NECK: No midline pain with palpation, No pain with active ROM, No lacerations/wounds, No JVD, Trachea midline RESPIRATORY: No crepitus, Equal Excursion, eccymosis on anterior superior chest wall with TTP on R chest wall CARDIOVASCULAR: Heart rate regular, S1S2 with no R/M/G ABDOMEN: Non-distended, No scars or lacerations, Non-tenderness or peritoneal signs, No masses or organomegaly, Bowel sounds present all quads PELVIC/PERINEAL: Normal female genitalia, Pelvis stable to palpation, No blood noted at urethra meatus, Rectal exam with positive tone and negative for blood BACK/SPINE: Thoracolumbar spinal column non-tender, No step off or deformity noted, No external injury noted EXTREMITIES: b/l abrasion on LE, L thumb deformity RADIOLOGICAL/OTHER TEST DATA: See below PRIOR TO ARRIVAL: No Loss of Consciousness IMAGES CT ABD/PEL W IVCON Final Result IMPRESSION: 1. No acute traumatic findings involving the chest, abdomen and pelvis. 2. No fracture or malalignment of the included bony structures. Membership Coordinator: [facility] Transcribe Date/Time: Jul 29 2019 10:55P Dictated by : CLAUDIA RASHID MD This examination was interpreted and the report reviewed and electronically signed by: CLAUDIA RASHID MD on Jul 29 2019 11:06PM EST CT CHEST W IVCON Final Result IMPRESSION: 1. No acute traumatic findings involving the chest, abdomen and pelvis. 2. No fracture or malalignment of the included bony structures. Membership Coordinator: [facility] Transcribe Date/Time: Jul 29 2019 10:55P Dictated by : CLAUDIA RASHID MD This examination was interpreted and the report reviewed and electronically signed by: CLAUDIA RASHID MD on Jul 29 2019 11:06PM EST XR CHEST 1V FRONTAL Final Result IMPRESSION: No radiographic evidence of acute cardiopulmonary abnormality. The lung bases are excluded from the [id number]. Membership Coordinator: [facility] Transcribe Date/Time: Jul 29 2019 10:39P Dictated by : MARISEL MEJÍA MD This examination was interpreted and the report reviewed and electronically signed by: MARISEL MEJÍA MD on Jul 29 2019 10:41PM EST XR PELVIS 1V AP Final Result IMPRESSION: Negative for fracture or malalignment of the pelvis. Membership Coordinator: [facility] Transcribe Date/Time: Jul 29 2019 10:38P Dictated by : MARISEL MEJÍA MD This examination was interpreted and the report reviewed and electronically signed by: MARISEL MEJÍA MD on Jul 29 2019 10:39PM EST US FAST (POC) ED USE ONLY (Results Pending) XR DIGIT GENERAL 3V FRONTAL/LAT/OBL LT (Results Pending) CT HN AND FACE xRAY ribs WNL Acute interhemispheric subdural hematoma, estimated to measure approximately 3 mm in maximal thickness. 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 CT ABD/PEL W IVCON Final Result IMPRESSION: 1. No acute traumatic findings involving the chest, abdomen and pelvis. 2. No fracture or malalignment of the included bony structures. Membership Coordinator: [facility] Transcribe Date/Time: Jul 29 2019 10:55P Dictated by : CLAUDIA RASHID MD This examination was interpreted and the report reviewed and electronically signed by: CLAUDIA RASHID MD on Jul 29 2019 11:06PM EST CT CHEST W IVCON Final Result IMPRESSION: 1. No acute traumatic findings involving the chest, abdomen and pelvis. 2. No fracture or malalignment of the included bony structures. Membership Coordinator: [facility] Transcribe Date/Time: Jul 29 2019 10:55P Dictated by : CLAUDIA RASHID MD This examination was interpreted and the report reviewed and electronically signed by: CLAUDIA RASHID MD on Jul 29 2019 11:06PM EST XR CHEST 1V FRONTAL Final Result IMPRESSION: No radiographic evidence of acute cardiopulmonary abnormality. The lung bases are excluded from the [id number]. Membership Coordinator: [facility] Transcribe Date/Time: Jul 29 2019 10:39P Dictated by : MARISEL MEJÍA MD This examination was interpreted and the report reviewed and electronically signed by: MARISEL MEJÍA MD on Jul 29 2019 10:41PM EST XR PELVIS 1V AP Final Result IMPRESSION: Negative for fracture or malalignment of the pelvis. Membership Coordinator: [facility] Transcribe Date/Time: Jul 29 2019 10:38P Dictated by : MARISEL MEJÍA MD This examination was interpreted and the report reviewed and electronically signed by: MARISEL MEJÍA MD on Jul 29 2019 10:39PM EST US FAST (POC) ED USE ONLY (Results Pending) XR DIGIT GENERAL 3V FRONTAL/LAT/OBL LT (Results Pending) LABS: CBC, Coags, BMP, Mg, Phos Recent Labs 07/29/19 2205 WBC 11.47* HB 13.0 HCT 38.7 PLT 175* INR 1.09 APTT 21.7* NA 140 K 4.3 CHLOR 108* CO2 31 BUN 15 CREAT 0.81 GLUC 97 CA 9.2 CSF AND Dilantin Liver Function, Amylase, AND Lipase Recent Labs 07/29/19 2205 TPROT 7.0 ALB 4.0 ALT 33 AST 30 ALKPHOS 41* TBILI 0.8 AMYLASE 81 LIPASE 127 Cardiac Enzymes ABGs Assessment/Plan DIAGNOSES: 54 yr old female with traumatic fall of horse with multiple abrasions and L thumb deformity and subdural hematoma TREATMENT/EVALUATION PLANS: Imaging performed: 1. CT HNCAP, face 2. Rib xrays 3. CXR 4. PXR Traumatic Injuries: 1. Subdural hematoma 2. L thumb dislocation 3. B/l LE abrasions Operations: 1. None 2. Ortho 1. - appreciate recs Care Plan: Neuro: CT head in AM at 0500 Neuro checks q 2 hr Head of bed to 30 keppra Pulm: pulm toilet IS CV: BP cuff, tele : Bedpan GI: No PPX indicated FEN: repleat lytes as needed NS .9 at 75 ml ID: WBC in am Heme: CBC in Am, INR Endo: NA MSK: PT/OT Prophylaxis: SCDs, LVX contraindicated T/L/D: Peripheral IVS Consults: GUILLE FRANCIS Dispo: NSICU ED DISPOSITION: To ICU FINAL INJURIES: New injuries were identified on physical exam and review of radiological studies. The Senior/Chief Resident/Attending Physician have been informed and the above plan made for injury care and disposition. SIGNATURE: Colten Najera DO PATIENT NAME: Jamel Parks DATE: July 29, 2019 TIME: 10:32 PM PAGER/CONTACT #: Trauma Service Pager: For questions or concerns Sun-Sun 6a-5p please page [phone]. After 5pm and on Weekends and Holidays, please page [phone] if in ICU or [phone] if on RNF. As above Attending Note I discussed with resident. The patient was not examined by the attending. I reviewed the resident's note. I agree with the resident's assessment and plan unless otherwise noted. See progress note 07/30/19 Signature: Zay Mcfarlane MD Date: 07/30/2019. Time: 10:29 AM Normal [facility] CONSULT HNO ID: [id number] Author: Bunny Benavidez Service: Orthopaedic Surgery Author Type: Resident Type: Consults Filed: 07/30/2019 9:07 AM Note Text: ORTHOPAEDIC SURGERY CONSULT Pt: JAMEL PARKS Date of Consultation: 07/29/2019 Physician Consulted: Dr. Hunter Reason for Consultation: Left thumb MCP dislocation HPI: 54 year old left hand dominant female presented to [facility] ED as a transfer from [place] ED s/p fall from horse with orthopaedics being consulted for a left thumb MCP dislocation. Patient states that she was riding on her horse when the horse became spooked. The horse began to gallop quickly and the patient eventually fell off the horse. Patient fell on her head and arm, but does not completely remember how she fell. Patient is unsure if she lost consciousness. Patient states that she has minimal pain in her left hand. She denies pain in any other location. Patient denies any numbness or tingling in the hand. While patient was at [place] ED, they attempted to reduce the left thumb MCP dislocation without success and placed her into a thumb spica splint prior to transfer Patient is currently on disability for history of MS. PAST MEDICAL HISTORY Diagnosis Date - Multiple sclerosis (HCC) PAST SURGICAL HISTORY Procedure Laterality Date - TREAT ECTOPIC PREG,NON REMVAL 1994 Ectopic Allergies: Penicillins Current Facility-Administered Medications: iv contrast (radiology procedure) INTRAVENOUS DIRECTED PRN iv contrast (radiology procedure) INTRAVENOUS DIRECTED PRN bacitracin-polymyxin B 500-10,000 unit/gram (POLYSPORIN) TOPICAL TID Current Outpatient Medications: COPAXONE 20 MG SUBQ KIT Inject one syringe under the skin daily. VITAMIN D 400 UNIT TAB Take one(1) tablet daily. FAMILY HISTORY Problem Relation Age of Onset - Breast Cancer Sister - Arthritis Sister - Heart Father - Hypertension Father Negative for family history of bleeding and clotting disorders. Social History Socioeconomic History Marital status: Spouse name: Not on file Number of children: Not on file Years of education: Not on file Highest education level: Not on file Occupational History Not on file Social Needs Financial resource strain: Not on file Food insecurity: Worry: Not on file Inability: Not on file Transportation needs: Medical: Not on file Non-medical: Not on file Tobacco Use Smoking status: Current Every Day Smoker Substance and Sexual Activity Alcohol use: Not on file Drug use: Not on file Sexual activity: Not on file Lifestyle Physical activity: Days per week: Not on file Minutes per session: Not on file Stress: Not on file Relationships Social connections: Talks on phone: Not on file Gets together: Not on file Attends christianity service: Not on file Active member of club or organization: Not on file Attends meetings of clubs or organizations: Not on file Relationship status: Not on file Intimate partner violence: Fear of current or ex partner: Not on file Emotionally abused: Not on file Physically abused: Not on file Forced sexual activity: Not on file Other Topics Concerns: Not on file Social History Narrative Not on file ROS: 10 pt ROS neg except in HPI O: Vitals: BP (!) 113/47 Pulse 83 Temp 37.3 ?C (99.1 ?F) (Oral) Resp 13 Ht 170.2 cm (5' 7) Wt 48.1 kg (106 lb) SpO2 98% BMI 16.60 kg/m? Physical exam: General: AANDO x 3; NAD. Cooperative throughout entire interview Left Upper Extremity: No open wound, lacerations or areas of ecchymosis. NTTP over wrist, forearm, elbow, arm, shoulder and clavicle. TTP of left thumb MCP joint Gross deformity of left thumb MCP joint Motor intact M/R/U/Ax SILT M/R/U/Ax Radial pulse palpable. Brisk capillary refill all digits. Compartments soft, compressible. Tolerates passive stretch of digits. After reduction, left thumb MCP joint demonstrated gross instability in all directions Labs: BMP: Sodium 140 07/29/2019 Potassium 4.3 07/29/2019 Chloride 108 07/29/2019 CO2 31 07/29/2019 BUN 15 07/29/2019 Creatinine 0.81 07/29/2019 Glucose 97 07/29/2019 CBC: WBC 11.47 07/29/2019 HGB 13.0 07/29/2019 Hematocrit 38.7 07/29/2019 Platelet Count 175 07/29/2019 COAGS: APTT 21.7 07/29/2019 INR 1.09 07/29/2019 SED RATE/CRP: No results found for this basename: wsr:*,crp:* Imaging: -XR of the left thumb prereduction obtained, reviewed, and demonstrates a left thumb metacarpophalangeal joint dorsal dislocation. No other acute bony abnormalities noted. XR of the left thumb postreduction obtained, reviewed, and demonstrates adequate reduction of left thumb metacarpophalangeal joint as seen in prior xray. No other acute bony abnormalities noted. Procedure Note: The risks/limitations/bene fits/alternatives were discussed with the patient. The patient agreed to continue with reduction of left thumb MCP joint. Timeout performed. Site for reduction of left thumb MCP joint identified, marked and sterilely prepped. 10cc of 1% lidocaine was injected into the base of the thumb as a digital block. After adequate anesthesia, left thumb MCP joint was reduced and placed into a thumb spica splint. Postreduction xrays were obtained to confirm adequate reudction. Patient tolerated procedure well without dislocation A/P: 54 year old female with left thumb MCP dislocation - Medical management per primary - Pain control per primary - Left thumb spica splint in place, maintain - NWB LUE - Ice/elevate LUE - No orthopaedic surgical intervention planned at this time - Patient to follow up with Dr. Hunter as an outpatient for further management of left MCP dislocation which likely has associated ligamentous injuries - Patient to be discussed with Dr. Hunter with plan adjusted accordingly Bunny Benavidez MD Orthopaedic Surgery 07/29/2019 11:15 PM Normal [facility] CONSULT HNO ID: [id number] Author: Montez Nicholson Service: General Surgery Author Type: Physician Type: Consults Filed: 07/30/2019 5:35 PM Note Text: CONSULT: Neurosurgery SERVICE SERVICE DATE: 07/29/2019 SERVICE TIME: 11:15 PM 07/29/2019 REASON FOR CONSULT: subdural hematoma REQUESTING PHYSICIAN: Dr. Tracy PRIMARY CARE PHYSICIAN: Ajay Mcguire, DO Subjective This is a 54 year old White female who is not on blood thinners fell of her horse after it was spooked and ran out of control. GCS 15 at scene. Denies LOC. Presented to [place] ED where a workup was done. Ct showed subdural hematoma, and dislocated L thumb with multiple abrasions on LE and face. Pt states she has L flank pain. She has R chest wall pain as well. Denies fevers, chills, CP, SOB, cough, nausea, vomiting, constipation, diarrhea, urinary problems, or other complaints. she is neuro intact. ? FUNCTIONAL STATUS: Independent PAST MEDICAL HISTORY Diagnosis Date - Multiple sclerosis (HCC) PAST SURGICAL HISTORY Procedure Laterality Date - TREAT ECTOPIC PREG,NON REMVAL 1994 Ectopic FAMILY HISTORY Problem Relation Age of Onset - Breast Cancer Sister - Arthritis Sister - Heart Father - Hypertension Father Social History Tobacco Use - Smoking status: Current Every Day Smoker Substance Use Topics - Alcohol use: Not on file - Drug use: Not on file (Not in a hospital admission) Current Facility-Administered Medications Medication Dose Route Frequency - iv contrast (radiology procedure) INTRAVENOUS DIRECTED PRN - iv contrast (radiology procedure) INTRAVENOUS DIRECTED PRN - bacitracin-polymyxin B 500-10,000 unit/gram (POLYSPORIN) TOPICAL TID Allergies As of Date: 07/29/2019 Allergen Noted Reaction PENICILLINS 01/18/2007 Shortness of Breath Fully Assessed 07/29/2019 COMPLETE REVIEW OF SYSTEMS: Is the patient having any pain? Yes LOCATION: L flank tenderness, LE b/l, face, R chest wall Constitutional: Negative Eye/Ear/Nose: Negative Respiratory: Negative Cardiovascular: Negative GI/Liver/Biliary: Negative Genitourinary: Negative Psychiatric: Negative Neurologic: Negative Musculoskeletal: Negative Integument: Negative Endocrine: Negative Heme/Lymph: Negative Objective PHYSICAL EXAM: Physical Exam Performed: NEURO: Alert AND Oriented x 3, GCS 15, Cranial Nerves II-XII Intact, Moves All Extremities, Strength Symmetrical, No Sensory Deficits HEENT: Eyes: PERRL, conjunctiva/corneas without lesions, EOM intact, Ears: Canals without blood or CSF drainage, TMs clear, external ears without lacerations, Nose: Septum midline, no crepitus with motion, Throat: Oral mucosa without lacerations, teeth in place, tongue without lacerations, abrasion to R cheek NECK: No midline pain with palpation, No pain with active ROM, No lacerations/wounds, No JVD, Trachea midline RESPIRATORY: No crepitus, Equal Excursion, eccymosis on anterior superior chest wall with TTP on R chest wall CARDIOVASCULAR: Heart rate regular, S1S2 with no R/M/G ABDOMEN: Non-distended, No scars or lacerations, Non-tenderness or peritoneal signs, No masses or organomegaly, Bowel sounds present all quads PELVIC/PERINEAL: Normal female genitalia, Pelvis stable to palpation, No blood noted at urethra meatus, Rectal exam with positive tone and negative for blood BACK/SPINE: Thoracolumbar spinal column non-tender, No step off or deformity noted, No external injury noted EXTREMITIES: b/l abrasion on LE, L thumb deformity BP 113/47 Pulse 83 Temp (Src) 99.1 (Oral) Resp 13 Ht 5' 7 (1.70m) Wt 106 lb (48.1kg) SpO2 98% BMI 16.60 kg/(m2). O2 Therapy: Room Air DATA: Diagnostic tests reviewed for today's visit: Most recent labs and imaging results. Impression/Recommendat ions - NPO, IVF - repeat CT H in am - am labs - IS - pain control - neuro checks - bedrest - head of bed to 30 - keppra The patient's images and neurological exam were discussed with the neurosurgery attending, Dr. Nicholson at 2315 and the above plan reflects their recommendations. Attending Neurosurgeon Note: I saw and examined pt at 8;00 a.m. Today and agree with the note above. The pt has no focal Neuro deficit. CT showed a small interhemispheric SDH that did not expand on the repeat scan. No surgical intervention required. Montez Nicholson MD SIGNATURE: Colten Najera DO PATIENT NAME: Jamel Parks DATE: July 29, 2019 TIME: 11:14 PM PAGER: Normal [facility] CONSULT PROGon 07-30-2019 CONSULT PROG HNO ID: [id number] Author: Deanna Sheehan Service: Neurosurgery Author Type: Nurse Practitioner Type: Consult Progress Note Filed: 07/30/2019 12:16 PM Note Text: PROGRESS NOTE NEUROSURGERY SERVICE DATE: 07/30/2019 SERVICE TIME: 0840 Subjective INTERVAL HPI 54 yo female s/p fall and injury from horse. Pt states her horse was 'spooked' and booted her off, then she was drug and kicked. Today she denies MILLER, vision changes, seizures, nausea. States she is 'sore all over' Current Facility-Administered Medications Medication Dose Route Frequency - bacitracin-polymyxin B 500-10,000 unit/gram (POLYSPORIN) TOPICAL TID - oxyCODONE IR 5-10 mg tab(s) (ROXICODONE) 5-10 mg ORAL q 6 H PRN - magnesium sulfate in sterile water 4 g iv piggyback 4 g INTRAVENOUS ONCE - acetaminophen 975 mg tab(s) (TYLENOL) 975 mg ORAL q 6 H PRN - potassium chloride 80-120 mEq oral liquid 80-120 mEq ORAL/FEEDING TUBE PRN - potassium chloride iv piggyback 20 mEq/100 mL 20 mEq INTRAVENOUS PRN - magnesium sulfate in water 2 g in sterile water 50 ml 2 g INTRAVENOUS PRN - sodium phosphate 45 mmol in NaCl 0.9% 250 mL 45 mmol INTRAVENOUS PRN - calcium gluconate 4 g in NaCl 0.9% 250 mL 4 g INTRAVENOUS PRN - levETIRAcetam 1,000 mg tab(s) (KEPPRA) 1,000 mg ORAL BID - enoxaparin 30 mg injection (LOVENOX) 30 mg SUBCUTANEOUS q 12 HR Objective Physical Exam Performed: General - calm, pleasant Resp - even unlabored GI - abdomen soft NT, ND Skin - multiple abrasions and bruises Neuro - A+O x3, PERRL, makes eye contact, speech clear, cranial nerves 2-12 normal and intact, GARCIAS, strength 4/5 BUE and BLE VITAL SIGNS 24 HOUR REVIEW: Patient Vitals for the past 24 hrs: BP Temp Temp src Pulse Resp SpO2 Height Weight 07/30/19 1100 94/56 ? ? 64 11 100 % ? ? 07/30/19 1000 104/57 ? ? 64 11 100 % ? ? 07/30/19 0900 (!) 86/49 ? ? (!) 56 12 99 % ? ? 07/30/19 0800 94/58 ? ? (!) 57 13 100 % ? ? 07/30/19 0605 93/55 36.4 ?C (97.6 ?F) Oral (!) 55 12 97 % ? ? 07/30/19 0600 (!) 85/46 ? ? (!) 58 13 96 % ? ? 07/30/19 0530 98/54 ? ? 67 11 99 % ? ? 07/30/19 0500 96/53 ? ? 65 11 97 % ? ? 07/30/19 0430 100/62 ? ? (!) 58 14 97 % ? ? 07/30/19 0400 108/62 ? ? 67 14 99 % ? ? 07/30/19 0345 103/58 ? ? 64 13 99 % ? ? 07/30/19 0330 100/76 ? ? 83 19 98 % ? ? 07/30/19 0315 96/54 ? ? 71 14 96 % ? ? 07/30/19 0300 107/62 ? ? 76 13 98 % ? ? 07/30/19 0245 110/66 ? ? 66 14 99 % ? ? 07/30/19 0230 100/76 ? ? 73 13 99 % ? ? 07/30/19 0215 109/63 ? ? 67 14 100 % ? ? 07/30/19 0200 115/67 ? ? 69 13 99 % ? ? 07/30/19 0145 110/71 ? ? 70 15 100 % ? ? 07/30/19 0130 113/56 ? ? 71 14 99 % ? ? 07/30/19 0115 120/63 ? ? 70 17 100 % ? ? 07/30/19 0100 108/75 ? ? 79 14 98 % ? ? 07/30/19 0045 100/69 ? ? 69 13 99 % ? ? 07/30/19 0031 ? 45.8 kg (100 lb 15.5 oz) 07/30/19 0030 112/59 37.6 ?C (99.6 ?F) Oral 76 15 99 % ? ? 07/29/192255 (!) 113/47 ? ? 83 13 98 % ? ? 07/29/196 ? ? ? (!) 91 17 98 % ? ? 07/29/192225 91/75 ? 07/29/198 93/62 ? 07/29/192216 ? ? ? 65 14 97 % ? ? 07/29/192214 ? 37.3 ?C (99.1 ?F) Oral ? 07/29/192206 ? 170.2 cm (5' 7) 48.1 kg (106 lb) 07/29/192203 110/64 ? 07/29/192201 ? 100 % ? ? 07/29/192200 ? (!) 93 % ? ? DATA: Diagnostic tests reviewed for today's visit: Ct brain - images reviewed - Stable SDH falx Assessment/Plan Active Problems: Subdural hemorrhage (HCC) POA: Yes Assessment AND Plan: CT unchanged, Neurologically stable Non surgical mgmt BP control PT/OT Ok to transfer to floor Med mgmt per trauma Fu with DR Nicholson in 2 weeks D/w attending Will sign off Resolved Problems: * No resolved hospital problems. * Medication and Non-Pharmacologic VTE 07/30/19 1045 activity - mobilize patient (ma,oh) 07/30/19 0015 vte pharmacologic prophylaxis contraindicated (ma,ok) 07/30/19 0015 pneumatic compression stockings (ma,ok) VTE Prophylaxis: VTE prophylaxis appropriate SIGNATURE: Deanna Sheehan APRN.CNP PATIENT NAME: Jamel Parks DATE: July 30, 2019 TIME: 12:09 PM PAGER/CONTACT #: [phone] Normal [facility] CT ABD/PEL W IVCONon 019 CT ABD/PEL W IVCON * * *Final Report* * * DATE OF EXAM: Jul 29 2019 10:36PM [facility] 0530 - CT ABD/PEL W IVCON / PROCEDURE REASON: Abdomen-pelvis trauma, moderate, blunt * * * * Physician Interpretation * * * * CT OF CHEST, ABDOMEN AND PELVIS WITH CONTRAST CLINICAL HISTORY: Abdomen-pelvis trauma, moderate, blunt (accession [id number]), Chest trauma, blunt (accession [id number]) TRAUMA II TRANSFER- FALL OFF HORSE TECHNIQUE: Routine helical scanning of the chest, abdomen and pelvis after IV contrast administration. Contrast: IV: 100 ml of Omnipaque 300 Oral: None. CT Radiation dose: Integrated Dose-length product (DLP) for this visit = 441 mGy*cm. CT Dose Reduction Employed: Automated exposure control. COMPARISON: None available. RESULT: CHEST: Lower neck: Negative. Mediastinum: No hematoma, mass, adenopathy or pericardial fluid. Great vessels are negative. Lungs/pleura: Clear. No pneumothorax or pleural effusion. Chest wall: Intact. ABDOMEN: Peritoneum/mesentery: There is no free intraperitoneal air or significant free fluid. Abdominal wall: Intact. Liver: Normal. Biliary: Normal. Spleen: Normal. Pancreas: Normal. Kidneys/urinary: Left lower pole cysts. No renal laceration or hematoma. Adrenals: Normal. GI tract: Negative. Lymph nodes: Negative. Vasculature: Unremarkable. Pelvis: No mass or fluid collection. Bones/soft tissue: No acute fracture or malalignment of the included bony structures. IMPRESSION: 1. No acute traumatic findings involving the chest, abdomen and pelvis. 2. No fracture or malalignment of the included bony structures. Membership Coordinator: PSCB Transcribe Date/Time: Jul 29 2019 10:55P Dictated by : CLAUDIA RASHID MD This examination was interpreted and the report reviewed and electronically signed by: CLAUDIA RASHID MD on Jul 29 2019 11:06PM EST Normal [facility] CT BRAIN WO IVCONon 07-30-[address] BRAIN WO IVCON * * *Final Report* * * DATE OF EXAM: Jul 30 2019 5:24AM [facility] 0504 - CT BRAIN WO IVCON / PROCEDURE REASON: Head trauma, subacute-chronic, new neuro deficit * * * * Physician Interpretation * * * * EXAMINATION: CT BRAIN WITHOUT IV CONTRAST CLINICAL HISTORY: Head trauma, subacute-chronic, new neuro deficit. TECHNIQUE: Serial axial images without IV contrast were obtained from the vertex to the foramen magnum. MQ: [id number] CT Dose-Length Product (DLP): 816 mGy*cm CT Dose Reduction Employed: Iterative recon COMPARISON: CT head 07/29/1919: 32. RESULT: Post-operative change: None. Acute change: No evidence of an acute infarct or other acute parenchymal process. Hemorrhage: Minimal acute subdural hemorrhage again noted along the interhemispheric falx that appears unchanged in size. No other evidence of intracranial hemorrhage. Mass Lesion / Mass Effect: There is no evidence of an intracranial mass or extraaxial fluid collection. No significant mass effect. Chronic change: Encephalomalacia again noted in the medial right frontal lobe and medial left occipital lobe. Parenchyma: There is no significant volume loss. The brain parenchyma is otherwise within normal limits for age. Ventricles: The ventricles are within normal limits of size and configuration for age. Paranasal sinuses and skull base: The visualized paranasal sinuses are grossly clear. The skull base and imaged soft tissues are unremarkable. IMPRESSION: Stable appearance of minimal subdural hemorrhage along the interhemispheric falx. 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 Membership Coordinator: FRANCIE Transcribe Date/Time: Jul 30 2019 7:13A Dictated by : KHOA MONTERO MD This examination was interpreted and the report reviewed and electronically signed by: KHOA MONTERO MD on Jul 30 2019 7:17AM EST Normal [facility] CT CHEST W IVCONon 09-04-[address] CHEST W IVCON * * *Final Report* * * DATE OF EXAM: Jul 29 2019 10:36PM [facility] 0539 - CT CHEST W IVCON / PROCEDURE REASON: Chest trauma, blunt * * * * Physician Interpretation * * * * CT OF CHEST, ABDOMEN AND PELVIS WITH CONTRAST CLINICAL HISTORY: Abdomen-pelvis trauma, moderate, blunt (accession [id number]), Chest trauma, blunt (accession [id number]) TRAUMA II TRANSFER- FALL OFF HORSE TECHNIQUE: Routine helical scanning of the chest, abdomen and pelvis after IV contrast administration. Contrast: IV: 100 ml of Omnipaque 300 Oral: None. CT Radiation dose: Integrated Dose-length product (DLP) for this visit = 441 mGy*cm. CT Dose Reduction Employed: Automated exposure control. COMPARISON: None available. RESULT: CHEST: Lower neck: Negative. Mediastinum: No hematoma, mass, adenopathy or pericardial fluid. Great vessels are negative. Lungs/pleura: Clear. No pneumothorax or pleural effusion. Chest wall: Intact. ABDOMEN: Peritoneum/mesentery: There is no free intraperitoneal air or significant free fluid. Abdominal wall: Intact. Liver: Normal. Biliary: Normal. Spleen: Normal. Pancreas: Normal. Kidneys/urinary: Left lower pole cysts. No renal laceration or hematoma. Adrenals: Normal. GI tract: Negative. Lymph nodes: Negative. Vasculature: Unremarkable. Pelvis: No mass or fluid collection. Bones/soft tissue: No acute fracture or malalignment of the included bony structures. IMPRESSION: 1. No acute traumatic findings involving the chest, abdomen and pelvis. 2. No fracture or malalignment of the included bony structures. Membership Coordinator: PSCB Transcribe Date/Time: Jul 29 2019 10:55P Dictated by : CLAUDIA RASHID MD This examination was interpreted and the report reviewed and electronically signed by: CLAUDIA RASHID MD on Jul 29 2019 11:06PM EST Normal [facility] Comprehensive Panelon 2018 ALP [Catalytic activity/Vol] 41 U/L Low 45-117 [facility] Comment on above: Performed By: #### P 14 ####[address] [address] Bilirubin [Mass/Vol] 0.8 mg/dL Normal 0.2-1.0 [facility] Comment on above: Performed By: #### P 14 ####[address] [address] Protein [Mass/Vol] 7.0 g/dL Normal 6.4-8.2 [facility] Comment on above: Performed By: #### P 14 ####[address] [address] ALT [Catalytic activity/Vol] 33 U/L Normal 12-78 [facility] Comment on above: Performed By: #### P 14 ####[facility] [place], [place] [address] AST [Catalytic activity/Vol] 30 U/L Normal 15-37 [facility] Comment on above: Performed By: #### P 14 ####[address] [address] Creatinine [Mass/Vol] 0.81 mg/dL Normal 0.51-0.95 [facility] Comment on above: Performed By: #### P 14 ####[facility] [place], [place] [address] Albumin [Mass/Vol] 4.0 g/dL Normal 3.4-5.0 [facility] Comment on above: Performed By: #### P 14 ####[facility] [place], [place] [address] Anion gap [Moles/Vol] 5 mmol/L Low 8-16 [facility] Comment on above: Performed By: #### P 14 ####[facility] [place], [place] [address] CO2 [Moles/Vol] 31 mmol/L Normal 21-32 [facility] Comment on above: Performed By: #### P 14 ####[address] [address] Glucose [Mass/Vol] 97 mg/dL Normal 70-99 [facility] Comment on above: Performed By: #### P 14 ####[address] [address] Urea nitrogen [Mass/Vol] 15 mg/dL Normal 7-18 [facility] Comment on above: Performed By: #### P 14 ####[address] [address] Calcium [Mass/Vol] 9.2 mg/dL Normal 8.5-10.1 [facility] Comment on above: Performed By: #### P 14 ####[address] [address] Chloride [Moles/Vol] 108 mmol/L High 98-107 [facility] Comment on above: Performed By: #### P 14 ####[address] [address] Potassium [Moles/Vol] 4.3 mmol/L Normal 3.5-5.1 [facility] Comment on above: Performed By: #### P 14 ####[address] [address] Sodium [Moles/Vol] 140 mmol/L Normal 136-145 [facility] Comment on above: Performed By: #### P 14 ####[facility] [place], [place] [address] [facility] Troponin Ion 07-30-2019 Troponin I.cardiac [Mass/Vol] ng/mL Normal 0.015-0.045 [facility] Comment on above: Performed By: #### E RTRP ####[address] [address] ED NOTEon 07-30-2019 ED NOTE HNO ID: [id number] Author: Liam Douglass RN Service: Emergency Medicine Author Type: Registered Nurse Type: ED Notes Filed: 07/29/2019 11:06 PM Note Text: bacitracin applied to face and abrasion on face per trauma resident [facility] ED NOTE HNO ID: [id number] Author: Liam Douglass RN Service: Emergency Medicine Author Type: Registered Nurse Type: ED Notes Filed: 07/29/2019 10:48 PM Note Text: ED xray notified [facility] ED NOTE HNO ID: [id number] Author: Liam Douglass RN Service: Emergency Medicine Author Type: Registered Nurse Type: ED Notes Filed: 07/29/2019 10:41 PM Note Text: Ortho at bedside to reduce left thumb [facility] ED NOTE HNO ID: [id number] Author: Liam Douglass RN Service: Emergency Medicine Author Type: Registered Nurse Type: ED Notes Filed: 07/29/2019 10:35 PM Note Text: Patient returned to the Emergency Department. [facility] ED NOTE HNO ID: [id number] Author: Rodríguez Kaur (Pharmacist) Service: Pharmacy Author Type: Pharmacist Type: ED Notes Filed: 07/29/2019 10:25 PM Note Text: Pharmacy Trauma PATIENT NAME: Jamel Parks SERVICE DATE: 07/29/2019 SERVICE TIME: 10:24 PM Pharmacy attended a trauma on 07/29/2019 at 2150. The physician receiving the trauma was Dr. Gomez and Dr. Morin. Allergies: ALLERGIES Allergen Reactions - Penicillins Shortness of Breath The following medications were ordered in the Emergency Department during the initial trauma assessment: - Medication: fentanyl - Dose: 50 mcg IVP - Freq: x1 No additional comments at this time. Please call with any further issues or questions. Electronic Signature: SASHA AGUILAR Pager/Extension: [phone] [facility] ED NOTE HNO ID: [id number] Author: Liam (Rn) SALINA Douglass Service: Emergency Medicine Author Type: Registered Nurse Type: ED Notes Filed: 07/29/2019 10:18 PM Note Text: Patient transported to MT WITH TRAUMA TEAM AND RN [facility] ED NOTE HNO ID: [id number] Author: Naa Menjivar Service: ? Author Type: ? Type: ED Notes Filed: 07/29/2019 10:00 PM Note Text[facility]: 07/29/19 Expected time: 10:01 PM Means of arrival: [facility] Comments: [facility] ED PROV NOTEon 07-30-2019 ED PROV NOTE HNO ID: [id number] Author: Alcides Morin DO Service: Emergency Medicine Author Type: Physician Type: ED Provider Notes Filed: 08/08/2019 7:21 AM Note Text: ED Provider Note Patient Name: Jamel Parks SERVICE DATE: 07/29/19 History Patient presents with: Trauma II Patient is a 54-year-old female with a history of multiple sclerosis presenting to the emergency department as a trauma category 2 transfer from [facility]. Patient suffered a fall from her horse. She did hit her head. She denies loss of consciousness. She is complaining of facial pain, left thumb pain and right chest wall pain. She received fentanyl for her pain and outside ED and tetanus booster was given. She is not on anticoagulation. Imaging studies performed at outside ED reveal subdural hematoma and left thumb dislocation. PAST MEDICAL HISTORY Diagnosis Date - Multiple sclerosis (HCC) PAST SURGICAL HISTORY Procedure Laterality Date - TREAT ECTOPIC PREG,NON REMVAL 1994 Ectopic FAMILY HISTORY Problem Relation Age of Onset - Breast Cancer Sister - Arthritis Sister - Heart Father - Hypertension Father Social History Tobacco Use - Smoking status: Current Every Day Smoker Substance and Sexual Activity - Alcohol use: Not on file - Drug use: Not on file - Sexual activity: Not on file ALLERGIES Allergen Reactions - Penicillins Shortness of Breath Review of Systems Unable to perform ROS: Acuity of condition HENT: Positive for dental problem. Gastrointestinal: Negative for abdominal pain and vomiting. Musculoskeletal: Negative for back pain and neck pain. Skin: Positive for wound. Neurological: Positive for headaches. Negative for light-headedness. Physical Exam BP 110/64 Temp (Src) 99.1 (Oral) Ht 5' 7 (1.70m) Wt 106 lb (48.1kg) SpO2 100% BMI 16.60 kg/(m2). Physical Exam Constitutional: She is oriented to person, place, and time. She appears well-developed and well-nourished. HENT: Head: Normocephalic. Blood in the nares bilaterally. No septal hematoma or septal deviation. Left central and lateral incisor missing Eyes: Pupils are equal, round, and reactive to light. Conjunctivae and EOM are normal. Neck: Trachea midline. No midline c-spine or paraspinal tenderness. No step offs or deformities. Cardiovascular: Normal rate, regular rhythm, normal heart sounds and intact distal pulses. Pulmonary/Chest: Effort normal and breath sounds normal. Breath sounds equal bilaterally. Airway intact. Abdominal: Soft. Bowel sounds are normal. She exhibits no distension. There is no tenderness. Genitourinary: Genitourinary Comments: Rectal tone intact. Musculoskeletal: Left thumb deformity. No midline T or L-spine tenderness. No step offs or deformities. Neurological: She is alert and oriented to person, place, and time. GCS 15. Wiggles fingers and toes. Skin: Superficial abrasions to the forehead, bridge of nose and right cheek. Ecchymosis present on right chest wall. Nursing note and vitals reviewed. Diagnostic Testing ED Labs Ordered and Reviewed - No data to display Procedures ED Course / Clinical Impression Clinical Impressions as of Aug 02 19 Subdural hematoma (HCC) Dislocation of left thumb, initial encounter Fall from horse, initial encounter MDM / Disposition / Plan MDM Primary survey: Airway intact, speaking in full sentences. Breath sounds equal bilaterally. Strong DP/femoral/radial pulses. Able to wiggle fingers and toes. AANDOx 3. GCS 15. ? Intervention: IV access obtained, landscape engineer, LR. ? Secondary survey: See above. ? CXR and pelvis x-ray obtained in the trauma bay, negative for traumatic injury. CTA/P and chest negative for acute injury. ? Treating pain as needed. Ortho reduced thumb at bedside. Trauma team would like to admit the patient. Patient admitted in stable condition. SIGNATURE: Mariposa Gomez DO Attending Note I personally saw and examined the patient. I reviewed the resident's note. I agree with the resident's assessment and plan unless otherwise noted. This is a 54 year old female presenting with transfer from [place] after fall from a horse. Patient has a history of MS. Patient did hit her head but denied loss of consciousness. Complained of facial pain as well as pain in her left thumb and right chest wall. On initial workup found to have a small subdurals transferred for trauma evaluation.. Physical Exam: Primary survey Airway patent without signs of distress Breathing even and unlabored with symmetrical breath sounds bilaterally Circulation symmetrical pulses present throughout all extremities Secondary survey Head normocephalic blood in nares bilaterally no septal hematoma. Facial abrasions present. HEENT front incisors missing no other signs of intraoral trauma Heart regular no murmurs rubs or gallops Lungs clear Chest no crepitus Abdomen soft nontender good bowel sounds no guarding or rebound Extremity exam shows left thumb deformity Neuro awake alert oriented ?3 no focal deficits. Follows commands all 4 extremities Plan patient evaluated as trauma team. Orthopedics consult and for her. Thumb dislocation. Patient will be admitted for further management Critical Care I spent a total of 35 minutes of critical care time in the evaluation and management of this patient. This was necessary to treat or prevent deterioration of the following condition(s): Multiple trauma, which the patient had and/or has a high probability of suddenly developing. The patient received trauam team during the time that critical care was provided.I discussed the plan of care with the Resident and agree with the findings documented. Critical care time excludes separately billed procedures. DO Mariposa Alcala Res, DO Resident 08/02/19 0024 Alcides Morin DO 08/08/19 0720 Alcides Morin DO 08/08/19 0721 Normal [facility] HISTORY PHYSICALon HISTORY PHYSICAL HNO ID: [id number] Author: Colten Najera DO Service: General Surgery Author Type: Resident Type: HANDP Filed: 07/29/2019 11:26 PM Note Text: Attestation signed by Ajay Tracy at 07/30/2019 1:20 PM I saw and evaluated the patient. Discussed with the resident and agree with resident's findings and plan as documented in the resident's note. Patient was seen and examined in the SICU at 945 today. She was thrown from horse. She suffered a subdural hematoma and a dislocated left thumb. She also has multiple abrasions of her face. She is awake alert and oriented and able to move all extremities. Will admit and get more surgery consult. HANDP: TRAUMA SURGERY SERVICE Trauma Service Pager: For questions or concerns Mon-Fri 6a-5p please page [phone]. After 5pm and on Weekends and Holidays, please page [phone] if in ICU or [phone] if on RNF. CATEGORY: Level 2 SERVICE DATE: 07/29/2019 SERVICE TIME: 10:32 PM Subjective This is a 54 year old White female who fell of her horse after it was spooked and ran out of control. GCS 15 at scene. Denies LOC. Presented to [place] ED where a workup was done. Ct showed subdural hematoma, and dislocated L thumb with multiple abrasions on LE and face. Pt states she has L flank pain. She has R chest wall pain as well. Denies fevers, chills, CP, SOB, cough, nausea, vomiting, constipation, diarrhea, urinary problems, or other complaints. ALLERGIES Allergen Reactions - Penicillins Shortness of Breath (Not in a hospital admission) Immunization History Administered Date(s) Administered Tdap (Age 7+) 07/29/2019 PAST MEDICAL HISTORY Diagnosis Date - Multiple sclerosis (HCC) PAST SURGICAL HISTORY Procedure Laterality Date - TREAT ECTOPIC PREG,NON REMVAL 1995 Ectopic Social History Socioeconomic History Marital status: Spouse name: Not on file Number of children: Not on file Years of education: Not on file Highest education level: Not on file Occupational History Not on file Social Needs Financial resource strain: Not on file Food insecurity: Worry: Not on file Inability: Not on file Transportation needs: Medical: Not on file Non-medical: Not on file Tobacco Use Smoking status: Current Every Day Smoker Substance and Sexual Activity Alcohol use: Not on file Drug use: Not on file Sexual activity: Not on file Lifestyle Physical activity: Days per week: Not on file Minutes per session: Not on file Stress: Not on file Relationships Social connections: Talks on phone: Not on file Gets together: Not on file Attends christianity service: Not on file Active member of club or organization: Not on file Attends meetings of clubs or organizations: Not on file Relationship status: Not on file Intimate partner violence: Fear of current or ex partner: Not on file Emotionally abused: Not on file Physically abused: Not on file Forced sexual activity: Not on file Other Topics Concerns: Not on file Social History Narrative Not on file ROS: Is the patient having any pain? Yes LOCATION: L flank tenderness, LE b/l, face, R chest wall Constitutional: Negative Eye/Ear/Nose: Negative Respiratory: Negative Cardiovascular: Negative GI/Liver/Biliary: Negative Genitourinary: Negative Psychiatric: Negative Neurologic: Negative Musculoskeletal: Negative Integument: Negative Endocrine: Negative Heme/Lymph: Negative Objective PRIMARY SURVEY AIRWAY: Patent BREATHING: Breath sounds equal CIRCULATION: PT/DP 2+, Radials 2+, Femoral 2+ DISABILITY: Eye: 4=Spontaneous Verbal: 5=Oriented and Converses Motor: 6=Obeys Commands Total GCS: 15=4 Resp Rate: 10 to 29=4 Syst BP: > than 89=4 REVISED TRAUMA SCORE: 12 EXPOSE / ENVIRONMENT: Warm Blankets PROCEDURES: none SECONDARY SURVEY VITALS: BP 91/75 Pulse 65 Temp (Src) 99.1 (Oral) Resp 14 Ht 5' 7 (1.70m) Wt 106 lb (48.1kg) SpO2 97% BMI 16.60 kg/(m2). NEURO: Alert AND Oriented x 3, GCS 15, Cranial Nerves II-XII Intact, Moves All Extremities, Strength Symmetrical, No Sensory Deficits HEENT: Eyes: PERRL, conjunctiva/corneas without lesions, EOM intact, Ears: Canals without blood or CSF drainage, TMs clear, external ears without lacerations, Nose: Septum midline, no crepitus with motion, Throat: Oral mucosa without lacerations, teeth in place, tongue without lacerations, abrasion to R cheek NECK: No midline pain with palpation, No pain with active ROM, No lacerations/wounds, No JVD, Trachea midline RESPIRATORY: No crepitus, Equal Excursion, eccymosis on anterior superior chest wall with TTP on R chest wall CARDIOVASCULAR: Heart rate regular, S1S2 with no R/M/G ABDOMEN: Non-distended, No scars or lacerations, Non-tenderness or peritoneal signs, No masses or organomegaly, Bowel sounds present all quads PELVIC/PERINEAL: Normal female genitalia, Pelvis stable to palpation, No blood noted at urethra meatus, Rectal exam with positive tone and negative for blood BACK/SPINE: Thoracolumbar spinal column non-tender, No step off or deformity noted, No external injury noted EXTREMITIES: b/l abrasion on LE, L thumb deformity RADIOLOGICAL/OTHER TEST DATA: See below PRIOR TO ARRIVAL: No Loss of Consciousness IMAGES US FAST (POC) ED USE ONLY (Results Pending) XR CHEST 1V FRONTAL (Results Pending) XR PELVIS 1V AP (Results Pending) CT ABD/PEL W IVCON (Results Pending) CT CHEST W IVCON (Results Pending) CT HN AND FACE xRAY ribs WNL Acute interhemispheric subdural hematoma, estimated to measure approximately 3 mm in maximal thickness. 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 XR CHEST 1V FRONTAL Final Result IMPRESSION: No radiographic evidence of acute cardiopulmonary abnormality. The lung bases are excluded from the [id number]. Membership Coordinator: FRANCIE Transcribe Date/Time: Jul 29 2019 10:39P Dictated by : MARISEL MEJÍA MD This examination was interpreted and the report reviewed and electronically signed by: MARISEL MEJÍA MD on Jul 29 2019 10:41PM EST XR PELVIS 1V AP Final Result IMPRESSION: Negative for fracture or malalignment of the pelvis. Membership Coordinator: FRANCIE Transcribe Date/Time: Jul 29 2019 10:38P Dictated by : MARISEL MEJÍA MD This examination was interpreted and the report reviewed and electronically signed by: MARISEL MEJÍA MD on Jul 29 2019 10:39PM EST US FAST (POC) ED USE ONLY (Results Pending) CT ABD/PEL W IVCON (Results Pending) CT CHEST W IVCON (Results Pending) XR DIGIT GENERAL 3V FRONTAL/LAT/OBL LT (Results Pending) LABS: CBC, Coags, BMP, Mg, Phos Recent Labs 07/29/19 2205 WBC 11.47* HB 13.0 HCT 38.7 PLT 175* INR 1.09 APTT 21.7* CSF AND Dilantin Liver Function, Amylase, AND Lipase Cardiac Enzymes ABGs Assessment/Plan DIAGNOSES: 54 yr old female with traumatic fall of horse with multiple abrasions and L thumb deformity and subdural hematoma TREATMENT/EVALUATION PLANS: Imaging performed: 1. CT HNCAP, face 2. Rib xrays 3. CXR 4. PXR Traumatic Injuries: 1. Subdural hematoma 2. L thumb dislocation 3. B/l LE abrasions Operations: 1. None 2. Ortho 1. - appreciate recs Care Plan: 1. No diet orders on file 2. NSICU 3. NPO, IVF 4. Pain control 5. IS 6. keppra 7. CT Head AM 8. Am labs 9. INR Prophylaxis: 1. DVT ppx: SCD Incidentals: 1. none Consulted Services and Recommendations: 1. NSY - appreciate recs 1. Ortho 1. Appreciate recs Dispo Plannin. NSICU Follow Up Needs: 1. TBD ED DISPOSITION: To ICU FINAL INJURIES: New injuries were identified on physical exam and review of radiological studies. The Senior/Chief Resident/Attending Physician have been informed and the above plan made for injury care and disposition. SIGNATURE: Colten Najera DO PATIENT NAME: Jamel Parks DATE: July 29, 2019 TIME: 10:32 PM PAGER/CONTACT #: Trauma Service Pager: For questions or concerns Mon-Fri 6a-5p please page [phone]. After 5pm and on Weekends and Holidays, please page [phone] if in ICU or [phone] if on RNF. Normal [facility] Hemogramon 07-30-2019 Erythrocyte distribution width (RBC) [Ratio] 12.2 % Normal 11.7-14.4 [facility] Comment on above: Performed By: #### C BC1 ####[place] [id number] Hematocrit (Bld) [Volume fraction] 30.8 % Low 34.1-44.9 [facility] Comment on above: Performed By: #### C BC1 ####[facility] [place], [place] [address] Hemoglobin (Bld) [Mass/Vol] 10.4 g/dL Low 11.2-15.7 [facility] Comment on above: Performed By: #### C BC1 ####[place] [address] MCH (RBC) [Entitic mass] 32.0 pg Normal 25.6-32.2 [facility] Comment on above: Performed By: #### C BC1 ####[place] [address] MCHC (RBC) [Mass/Vol] 33.8 % Normal 31.6-34.8 [facility] Comment on above: Performed By: #### C BC1 ####[place] [address] MCV (RBC) [Entitic vol] 94.8 fL Normal 79.4-94.8 [facility] Comment on above: Performed By: #### C BC1 ####[place] [address] Platelet mean volume (Bld) [Entitic vol] 11.2 fL Normal 9.4-12.3 [facility] Comment on above: Performed By: #### C BC1 ####[place] [id number] Platelets (Bld) [#/Vol] 131 thou/cmm Low 182-369 [facility] Comment on above: Performed By: #### C BC1 ####[place] [id number] RBC (Bld) [#/Vol] 3.25 mil/cmm Low 3.93-5.22 [facility] Comment on above: Performed By: #### C BC1 ####[place] [address] RDW SD 42.3 fl Normal 36.4-46.3 [facility] Comment on above: Performed By: #### C BC1 ####[facility] [place], [place] [address] WBC (Bld) [#/Vol] 6.61 thou/cmm Normal 3.98-10.04 [facility] Comment on above: Performed By: #### C BC1 ####[facility] [place] [address] Erythrocyte distribution width (RBC) [Ratio] 12.2 % Normal 11.7-14.4 [facility] Comment on above: Performed By: #### C BC1 ####[place] [address] Hematocrit (Bld) [Volume fraction] 38.7 % Normal 34.1-44.9 [facility] Comment on above: Performed By: #### C BC1 ####[place] [address] Hemoglobin (Bld) [Mass/Vol] 13.0 g/dL Normal 11.2-15.7 [facility] Comment on above: Performed By: #### C BC1 ####[place] [address] MCH (RBC) [Entitic mass] 32.0 pg Normal 25.6-32.2 [facility] Comment on above: Performed By: #### C BC1 ####[place] [address] MCHC (RBC) [Mass/Vol] 33.6 % Normal 31.6-34.8 [facility] Comment on above: Performed By: #### C BC1 ####[place] [id number] MCV (RBC) [Entitic vol] 95.3 fL High 79.4-94.8 [facility] Comment on above: Performed By: #### C BC1 ####[address] [address] Platelet mean volume (Bld) [Entitic vol] 11.6 fL Normal 9.4-12.3 [facility] Comment on above: Performed By: #### C BC1 ####[facility] [place], [place] [address] Platelets (Bld) [#/Vol] 175 thou/cmm Low 182-369 [facility] Comment on above: Performed By: #### C BC1 ####[place] [address] RBC (Bld) [#/Vol] 4.06 mil/cmm Normal 3.93-5.22 [facility] Comment on above: Performed By: #### C BC1 ####[place] [address] RDW SD 43.1 fl Normal 36.4-46.3 [facility] Comment on above: Performed By: #### C BC1 ####[place] [address] WBC (Bld) [#/Vol] 11.47 thou/cmm High 3.98-10.04 [facility] Comment on above: Performed By: #### C BC1 ####[place] [address] Lipase Bloodon 07-30-2019 Lipase Blood 127 U/L Normal 73-393 [facility] Comment on above: Performed By: #### L IP ####[place] [address] MRSA Screenon 07-30-2019 MRSA DNA MILO+probe Ql (Unsp spec) Test performed at [facility] No MRSA detected. Normal [facility] Comment on above: Performed By: #### M RSA ####[address] [address] Magnesium Bloodon 07-30-2019 Magnesium [Mass/Vol] 1.9 mg/dL Normal 1.6-2.6 [facility] Comment on above: Performed By: #### M AG ####[place] [address] NURSING PROGon 07-30-2019 NURSING PROG HNO ID: [id number] Author: Kaylyn GuerreroRnSarwat Santiago RN Service: ? Author Type: Registered Nurse Type: Nursing Progress Note Filed: 07/30/2019 6:28 PM Note Text: Nursing Progress Note Patient Name: Jamel Parks Patient Location: [place] [address] [id number] __ Transferred to [facility] via wheelchair. This note was completed by: Kaylyn Santiago RN [facility] NURSING PROG HNO ID: [id number] Author: Kaylyn Santiago RN Service: ? Author Type: Registered Nurse Type: Nursing Progress Note Filed: 07/30/2019 6:05 PM Note Text: Nursing Progress Note Patient Name: Jamel Parks Patient Location: [place] [address] [address] __ Report called to 5200 RN. This note was completed by: Kaylyn Santiago RN [facility] NUTRITIONon 07-30-2019 NUTRITION HNO ID: [id number] Author: Tho Sandoval RD Service: Nutrition Therapy Author Type: Registered Dietitian Type: Nutrition Filed: 07/30/2019 11:20 AM Note Text: NUTRITION THERAPY INITIAL ASSESSMENT SERVICE DATE: 07/30/2019 SERVICE TIME: 11:08 AM Eval for low BMI RECOMMENDED MALNUTRITION DIAGNOSIS: NO MALNUTRITION IDENTIFIED; no documented weight history to evaluate, patient reports current weight is her normal. May need to re-evaluate malnutrition. NUTRITION CARE PLAN: Problem, Etiology and Signs/Symptoms: Suboptimal oral intake related to lack of appetite currently and just stating clear liquid diet as evidenced by patient interview, chart review Increased nutrient needs kcals/pro related to trauma/injuries, as evidenced by HPI, exam. Intervention: Start oral supplement 1) patient reports she does not like milky ensure type supplements. Will trial ensure clear once daily. -will continue to follow with interventions as needed. Coordination of Care:SICU team Monitor and Evaluation: Goal: Meet >75% of estimated needs Monitor fluid/electrolyte balance Monitor labs, I/Os, vital signs, weight Discharge Nutrition Recommendations: To be determined Per HPI: 54 y o female presents with fall from horse, found to have injuries as stated below: Active Hospital Problems Diagnosis Date Noted - Subdural hemorrhage (HCC) 07/30/2019 - Animal-rider injured by fall from or being thrown from horse in noncollision accident, initial encounter 07/30/2019 - Mild TBI (traumatic brain injury) (HCC) 07/30/2019 - Thumb dislocation, left, initial encounter 07/30/2019 - Multiple sclerosis (HCC) 07/30/2019 - Hypokalemia 07/30/2019 - Abrasion of anterior right lower leg 07/30/2019 Orders Placed This Encounter DIET LIQUID Standing Status: Standing Number of Occurrences: 1 Order Specific Question: Liquid Diet Answer: CLEAR LIQUID Lines and Drains: Peripheral 07/29/19 2202 Right Antecubital 16 Gauge (Active) Peripheral 07/30/19 0030 Left Antecubital 20 Gauge (Active) Nutritional Intake Prior to Admission: Unable to determine patient report no decrease in intake CONSULAR OFFICER GI symptoms: lack of appetite currently Nutrition Abdominal Exam: and not assessed due to injuries ANTHROPOMETRICS Height: 170.2 cm (5' 7) Admission Weight: 48.1 kg (106 lb) Current Weight: 45.8 kg (100 lb 15.5 oz) Body mass index is 15.81 kg/m?. underweight Weight has unable to determine weight loss; patient reports to me that this is her normal weight. Endorses no weight changes and no changes in intake CONSULAR OFFICER. Last Wt 07/30/19 : 45.8 kg (100 lb 15.5 oz) 07/29/19 : 48.1 kg (106 lb) Dosing Weight: 46 kg Resting Metabolic Rate: 1104 Estimated kilocalorie needs: 1380 kilocalories determined by 30 kcal/kg Estimated protein needs: 69 grams determined by 1.5 g/kg Current weight Estimated fluid needs: 1400 milliliters based on 1 mL per kcal NUTRITION FOCUSED PHYSICAL EXAM: noted numerous abrasions, bruising, swelling Subcutaneous Fat Loss Orbital Unable to determine at this time-sever swelling and bruising/injuries Triceps Unable to determine at this time Mid-axillary at the iliac crest Mild Muscle Loss Locations: Temporalis Unable to determine at this time Pectoralis Unable to determine at this time Deltoids Severe Interosseous Unable to determine at this time Latissimus dorsi, trapezius Moderate Quadriceps Unable to determine at this time Gastrocnemius Unable to determine at this time-edema Potential micronutrient deficiency revealed in: Teeth - poor dentition Edema: Yes Lower extremities Moderate 2+ Ascites: No Assessment of Functional Status: Unable to assess Temperature Max in 24 hours: Temp (24hrs), Av.1 ?C (98.8 ?F), Min:36.4 ?C (97.6 ?F), Max:37.6 ?C (99.6 ?F) BP 94/56 Pulse 64 Temp 36.4 ?C (97.6 ?F) (Oral) Resp 11 Ht 170.2 cm (5' 7) Wt 45.8 kg (100 lb 15.5 oz) SpO2 100% BMI 15.81 kg/m? Recent Labs 07/30/19 0401 07/29/19 2205 GLUC 98 97 BUN 12 15 CREAT 0.69 0.81 NA 140 140 K 3.4* 4.3 CHLOR 111* 108* CO2 26 31 ALB -- 4.0 P 2.8 -- HB 10.4* 13.0 HCT 30.8* 38.7 WBC 6.61 11.47* MG 1.9 -- Potential Signs of Inflammation: leukocytosis and s/p trauma, injuries ALLERGIES Allergen Reactions - Penicillins Shortness of Breath Current Facility-Administered Medications Medication Dose Route Frequency - oxyCODONE IR 5-10 mg tab(s) (ROXICODONE) 5-10 mg ORAL q 6 H PRN - magnesium sulfate in sterile water 4 g iv piggyback 4 g INTRAVENOUS ONCE - acetaminophen 975 mg tab(s) (TYLENOL) 975 mg ORAL q 6 H PRN - potassium chloride 80-120 mEq oral liquid 80-120 mEq ORAL/FEEDING TUBE PRN - potassium chloride iv piggyback 20 mEq/100 mL 20 mEq INTRAVENOUS PRN - magnesium sulfate in water 2 g in sterile water 50 ml 2 g INTRAVENOUS PRN - sodium phosphate 45 mmol in NaCl 0.9% 250 mL 45 mmol INTRAVENOUS PRN - calcium gluconate 4 g in NaCl 0.9% 250 mL 4 g INTRAVENOUS PRN - enoxaparin 30 mg injection (LOVENOX) 30 mg SUBCUTANEOUS q 12 HR - bacitracin-polymyxin B 500-10,000 unit/gram (POLYSPORIN) TOPICAL TID Date 07/29/19699 - 07/30/19 0659 07/30/196[address] - 07/31/19 0659 Shift 7951-1165 2585-3139 2630-4970 24 Hour Total 4323-9119 2736-0719 3707-5891 24 Hour Total INTAKE PO 120 120 PO 120 120 IV 429.7 429.7 145 145 IVPB 100 100 NS 0.9% 329.7 329.7 145 145 Shift Total 429.7 429.7 265 265 OUTPUT Urine 125 125 75 75 Void (ml) 125 125 75 75 Urine Not Saved. 1 x 1 x Shift Total 125 125 75 75 Weight (kg) 48.1 45.8 45.8 45.8 45.8 45.8 45.8 Vitamin and Mineral Labs in the past year:No results for input(s): CHROMIUM, COPPER, MANGANESE, SELENIUM, VITAMINA, VITB1, VITB2, VITB6, B12, METHYLMAL, VITD25, VITAMINE, VITAK, ZINC, TIBC, FE, VEENA in the last 8784 hours. MNT Billing Type: Initial Assess/15 min 3 units SIGNATURE: Tho Sandoval RD, LD PATIENT NAME: Jamel Parks DATE: July 30, 2019 TIME: 11:08 AM PAGER: [phone] [facility] PLAN OF CAREon 07-30-2019 PLAN OF CARE HNO ID: [id number] Author: Nico Bullock (Bowl Topper) Service: Pharmacy Author Type: Pharmacist Type: Plan of Care Filed: 07/30/2019 12:15 PM Note Text: MEDICATION HISTORY AND MEDICATION RECONCILIATION Patient Name:Belen Parks : 1965 Source of history:Patient: Reliability of source: Appears reliable, clearly identified: Medication name, Medication dose, Medication route and Medication frequency, Pharmacy records: per reconcile outside information, [facility] records and [facility] Medication Nonadherence Identified: No barriers noted The above information represents the best possible medication history: Yes Reconciliation completed? Yes All CONSULAR OFFICER medications addressed by LIP Additional comments: Qorlt-ic-Epcnfjifv Medication List Adjustments: Medication Regimen Changes: Adjusted vitamin D dose to 1000 units daily Medications Added: Vitamin B12 1000mcg daily Medications Removed: Copaxone - was discontinued, patient states she does not take any medications for her MS right now Patient is a 30 day readmission: No Time Spent Reviewing Patient's Medications: 10 minutes Allergies: ALLERGIES Allergen Reactions - Penicillins Shortness of Breath Current CONSULAR OFFICER Medications: Prior to Admission medications as of 07/30/19 1213 Medication Sig Last Dose Taking cholecalciferol (VITAMIN D) 1,000 unit tab tablet Take 1,000 Units by mouth once daily. Yes cyanocobalamin (VITAMIN B-12) 1,000 mcg tab Take 1,000 mcg by mouth once daily. Yes NICO BULLOCK, NIB ADJUSTER July 30, 2019 12:14 PM Normal [facility] PROGRESSon 07-30-2019 PROGRESS HNO ID: [id number] Author: Zay Mcfarlane Service: Critical Care Author Type: Physician Type: Progress Notes Filed: 07/30/2019 10:40 AM Note Text: INPATIENT SICU PROGRESS NOTE SICU Service Pager: For questions or concerns Mon-Sun 6a-5p please page [phone]. After 5pm and on Weekends and Holidays, please page [phone]. SERVICE DATE: 07/30/2019 Subjective Feels well this AM. Admits to some L thumb.hand pain, but improved since admission. Denies headache, vision changes, tinnitus, or other complaints. Current Facility-Administered Medications Medication Dose Route Frequency - iv contrast (radiology procedure) INTRAVENOUS DIRECTED PRN - iv contrast (radiology procedure) INTRAVENOUS DIRECTED PRN - bacitracin-polymyxin B 500-10,000 unit/gram (POLYSPORIN) TOPICAL TID - NaCl 0.9% iv infusion 75 mL/hr INTRAVENOUS CONTINUOUS - levETIRAcetam 1,000 mg in NaCl 0.9% 100 mL (KEPPRA) 1,000 mg INTRAVENOUS BID - acetaminophen 650 mg tab(s) (TYLENOL) 650 mg ORAL q 6 H - oxyCODONE IR 5-10 mg tab(s) (ROXICODONE) 5-10 mg ORAL q 6 H PRN - morphine 4 mg injection 4 mg INTRAVENOUS q 4 H PRN Objective VITAL SIGNS BP 93/55 Pulse 55 Temp (Src) 97.6 (Oral) Resp 12 Ht 5' 7 (1.70m) Wt 100 lb 15.5 oz (45.8kg) SpO2 97% BMI 15.81 kg/(m2). O2 Therapy: Room Air Temp (24hrs), Av.1 ?C (98.8 ?F), Min:36.4 ?C (97.6 ?F), Max:37.6 ?C (99.6 ?F) Date 07/29/19699 - 07/30/19 0659 07/30/19 07 - 07/31/19 0659 Shift 6353-3950 5986-2031 8455-5884 24 Hour Total 7797-4932 6995-9240 8422-1285 24 Hour Total INTAKE IV 429.7 429.7 IVPB 100 100 NS 0.9% 329.7 329.7 Shift Total 429.7 429.7 OUTPUT Urine 125 125 Void (ml) 125 125 Urine Not Saved. 1 x 1 x Shift Total 125 125 Weight (kg) 48.1 45.8 45.8 45.8 45.8 45.8 45.8 PHYSICAL EXAM: GENERAL: Alert, no distress, cooperative HEENT: Abrasions of the head/face, EOMI NECK: Trachea midline, no JVD SKIN: Besides skin abrasions, skin color, texture, turgor normal. No rashes or lesions. LUNGS: unlabored breathing equal chest rise bilaterally on O2 Therapy: Room Air sating at SpO2: 97 % CARDIAC: Regular rate and rhythm as above, ABDOMEN: SNTND EXTREMITIES: L thumb reduced/splinted. ROM of all joint grossly normal: strength grossly normal bilaterally. No deformities noted. NEURO: CN II-XII grossly intact, no paresthesias PSYCH: normal mood and affect DATA: Diagnostic tests reviewed for today's visit: No results for input(s): BODSITE, CTYPE, PH, PCO2, PO2, BE, HCO3, CO2CT, O2HB, COHB, MHGB, TEMP, PHTC, PCO2T, PO2T, O2AD in the last 72 hours. Recent Labs 07/30/19 0401 07/29/19 2205 CREAT 0.69 0.81 BUN 12 15 NA 140 140 K 3.4* 4.3 CHLOR 111* 108* CO2 26 31 ANION 6* 5* GLUC 98 97 CA 7.8* 9.2 P 2.8 -- MG 1.9 -- ALB -- 4.0 AST -- 30 ALT -- 33 ALKPHOS -- 41* TBILI -- 0.8 WBC 6.61 11.47* HB 10.4* 13.0 HCT 30.8* 38.7 PLT 131* 175* Assessment/Plan 54 yr old female with traumatic fall of horse with multiple abrasions and L thumb deformity and subdural hematoma ACTIVE PROBLEM LIST Subdural Hemorrhage (Hcc) Animal-Samir Injured By Fall From Or Being Thrown From Horse in Noncollision Accident, Initial Encounter Mild Tbi (Traumatic Brain Injury) (Hcc) Thumb Dislocation, Left, Initial Encounter Multiple Sclerosis (Hcc) Hypokalemia Neuro: - Pain Control: tylenol, oxycodone, fentanyl - Sedation: none - Seizure ppx: Keppra - neurochecks - repeat CTH in AM HEENT: - bacitracin for abrasions CV: - tele - EKG if arrythmia Resp: - on O2 Therapy: Room Air - incentive spirometer GI: - DIET NPO - Bowel Regimen: when starts diet - GI ppx: none - zofran Renal: - IVF - marks - Strict I/Os - replete lytes prn - Creatinine Date Value Ref Range Status 07/30/2019 0.69 0.51 - 0.95 mg/dL Final 07/29/2019 0.81 0.51 - 0.95 mg/dL Final - No intake or output data in the 24 hours ending 07/29/19 0659 Heme: - HGB Date Value Ref Range Status 07/30/2019 10.4 (L) 11.2 - 15.7 g/dL Final - Daily CBCs . Endo: - Glucose Date Value Ref Range Status 07/30/2019 98 70 - 99 mg/dL Final - Daily BMPs ID: - WBC Date Value Ref Range Status 07/30/2019 6.61 3.98 - 10.04 thou/cmm Final - Daily CBCs - Observe for signs of infection: redness, warmth, increased swelling and pain with joint movement, fever, chills, sweats, etc. - Cultures: - MRSA (p) Ext: - DVT ppx: holding 2/2 active bleeding - Ortho recs: spica splint, follow up outpatient for ligamentous injuries with Dr Hunter - no restraints Lines: Peripheral 07/29/19 2202 Right Antecubital 16 Gauge (Active) Peripheral 07/30/19 0030 Left Antecubital 20 Gauge (Active) ] Consults: T, SICU, Neurosurgery, ortho Dispo: - Floor Patient Checklist Deep vein thrombosis prophylaxis administered? No. Contraindicated.. Stress ulcer prophylaxis? No, contraindicated. Pain addressed? Yes. Nutrition: Enteral- No. TPN- No. PO- No. Restraints? No. Dispo needs assessed? Yes. SIGNATURE: Feng Cote DO PATIENT NAME: Jamel Parks DATE: July 30, 2019 TIME: 6:38 AM PAGER: see below SICU Service Pager: For questions or concerns Mon-Fri 6a-5p please page [phone]. After 5pm and on Weekends and Holidays, please page [phone]. As above Awake and alert Was not wearing helmet Repeat head CT with stable SDH No N/V Left thumb dislocation splinted Multiple abrasions over face and legs Plan: Neuro checks PT/OT Diet D/C IV Hand surgery following Pain control Wound care I provided 35 minutes of critical care services which were necessary due to above specified injuries and illnesses. This patient has a high probability of sudden, clinical significant deterioration, which required the highest level of care and preparedness to intervene urgently. I managed and supervised life or organ supporting interventions that require frequent assessments. This time does not include time devoted to teaching and to any procedure I billed separately. I have personally seen and examined this patient and participated in the cedeno components of this encounter with the multi-disciplinary ICU team. I discussed the management of this case with the resident and reviewed/confirmed their documentation, attached or in separate note. I personally reviewed today's actual images, the associated image reports, and current labs. I supervised the ordering of additional testing, imaging, labs, and/or consultations. The patient and/or family were fully informed of the findings and plan of care. They had the opportunity to ask questions and raise any issues of concern, all of which were answered and dealt with by me to their stated satisfaction. The critical care treatment was mainly directed to address the following issues: (S06.5X9A) Subdural hematoma (HCC) (primary encounter diagnosis) (S06.9X9A) Mild traumatic brain injury with loss of consciousness, initial encounter (HCC) (V80.010A) Animal-rider injured by fall from or being thrown from horse in noncollision accident, initial encounter (E87.6) Hypokalemia (S63.105A) Thumb dislocation, left, initial encounter (G35) Multiple sclerosis (HCC) Management included sedation, pain control and ventilation assessment including need for ventilator, weaning and/or extubation as indicated. Management of critical care illnesses are edited above by me, including system by system plan and are not only limited to infectious disease and tailoring the antibiotic therapy, nutrition assessment and supplementation, electrolyte correction and prevention of ICU related complications using ventilator bundle, sedation holiday and assessment and removal of lines and tubes where indicated. SIGNATURE: Zay Mcfarlane MD PATIENT NAME: Jamel Parks DATE: July 30, 2019 TIME: 10:32 AM Normal [facility] PROGRESS HNO ID: [id number] Author: Raissa Damon Service: Trauma Author Type: Resident Type: Progress Notes Filed: 07/30/2019 6:50 AM Note Text: Attestation signed by Ajay Tracy at 07/30/2019 1:21 PM I saw and evaluated the patient. Discussed with the resident and agree with resident's findings and plan as documented in the resident's note. Patient's awake alert and oriented. She is feeling better. CT scan is stable. We'll transfer to the floor and start getting her up and moving. Trauma Surgery Progress Note SERVICE DATE: 07/30/2019 Trauma Service Pager: For questions or concerns Mon-Fri 6a-5p please page [phone]. After 5pm and on Weekends and Holidays, please page [phone] if in ICU or [phone] if on RNF. SUBJECTIVE: Reports feeling tired this morning because she didn't get any sleep and is still sore. Tolerating diet DIET NPO OBJECTIVE: Vitals: Temp (24hrs), Av.1 ?C (98.8 ?F), Min:36.4 ?C (97.6 ?F), Max:37.6 ?C (99.6 ?F) BP 93/55 Pulse (!) 55 Temp 36.4 ?C (97.6 ?F) (Oral) Resp 12 Ht 170.2 cm (5' 7) Wt 45.8 kg (100 lb 15.5 oz) SpO2 97% BMI 15.81 kg/m? O2 Therapy: Room Air IANDO: Date 07/29/19699 - 07/30/1965807/30/19699 - 07/31/19 0659 Shift 5182-9167 7251-2004 0513-0640 24 Hour Total 0101-7138 9852-3028 4222-8214 24 Hour Total INTAKE IV 429.7 429.7 IVPB 100 100 NS 0.9% 329.7 329.7 Shift Total 429.7 429.7 OUTPUT Urine 125 125 Void (ml) 125 125 Urine Not Saved. 1 x 1 x Shift Total 125 125 Weight (kg) 48.1 45.8 45.8 45.8 45.8 45.8 45.8 MEDICATIONS Current Facility-Administered Medications Medication Dose Route Frequency - NaCl 0.9% iv infusion 75 mL/hr INTRAVENOUS CONTINUOUS - levETIRAcetam 1,000 mg in NaCl 0.9% 100 mL (KEPPRA) 1,000 mg INTRAVENOUS BID - acetaminophen 650 mg tab(s) (TYLENOL) 650 mg ORAL q 6 H - oxyCODONE IR 5-10 mg tab(s) (ROXICODONE) 5-10 mg ORAL q 6 H PRN - morphine 4 mg injection 4 mg INTRAVENOUS q 4 H PRN - iv contrast (radiology procedure) INTRAVENOUS DIRECTED PRN - iv contrast (radiology procedure) INTRAVENOUS DIRECTED PRN - bacitracin-polymyxin B 500-10,000 unit/gram (POLYSPORIN) TOPICAL TID Labs: Recent Labs 07/30/19 0401 07/29/19 2205 NA 140 140 K 3.4* 4.3 CHLOR 111* 108* CO2 26 31 BUN 12 15 CREAT 0.69 0.81 GLUC 98 97 ANION 6* 5* CA 7.8* 9.2 MG 1.9 -- P 2.8 -- ALB -- 4.0 AST -- 30 ALT -- 33 ALKPHOS -- 41* TBILI -- 0.8 WBC 6.61 11.47* HB 10.4* 13.0 HCT 30.8* 38.7 PLT 131* 175* INR -- 1.09 Exam: GENERAL: No distress, alert, cooperative NEURO: AANDOx3, CN II-XII grossly intact HEENT: abrasions across face and neck LUNGS: Unlabored breathing CARDIAC: Regular rate and rhythm as above ABDOMEN: Soft, non-tender, non-distended EXTREMITIES: L hand splint SKIN: Skin color, texture, turgor normal, No rashes or lesions ASSESSMENT AND PLAN: Active Hospital Problems Diagnosis Date Noted - Subdural hemorrhage (HCC) 07/30/2019 54 year old female with traumatic fall off horse with multiple abrasions and L thumb deformity and subdural hematoma Imaging performed: 1. CT HNCAPF 07/29/2019 2. Rib XR 07/29/2019 3. CXR 07/29/2019 4. PXR 07/29/2019 5. CTH 07/30/2019 Traumatic Injuries: 1. Subdural hematoma 2. L thumb dislocation 3. B/l LE abrasions Operations: 1. None Care Plan: 1. Current diet: DIET NPO 2. Rpt CTH this AM appears stable, will follow for official report 3. IS 4. Pain control 5. Neuro checks 6. HOB >30, bedrest 7. Keppra 8. PT/OT once CTH stable 9. Bacitracin to abrasions Prophylaxis: 1. DVT ppx: SCD Incidentals: 1. None Consulted Services and Recommendations: 1. Ortho - spica splint, NWB LUE 2. NSGY Dispo Plannin. TBD Follow Up Needs: 1. F/u w Dr Hunter as OP SIGNATURE: Raissa Damon MD PATIENT NAME: Jamel Parks DATE: July 30, 2019 TIME: 6:22 AM Pager: see below Trauma Service Pager: For questions or concerns Mon-Fri 6a-5p please page [phone]. After 5pm and on Weekends and Holidays, please page [phone] if in ICU or [phone] if on RNF. Normal [facility] PROGRESS HNO ID: [id number] Author: Bunny (Sherly) Reema Service: Orthopaedic Surgery Author Type: Resident Type: Progress Notes Filed: 07/30/2019 6:43 AM Note Text: ORTHOPAEDIC SURGERY POSTOP DAILY PROGRESS NOTE Patient Name: Jamel Parks Date of Evaluation: 07/30/2019 Admission Date: 07/29/2019 Time of Evaluation: 6:14 AM ASSESSMENT: 54 year old female left thumb MCP dislocation s/p reduction PLAN: - Medical management per primary - Pain control per primary - Left thumb spica splint in place, maintain - NWB LUE - Ice/elevate LUE - No orthopaedic surgical intervention planned at this time - Patient to follow up with Dr. Hunter as an outpatient for further management of left MCP dislocation which likely has associated ligamentous injuries INTERVAL HPI: Patient monitored, no new events overnight. Patient states that they are comfortable. Well Controlled pain. Denies nausea/vomitting. OBJECTIVE: BP 93/55 Pulse (!) 55 Temp 36.4 ?C (97.6 ?F) (Oral) Resp 12 Ht 170.2 cm (5' 7) Wt 45.8 kg (100 lb 15.5 oz) SpO2 97% BMI 15.81 kg/m? Intake/Output Summary (Last 24 hours) 07/29 2300 - 07/30 0659 In: 429.7 [IV:429.7] Out: 125 [Urine:125] Exam: General: NAD, AAOx3 Extremities: Left Upper Extremity: Splint in place Motor intact M/R/U/Ax SILT M/R/U/Ax Radial pulse palpable. Compartments soft, compressible. Tolerates passive stretch of digits. Labs: BMP: Sodium 140 07/30/2019 Potassium 3.4 07/30/2019 Chloride 111 07/30/2019 CO2 26 07/30/2019 BUN 12 07/30/2019 Creatinine 0.69 07/30/2019 Glucose 98 07/30/2019 CBC: WBC 6.61 07/30/2019 HGB 10.4 07/30/2019 Hematocrit 30.8 07/30/2019 Platelet Count 131 07/30/2019 COAGS: APTT 21.7 07/29/2019 INR 1.09 07/29/2019 SED RATE/CRP: No results found for this basename: wsr:*,crp:* Imaging: no new images Bunny Benavidez MD Resident, Orthopaedic Surgery Pager #: [phone] 07/30/2019 6:14 AM Please page [phone] from 5p-6a and on weekends for any issues. Normal [facility] Phosphorus Bloodon 9 Phosphate [Mass/Vol] 2.8 mg/dL Normal 2.5-4.9 [facility] Comment on above: Performed By: #### P HOS ####[facility] [place] [address] Protimeon 07-30-2019 INR Coag (PPP) [Relative time] 1.09 {INR} Normal 0.90-1.30 [facility] Comment on above: Result Comment: Yoly min K Antagonist (VKA) Therapeutic Range: INR 2 to 3 (Target INR of 2.5) Note: For patients treated with VKA drugs, such as warfarin, the [place] [employer] 2012 Guideline recommends a therapeutic INR range of 2 to 3 (target INR of 2.5). This recommendation includes high-risk patients with antiphospholipid syndrome with previous arterial or venous thromboembolism, current-generation mechanical or bioprosthetic aortic heart valve replacement. VKA Therapeutic Range for some Mechanical Valve Replacement: INR 2.5 to 3.5 (Target INR of 3) Note: Patients with mechanical aortic valve replacement and additional risk factors for thromboembolic events (atrial fibrillation, previous thromboembolism, LV dysfunction, hypercoagulable conditions) or an older generation mechanical AVR (i.e., ball in-Cage) or any mechanical MVR should have a INR therapeutic range of 2.5 to 3.5 target INR of 3). Norris GH, et al. Chest 2012; 141:7S-47S Arya RA et al. JACC 2017; 70: 252-289 Performed By: #### P T #### [facility] [address] [place], [place] [address] PT Coag (PPP) [Time] 11.8 s Normal 9.7-13.0 [facility] Comment on above: Performed By: #### P T #### [facility] [address] [place], [place] [address] THERAPY NTon 07-30-2019 THERAPY NT HNO ID: [id number] Author: Adamaris (Spool Hauler) ALFONSO Mcdonald/LATHE HAND Service: Speech/Swallow Author Type: Speech Language Pathologist Type: Therapy (PT/OT/Speech/Resp) Filed: 07/30/2019 2:53 PM Note Text: Speech Therapy Speech Evaluation SERVICE DATE: 07/30/2019 SERVICE TIME: 1405 to 1440 ROOM: [place] [address] Results and Recommendations Discussed With: Patient;Nurse Recommended Discharge Disposition: Home IMPRESSION: Patient demonstrates normal speech, language and cognition. No further Speech Therapy indicated. Rehabilitation Precautions: Cognitive Linguistics Deficits ASSESSMENT: Patient is awake, alert and talkative - Patient in bed upon arrival, alert and able to participate in therapy - Assessed speech, language, and cognitive skills with informal measures due to injuries with left preferred hand/arm: - Speech: Intelligibility: within functional limits Dysarthria/Apraxia: within functional limits - Language: Receptive: within functional limits Expressive: within functional limits - Cognition: Problem solving: within functional limits Memory: within functional limits Reasoning: within functional limits Attention: within functional limits Sequencing: within functional limits Organization: within functional limits - Reading/writing: within functional limits for reading comprehension at sentence level; writing limited due to injured left hand/arm - Insight: within functional limits - Pragmatics: within functional limits - Patient presents with deficits in the following areas: Normal speech, language and cognition - No further Speech Therapy indicated at this time Tolerated Full Session Goals for Plan of Care: NA Patient /Caregiver Goals: Go Home Speech Rehab Potential: Good PLAN: Treatment Frequency (times per week): Discontinue Therapy Services Reasons Inpatient Therapy Services Discontinued: Patient appears safe and appropriate re: communication, cognition, and swallow function with the ability to return to a baseline level of function Plan of Care Developed with: Patient;Caregiver TREATMENT INTERVENTIONS: Therapy Diagnosis: No Skilled Need Interventions Provided: Speech Language Eval (57967) $ Speech Language Eval (29165) Billed Units: 1 unit Total Treatment Time (minutes): 35 SUBJECTIVE: Current Hospital Course: Chart reviewed; This 54 year old female was admitted after a fall from a horse. She experienced a subdural hematoma and TBI. Reason for Speech Therapy Consult: TBI, assess speech, language and cognition Relevant Past Medical History: multiple sclerosis Patient Report: I feel like I am thinking and talking like my usual self. Home Environment Prior Functional Level: Within Functional Limits Assistance Available: PRN Prior Swallowing Function/Diet Textures: Regular Consistency;Thin Liquids IDDSI Level 0 Please see discipline specific clinical documentation flowsheet for complete details for this therapy evaluation/treatment. SIGNATURE: Adamaris Mcdonald CCC-[facility] PATIENT NAME: Jamel Parks DATE: July 30, 2019 TIME: 2:46 PM Normal [facility] Type and Screenon 07-30-2019 ABO group Nom (Bld) A Normal [facility] Comment on above: Performed By: #### T &S ####[place] [address] Comment See Below Normal [facility] Comment on above: Result Comment: Scre en &/or Xmatch expires in 3 days at 12 midnight. Redraw patient at that time. Performed By: #### T &S ####[place] [address] RH Type Negative Normal [facility] Comment on above: Performed By: #### T &S ####[place] [address] Urinalysis Routineon 019 Bacteria LM.HPF (Urine sed) [#/Area] FEW Normal None [facility] Comment on above: Performed By: #### U RIN2 ####[place] [address] Ep Cells Urine 1.0 /hpf Normal 0.0-5.0 [facility] Comment on above: Performed By: #### U RIN2 ####[place] [address] Hyaline Cast 0.3 /lpf Normal 0.0-1.0 [facility] Comment on above: Performed By: #### U RIN2 ####[address] [address] RBC LM.HPF (Urine sed) [#/Area] 1.2 /[HPF] Normal 0.0-5.0 [facility] Comment on above: Performed By: #### U RIN2 ####[address] [address] WBC LM.HPF (Urine sed) [#/Area] 1.9 /[HPF] Normal 0.0-5.0 [facility] Comment on above: Performed By: #### U RIN2 ####[place] [address] Appearance (U) CLEAR Normal [facility] Comment on above: Performed By: #### U RIN2 ####[place] [address] Bilirubin (U) [Mass/Vol] Negative Normal Negative [facility] Comment on above: Performed By: #### U RIN2 ####[place] [address] Color (U) YELLOW Normal [facility] Comment on above: Performed By: #### U RIN2 ####[place] [address] Glucose Ql (U) Negative Normal Negative [facility] Comment on above: Performed By: #### U RIN2 ####[place] [address] Hemoglobin,Urine Negative Normal Negative [facility] Comment on above: Performed By: #### U RIN2 ####[place] [address] Ketone Urine Negative Normal Negative [facility] Comment on above: Performed By: #### U RIN2 ####[place] [address] Leukocytes Esterase Negative Normal Negative [facility] Comment on above: Performed By: #### U RIN2 ####[place] [address] Nitrites Urine Positive Abnormal Negative [facility] Comment on above: Performed By: #### U RIN2 ####[address] [address] pH (U) 8.0 [pH] Normal 5.0-8.0 [facility] Comment on above: Performed By: #### U RIN2 ####[address] [address] Protein (U) [Mass/Vol] Negative Normal Negative [facility] Comment on above: Performed By: #### U RIN2 ####[place] [address] Specific [place], Ur >1.045 Abnormal 1.005-1.030 [facility] Comment on above: Performed By: #### U RIN2 ####[place] [address] Urobilinogen,Ur 1.0 EU/dL Normal 0.2-1.0 [facility] Comment on above: Performed By: #### U RIN2 ####[place] [address] Urine Drug Screenon 07-30-20 19 Urine Barbiturates Non-detected Normal Non-Detected [facility] Comment on above: Performed By: #### U DRG2 ####[address] [address] Urine Benzodiazepine Non-detected Normal Non-Detected [facility] Comment on above: Performed By: #### U DRG2 ####[address] [address] Urine Cocaine Metab Non-detected Normal Non-Detected [facility] Comment on above: Performed By: #### U DRG2 ####[address] [address] Urine Opiate Non-detected Normal Non-Detected [facility] Comment on above: Performed By: #### U DRG2 ####[address] [address] Urine PCP Non-detected Normal Non-Detected [facility] Comment on above: Performed By: #### U DRG2 ####[address] [address] Urine THC Non-detected Normal Non-Detected [facility] Comment on above: Result Comment: Urin e Drug Cutoff Levels Urine Amphetamine 500 ng/mL Urine Barbiturate 200 ng/mL Urine Benzodiazepines 200 ng/mL Urine Cocaine 150 ng/mL Urine Phencyclidine (PCP) 25 ng/mL Urine Opiates 300 ng/mL Urine THC 50 ng/mL The results of these analytes are unconfirmed and reported qualitatively as detected or non-detected relative to the cutoff value. Detected results indicate the sample is likely to contain the analyte. Non-detected results indicate that either the sample does not contain the analyte or it is present in concentrations below the cutoff level. This drug screen should be used for medical diagnostic purposes only. Performed By: #### U DRG2 ####[address] [address] Urine Amphetamine Non-detected Normal Non-Detected [facility] Comment on above: Performed By: #### U DRG2 ####[address] [address] Urine HCG, Qual.on 9 Beta HCG ( test) Ql (U) Negative Normal Negative [facility] Comment on above: Performed By: #### H CGUR ####[address] [address] Specific [place], Ur 1.057 High 1.005-1.030 [facility] Comment on above: Performed By: #### H CGUR ####[address] [address] XR CHEST 1V FRONTALon 2018 XR CHEST 1V FRONTAL * * *Final Report* * * DATE OF EXAM: Jul 29 2019 10:21PM [id number] [id number] - XR CHEST 1V FRONTAL / PROCEDURE REASON: Chest trauma, blunt * * * * Physician Interpretation * * * * CHEST RADIOGRAPH: AP view of the chest. Exam Date/Time: 07/29/2019 10:21 PM Indication: Chest trauma, blunt Comparison: No relevant prior study available for comparison. RESULTS: Lines, Tubes, and Devices: None Lungs and Pleura: The right costophrenic angle and left lung base are excluded from the [id number]. The visible portion of the lungs are clear. No discernible pneumothorax.. Cardiomediastinal silhouette: The mediastinal and cardiac silhouette are normal in size and contour. Other: The bones of the chest are unremarkable. IMPRESSION: No radiographic evidence of acute cardiopulmonary abnormality. The lung bases are excluded from the [id number]. Membership Coordinator: [facility] Transcribe Date/Time: Jul 29 2019 10:39P Dictated by : MARISEL MEJÍA MD This examination was interpreted and the report reviewed and electronically signed by: MARISEL MEJÍA MD on Jul 29 2019 10:41PM EST Normal [facility] XR DIGIT 3V FRONTAL/LAT/OBL LTon 07-30-2019 XR DIGIT 3V FRONTAL/LAT/OBL LT * * *Final Report* * * DATE OF EXAM: Jul 29 2019 11:04PM [id number] [id number] - XR DIGIT 3V FRONTAL/LAT/OBL LT / PROCEDURE REASON: Post-operative / post-procedure assessment, asymptomatic * * * * Physician Interpretation * * * * XR DIGIT 3V FRONTAL/LAT/OBL LT INDICATION: Post reduction. COMPARISON: Left hand radiograph 07/29/2019 at 7:45 PM TECHNIQUE: PA, lateral and oblique views left thumb, 3 films. FINDINGS: Overlying splint/casting material obscures some bone detail. There is been interval satisfactory reduction and anatomic alignment of the dislocated first MCP joint. No acute fracture identified. IMPRESSION: Interval satisfactory post reduction left thumb as above with no acute fracture identified. Membership Coordinator: [facility] Transcribe Date/Time: Jul 29 2019 11:39P Dictated by : SAYRA ZIEGLER MD This examination was interpreted and the report reviewed and electronically signed by: SAYRA ZIEGLER MD on Jul 29 2019 11:41PM EST Normal [facility] XR PELVIS 1V APon 07-30-2019 XR PELVIS 1V AP * * *Final Report* * * DATE OF EXAM: Jul 29 2019 10:21PM [id number] [id number] - XR PELVIS 1V AP / PROCEDURE REASON: Pelvic fx, known or suspected * * * * Physician Interpretation * * * * EXAM: XR PELVIS 1V AP COMPARISON: No relevant prior available PATIENT HISTORY: Pelvic fx, known or suspected TECHNIQUE: AP view of the pelvis was obtained. FINDINGS: The right and left femoral head are normally located. No widening of the pubic symphysis or sacroiliac joints. No fracture detected. IMPRESSION: Negative for fracture or malalignment of the pelvis. Membership Coordinator: [facility] Transcribe Date/Time: Jul 29 2019 10:38P Dictated by : MARISEL MEJÍA MD This examination was interpreted and the report reviewed and electronically signed by: MARISEL MEJÍA MD on Jul 29 2019 10:39PM EST Normal [facility] CT BRAIN WO IVCONon 07-29-[address] BRAIN WO IVCON * * *Final Report* * * DATE OF EXAM: Jul 29 2019 7:39PM [facility] 0504 - CT BRAIN WO IVCON / PROCEDURE REASON: Head trauma, minor, pt on anticoagulation * * * * Physician Interpretation * * * * EXAMINATION: CT BRAIN WO IVCON CLINICAL HISTORY: Fall. The patient struck head. TECHNIQUE: Serial axial images without IV contrast were obtained from the vertex to the foramen magnum. MQ: CTBWO_3 CT Dose-Length Product (DLP): 882.80 mGy*cm CT Dose Reduction Employed: No dose reduction techniques were required COMPARISON: None RESULT: Post-operative change: None. Acute change: No evidence of an acute infarct or other acute parenchymal process. Hemorrhage: There is acute subdural hematoma associated with the interhemispheric falx estimated to measure approximately 3 mm in maximal thickness. No significant associated mass effect. Mass Lesion / Mass Effect: There is no evidence of an intracranial mass or extraaxial fluid collection. No significant mass effect. Chronic change: There are moderate-sized chronic infarcts involving the paramedian right frontal lobe as well as the left occipital lobe. Parenchyma: There is no significant volume loss. The brain parenchyma is otherwise within normal limits for age. Ventricles: The ventricles are within normal limits of size and configuration for age. Paranasal sinuses and skull base: The visualized paranasal sinuses are grossly clear. The skull base and imaged soft tissues are unremarkable. IMPRESSION: Acute interhemispheric subdural hematoma, estimated to measure approximately 3 mm in maximal thickness. 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 Findings were discussed with Dr. Riley in the emergency Department at the time this dictation 07/29/2019 Membership Coordinator: [facility] Transcribe Date/Time: Jul 29 2019 8:08P Dictated by : GORDON CORNELIUS MD This examination was interpreted and the report reviewed and electronically signed by: GORDON CORNELIUS MD on Jul 29 2019 8:16PM EST Normal [facility] CT CERVICAL SPINE WO IVCONon 07-29-2019 CT CERVICAL SPINE WO IVCON * * *Final Report* * * DATE OF EXAM: Jul 29 2019 7:39PM [facility] 0505 - CT CERVICAL SPINE WO IVCON / PROCEDURE REASON: C-spine trauma, NEXUS/CCR positive * * * * Physician Interpretation * * * * EXAMINATION: CT CERVICAL SPINE WO IVCON CLINICAL HISTORY: Fall. Patient struck head. TECHNIQUE: CT of the cervical spine without IV contrast. Spiral, high resolution axial images were obtained from the skull base to the cervicothoracic junction with sagittal and coronal planar reconstructions. MQ: CTCSPWO_5 CT Dose-Length Product (DLP): 496 mGy*cm CT Dose Reduction Employed: No dose reduction techniques required COMPARISON: None. RESULT: Counting reference: Craniocervical junction. Anatomic Variants: None. Alignment: Minimal anterolisthesis at C3-C4 and C4-C5. Craniocervical junction: Craniocervical junction is normal. Osseous structures/fracture: No evidence of a lytic or blastic process in the visualized spine. No evidence of acute or chronic fracture. Cervical soft tissues: The paraspinal soft tissues are within normal limits. Degenerative changes: No significant degenerative changes. IMPRESSION: No evidence of acute cervical spine fracture. Anatomic Variant: None. Assume 7 cervical vertebrae with counting from the craniocervical junction. Membership Coordinator: [facility] Transcribe Date/Time: Jul 29 2019 8:17P Dictated by : GORDON CORNELIUS MD This examination was interpreted and the report reviewed and electronically signed by: GORDON CORNELIUS MD on Jul 29 2019 8:23PM EST Normal [facility] CT FACIAL BONE/SOLO WO IVCON on 07-29-2019 CT FACIAL BONE/SOLO WO IVCON * * *Final Report* * * DATE OF EXAM: Jul 29 2019 8:07PM [facility] 0507 - CT FACIAL BONE/SOLO WO IVCON / PROCEDURE REASON: Facial trauma, fx suspected * * * * Physician Interpretation * * * * EXAMINATION: CT FACIAL BONE/SOLO WO IVCON CLINICAL HISTORY: Trauma. The patient fell and struck head. Technique: Spiral high resolution axial unenhanced images were obtained through the facial bones with sagittal and coronal planar reconstructions. MQ: CTMFWO_1 Dose-Length Product (DLP): 442.62 mGy*cm. CT Dose Reduction Employed: No dose reduction techniques were required COMPARISON: None. RESULT: Soft Tissues: No significant superficial soft tissue swelling. Facial bones: No evidence of an acute fracture in the visualized facial bones. Orbits: No evidence of an acute fracture. The globes are intact. The soft tissue planes of the orbits are maintained. Paranasal Sinuses: The paranasal sinuses are clear. Foreign Bodies: No evidence of radiopaque foreign bodies. Other: No evidence of a remote fracture. No lytic or blastic process seen in the facial bones. IMPRESSION: No evidence of acute facial bone fracture. Membership Coordinator: FRANCIE Transcribe Date/Time: Jul 29 2019 8:25P Dictated by : GORDON CORNELIUS MD This examination was interpreted and the report reviewed and electronically signed by: GORDON CORNELIUS MD on Jul 29 2019 8:28PM EST Normal [facility] XR HAND 3V PA/LAT/OBL LTon 0 07-29-2019 XR HAND 3V PA/LAT/OBL LT * * *Final Report* * * DATE OF EXAM: Jul 29 2019 7:52PM LDX 5345 - XR HAND 3V PA/LAT/OBL LT / PROCEDURE REASON: Hand trauma, metacarpal fx or dislocation suspected * * * * Physician Interpretation * * * * EXAM TITLE: XR HAND 3V PA/LAT/OBL LT DATE: 07/29/2019 INDICATION: Left hand pain secondary to a fall COMPARISON: None. FINDINGS: There is complete dislocation of the first MCP joint. No definite additional fracture or dislocation is identified but positioning is otherwise suboptimal. Soft tissues are within normal limits. IMPRESSION: Complete dislocation of the left first MCP joint. Membership Coordinator: PSCB Transcribe Date/Time: Jul 29 2019 8:20P Dictated by : KASSANDRA MCCOY MD This examination was interpreted and the report reviewed and electronically signed by: KASSANDRA MCCOY MD on Jul 29 2019 8:21PM EST Normal [facility] XR RIB/CHST 3V AP RIB/OBL/CH ST Randy 07-29-2019 XR RIB/CHST 3V AP RIB/OBL/CHST R * * *Final Report* * * DATE OF EXAM: Jul 29 2019 8:12PM LDX 5244 - XR RIB/CHST 3V AP RIB/OBL/CHST R / PROCEDURE REASON: Chest trauma, blunt, rib fx suspected * * * * Physician Interpretation * * * * EXAM TITLE: XR RIB/CHST 3V AP RIB/OBL/CHST R DATE: 07/29/2019 INDICATION: Right chest pain secondary to injury COMPARISON: None. FINDINGS: There is no apparent rib fracture or dislocation. There is no visible pneumothorax. Soft tissues are otherwise normal. IMPRESSION: Within normal limits. Membership Coordinator: PSCB Transcribe Date/Time: Jul 29 2019 8:21P Dictated by : KASSANDRA MCCOY MD This examination was interpreted and the report reviewed and electronically signed by: KASSANDRA MCCOY MD on Jul 29 2019 8:22PM EST Normal [facility] Vital Signs Date Time Vital Sign Value Performing Clinician Kenani damien 05-02-2025 09:45-0400 Body height 167.[address] Ajay Mcguire DO Work Phone: [facility] 05-02-2025 09:45-0400 Body mass index (BMI) [Ratio] 16.5 kg/m2 Dr. Ajay Mcguire DO Work Phone: [facility] 05-02-2025 09:45-0400 Body temperature 98.5 [degF] Dr. Ajay Mcguire DO Work Phone: [facility] 05-02-2025 09:45-0400 Body weight 46.[address] Ajay Mcguire DO Work Phone: [facility] 05-02-2025 09:45-0400 Diastolic blood pressure 80 mm[Hg] Dr. Ajay Mcguire DO Work Phone: [facility] 05-02-2025 09:45-0400 Heart rate 91 /min Dr. Ajay Mcguire DO Work Phone: [facility] 05-02-2025 09:45-0400 SaO2% (BldA) [Mass fraction] 98 % Dr. Ajay Mcguire DO Work Phone: [facility] 05-02-2025 09:45-0400 Systolic blood pressure 120 mm[Hg] Dr. Ajay Mcguire DO Work Phone: [facility] 04-16-2023 15:03-0400 Body height 166.[address] Ajay Mcguire Work Phone: [facility] 04-16-2023 15:03-0400 Body mass index (BMI) [Ratio] 16 kg/m2 Dr. Ajay Mcguire Work Phone: [facility] 04-16-2023 15:03-0400 Body weight 44.[address] Ajay Mcguire Work Phone: [facility] 04-16-2023 15:03-0400 Diastolic blood pressure 62 mm[Hg] Dr. Ajay Mcguire Work Phone: [facility] 04-16-2023 15:03-0400 Systolic blood pressure 98 mm[Hg] Dr. Ajay Mcguire Work Phone: [facility] 01-20-2022 13:50-0500 Body temperature 98.5 [degF] [facility] Work Phone: 01-20-2022 13:50-0500 Diastolic blood pressure 62 mm[Hg] [facility] Work Phone: 01-20-2022 13:50-0500 Heart rate 68 /min [facility] Work Phone: 01-20-2022 13:50-0500 Respiratory rate 16 /min [facility] Work Phone: 01-20-2022 13:50-0500 SaO2% (BldA) [Mass fraction] 98 % [facility] Work Phone: 01-20-2022 13:50-0500 Systolic blood pressure 85 mm[Hg] [facility] Work Phone: 01-20-2022 09:41-0500 Body height 167.64 cm [facility] Work Phone: 01-20-2022 09:41-0500 Body mass index (BMI) [Ratio] 15.6 kg/m2 [facility] Work Phone: 01-20-2022 09:41-0500 Body weight 44 kg [facility] Work Phone: Encounters Encounter Date Encounter Type Care Provider Facility Start: 05-14-2025 ambulatory [facility] Facility :[facility] Start: 05-02-2025 End: 05-02-2025 Patient encounter procedure Yazmin Lara ASSISTANT DIRECTOR OF FINANCIAL AIDRigobertoC [facility] Work Phone: Start: 05-02-2025 End: 05-02-[address] Ajay Mcguire DO Work Phone: [facility] Work Phone: Start: 05-01-2025 End: 05-01-[address] Ajay Mcguire DO Work Phone: [facility] Work Phone: Start: 05-01-2025 End: 05-01-[address] Galdis Ayala MD -Labor[facility] [place] Work Phone: Start: 05-01-2025 End: 05-01-2025 ambulatory [facility] Facility:[facility] Start: 04-10-2025 ambulatory MD JOHN PETTY Fac ility:[facility] [place] Start: 11-27-2024 End: 11-27-2024 ambulatory JOSE A SUTTON Not Available Start: 11-17-2024 End: 11-17-2024 ambulatory Jose A Sutton Facility:[facility] Start: 08-08-2024 End: 08-12-2024 ambulatory NARDA HERNANDEZ DO Facility:[facility] Start: 08-08-2024 End: 08-12-2024 Outreach Lab NARDA HERNANDEZ DO [facility] Start: 05-28-2024 End: 05-28-2024 ambulatory JOSE A SUTTON Not Available Start: 02-27-2024 End: 02-27-2024 ambulatory [facility] Work Phone: Start: 02-27-2024 End: 02-27-2024 Patient encounter procedure [facility], [facility] Work Phone: Start: 11-12-2023 End: 11-12-2023 ambulatory [facility] Work Phone: Start: 11-12-2023 End: 11-12-2023 Patient encounter procedure [facility] Work Phone: Start: 10-16-2023 End: 10-20-[address] BOSTON UMAÑA DO [facility] Start: 05-09-2023 End: 05-09-[address] Ajay Mcguire Work Phone: [facility] Work Phone: Start: 05-09-2023 End: 05-09-[address] Ajay Mcguire Work Phone: [facility]Laboratory Start: 04-25-2023 End: 04-25-[address] Ajay Mcguire Work Phone: [facility] Start: 04-16-2023 Non-patient / Non-visit Dr. Ajay Mcguire Work Phone: [facility] Start: 04-16-2023 End: 04-16-[address] [facility] Start: 04-09-2023 End: 04-09-[address] Ajay Mcguire Work Phone: [facility] Work Phone: Start: 04-09-2023 End: 04-09-[address] Ajay Mcguire Work Phone: [facility]-Physical Therapy Work Phone: Start: 04-09-[address] Todd Mcguire Work Phone: [facility]Physical Therapy Start: 02-02-2023 End: 02-02-2023 ambulatory [facility] Work Phone: Start: 02-02-2023 End: 02-02-2023 Patient encounter procedure [facility]-Outpatient Breast Imaging Start: 10-30-2022 End: 10-30-2022 ambulatory [facility] Work Phone: Start: 10-30-2022 End: 10-30-2022 Patient encounter procedure [facility] Start: 04-28-2022 End: 04-28-2022 Patient encounter procedure [facility] Start: 01-20-2022 End: 01-20-2022 Admission to same day surgery center [facility] Day Care Procedures Date Procedure Procedure Detail Performing Clinician Start: 02-27-2024 US urinary tract Start: 04-16-2023 X-ray of lumbosacral spine Dr. Ajay Mcguire Work Phone: Start: 02-02-2023 Screening mammography Start: 01-20-2022 O.R. Fluoro for C-Arm Start: 01-20-2022 Pelvis X-ray Start: 07-30-2019 Antibody screen Comment on above: Performed By: #### T &S ####[place] [address] BOSTON Boyle Comment on above: 12/[address] Dany UMAÑA DO Comment on above: right Plan of Treatment Date Care Activity Detail Author Start: 01-20-2022 Anes integ extremiti es ant trunk & perineum nos ANESTH SKIN EXT/PER/ATRUNK [facility] Work Phone: Start: 01-20-2022 Inc impltj neurostim ulator eltrd sacral nerve OPN IMPLTJ BECKY SACRAL NERVE [facility] Work Phone: Start: 01-20-2022 Insertion/rplcmt peripheral/gastric npgr INSRT/REDO PN/GASTR STIMUL [facility] Work Phone: Patient referral [facility] Work Phone: Immunizations Immunization Date Immunization Notes Care Provider Fa makaylaty 10-11-2021 Covid (Moderna); Translations: [Moderna COVID-19 Vaccine] [facility] 03-01-2021 COVID-19, mRNA, LNP- S, PF, 100 mcg or 50 mcg dose; Translations: [Moderna COVID-19 Vaccine] DR BOSTON UMAÑA DO [facility] 02-01-2021 COVID-19, mRNA, LNP- S, PF, 100 mcg or 50 mcg dose; Translations: [Moderna COVID-19 Vaccine] DR BOSTON UMAÑA DO [facility] 07-29-2019 tetanus toxoid, redu claire diphtheria toxoid, and acellular pertussis vaccine, adsorbed DR BOSTON UMAÑA DO [facility] 11-04-2010 influenza, seasonal, injectable, preservative free DR BOSTON UMAÑA DO [facility] Comment on above: Reason for Medicatio n: Other (see order comments) 11-04-2010 pneumococcal polysaccharide vaccine, [address] BOSTON UMAÑA DO [facility] Comment on above: Reason for Medicatio n: Other (see order comments) Payers Date Payer Category Payer Self-pay [id number] 2022 Medicare [id number] 1965 Unknown [id number] 1965 Unknown [id number] 2.16.84 [id number] 1965 Unknown [id number] 2.16.8 [id number] 1965 Unknown [id number] [id number] Medicare [id number] Private Health Insurance [id number] Unknown [id number] Unknown [id number] Unknown [id number] 2.16.8 [id number] Unknown [id number] 2.16.8 [id number] Unknown [id number] 2.16.8 [id number] Unknown [id number] 2.16.8 [id number] Social History Date Type Detail Facility [facility] Work Phone: Start: 01-13-2022 End: 04-25-2023 Tobacco smoking status NHIS Unknown if ever smoked [facility] Start: 10-19-2020 Non-smoker [facility] Start: 1965 Sex Assigned At Female [facility] Start: 02-27-2020 Tobacco smoking status Never s moked tobacco (finding) [facility] Sex Assigned At Sex [facility] Start: 04-25-2023 Tobacco smoking stat us DCIS Ex-smoker (finding) [facility] Medical Equipment Procedure Code Equipment Code Equipment Origin al Text Equipment Identifier Dates GENERATOR,BLADDE R STIM FDA Start: 10-27-2020 LEAD KIT 28CM BLADDER STIM FDA Start: 10-27-2020 GENERATOR,BLADDE R STIM FDA Start: 01-20-2022 LEAD KIT 28CM BLADDER STIM FDA Start: 01-20-2022 GENERATOR,BLADDE R STIM FDA Start: 10-27-2020 LEAD KIT 28CM BLADDER STIM FDA Start: 10-27-2020 GENERATOR,BLADDE R STIM FDA Start: 01-20-2022 LEAD KIT 28CM BLADDER STIM FDA Start: 01-20-2022 GENERATOR,BLADDE R STIM FDA Start: 10-27-2020 LEAD KIT 28CM BLADDER STIM FDA Start: 10-27-2020 GENERATOR,BLADDE R STIM FDA Start: 01-20-2022 LEAD KIT 28CM BLADDER STIM FDA Start: 01-20-2022 GENERATOR,BLADDE R STIM FDA Start: 10-27-2020 LEAD KIT 28CM BLADDER STIM FDA Start: 10-27-2020 GENERATOR,BLADDE R STIM FDA Start: 01-20-2022 LEAD KIT 28CM BLADDER STIM FDA Start: 01-20-2022 GENERATOR,BLADDE R STIM FDA Start: 10-27-2020 LEAD KIT 28CM BLADDER STIM FDA Start: 10-27-2020 GENERATOR,BLADDE R STIM FDA Start: 01-20-2022 LEAD KIT 28CM BLADDER STIM FDA Start: 01-20-2022 GENERATOR,BLADDE R STIM FDA Start: 10-27-2020 LEAD KIT 28CM BLADDER STIM FDA Start: 10-27-2020 GENERATOR,BLADDE R STIM FDA Start: 01-20-2022 LEAD KIT 28CM BLADDER STIM FDA Start: 01-20-2022 GENERATOR,BLADDE R STIM FDA Start: 10-27-2020 LEAD KIT 28CM BLADDER STIM FDA Start: 10-27-2020 GENERATOR,BLADDE R STIM FDA Start: 01-20-2022 LEAD KIT 28CM BLADDER STIM FDA Start: 01-20-2022 GENERATOR,BLADDE R STIM FDA Start: 10-27-2020 LEAD KIT 28CM BLADDER STIM FDA Start: 10-27-2020 GENERATOR,BLADDE R STIM FDA Start: 01-20-2022 LEAD KIT 28CM BLADDER STIM FDA Start: 01-20-2022 GENERATOR,BLADDE R STIM FDA Start: 10-27-2020 LEAD KIT 28CM BLADDER STIM FDA Start: 10-27-2020 GENERATOR,BLADDE R STIM FDA Start: 01-20-2022 LEAD KIT 28CM BLADDER STIM FDA Start: 01-20-2022 Goals Date Patient Goal Desired Activity /State Mental Status Date Assessment Result Facility 01-20-2022 Cognitive function Voice/Name [facility] Work Phone: Clinical Notes 07-25-2023 to 05-02-2025 Note Date & Type Note Facility 05-02-2025 Evaluation note Diagnosis Onset Date Resolution Multiple sclerosis exacerbation acute May 02, 2025 9 :29am [facility] Work Phone: 1(251) 351-334509-15-2024 Note. MICRO - Microbiology PROCEDURE: Urine Culture [*1] SOURCE: Urine, Clean Catch BODY SITE: COLLECTED DATE/TIME: 08/08/2024 16:10 EDT RECEIVED DATE/TIME: 08/08/2024 21:20 EDT START DATE/TIME: 08/08/2024 21:20 EDT FREE TEXT SOURCE: FINAL REPORTS Final Report [] Verified Date/Time/Personnel: 08/10/2024 08:59 EDT >100,000 cfu/ml Escherichia coli PRELIMINARY REPORTS Preliminary Report [] Verified Date/Time/Personnel: 08/09/2024 11:47 EDT >100,000 cfu/ml Escherichia coli REBECCA to follow SUSCEPTIBILITY RESULTS Escherichia coli Antibiotic REBECCA Dilut REBECCA Inter Ampicillin <=8 Susceptible Ampicillin/ <=4/2 Susceptible Sulbactam Aztreonam <=4 Susceptible Cefazolin <=2 Susceptible Ceftazidime/ <=4 Susceptible Avibactam Ceftolozane/ <=2 Susceptible Tazobactam Ciprofloxacin <=0.25 Susceptible Ertapenem <=0.5 Susceptible Gentamicin <=2 Susceptible ID Panel Not Not Applicable Applicable Imipenem <=1 Susceptible Levofloxacin <=0.5 Susceptible Meropenem <=1 Susceptible Minocycline <=4 Susceptible Nitrofurantoin <=32 Susceptible Trimethoprim/ <=0.5/9.5 Susceptible Sulfa Performing Locations *1: This test was performed at: [facility], [address] [place] [address], [id number] , [facility]09-13-2024 Evaluation + Plan note Future Scheduled Tests Laboratory* Albumin/Creatinine Ratio, Random Urine 08/08/24 [facility] 11-22-2023 SARS-CoV-2 (COVID-19) RNA MILO+probe Ql (Nph) Negative *NA* (10/17/23 10:05 AM)AO Auto Urine [id number] Discharge summary Author Lizeth Munoz [facility] July 25, 2023 1:24pm Note Date/Time July 25, 2023 1: 24pm [facility] Physical Therapy [facility] [place] [address] / REHABILITATION SERVICES DISCHARGE SUMMARY MR#: [id number] Acct: [id number] Name: JAMEL PARKS Rep #: [id number] 3 : 1965 58 From: Lizeth Munoz PT, Cert. MDT Referring Dr.: Dr. Jose A Sutton MD Status: [facility] Insurance: [employer] SELF PAY INSURANCE Patient Information Patient Information: AJMEL PARKS was seen in my office for initial evaluation on 02/12/23. The following Plan of Care was established for this patient: POC Established Initial Frequency: 2-3x /Week Initial Duration: 4-6 Weeks Anticipated Interventions Patient/Client Instruction: Educate patient on: Condition, Plan of Care and Risk Factors For the Purpose of:: To improve self management Therapeutic Exercise to Include: Strength training, Balance training, Flexibiltytraining, Gait and locomotor training, Neuromotor development and Dynamic LumbarStabilization For the Purpose of:: To improve muscle performance and motor function, To increase tolerance to activity/condition/position, To improve ability of physical actions for home/community/work/leisure and To improve gait and locomotor functions Last Seen Last Seen: This patient was last seen in our office 04/09/23. Pertinent comments regardingtheir Physical therapy will appear below: This patient has not returned to Physical Therapy and is appropriate to return to MD for further follow-up as needed. At this point I will be discontinuing this patient from physical therapy. I would be happy to see this patient again in the future if found appropriate by the physician. Thank you! Lizeth Munoz, PT, Cert MDT Balance/Gait/Functional tests Balance/Special Test Scores Lower Extremity Functional Score: 40 TUG Test Time Seconds: 29.97 Tug Test: >30sec.=impaired mobility 30 Second Chair Rise Test Seconds: 6 <Electronically signed by Lizeth Munoz PT, Cert. MDT> 07/25/23 1324 CC: Dr. Jose A Sutton MD; Dr. Ajay Mcguire, DO ~ NEELAM Signed [facility] Work Phone: Evaluation + Plan note Future Appointments Appointment Date:10/24/2023 04:30:00 PM Scheduled Provider:AJAY MCGUIRE DO Location:[facility] Appointment Type:PC OV Appointment Date:03/17/2024 03:00:00 PM Scheduled Provider:AJAY MCGUIRE DO Location:[facility] Appointment Type:PC OV [facility] Evaluation noteNo assessment information available [facility] Work Phone: Evaluation note* Diagnosis Onset Date Resolution Status Back pain acute Multiple sclerosis acute Scoliosis of lumbar spine [place] Segmental and somatic dysfunction of lumbar region acute Segmental and somatic dysfunction of pelvic region acute Back pain acute Multiple sclerosis acute Scoliosis of lumbar spine [place] Segmental and somatic dysfunction of lumbar region acute Segmental and somatic dysfunction of pelvic region acute [facility] Work Phone: Hospital course Narrative No data available for this section [facility] Discharge instructions No data available for this section [facility] Progress note No data available for this section [facility] Reason for referral (narrative)No [facility] Work Phone: Summary Purpose Family History No Family History Records FoundNo Family History Records Found No data available for this section No data available for this section No Family History Records FoundNo Family History Records FoundNo Family History Records Found Advance Directives No Advanced Directives Records Found Advance Directive Response Recorded Date/ Time Living Will No January 13 11:10am Power of Fixed Route Operator No February 18th, 2022 11:10am Advance Directive Response Recorded Date/ Time Living Will No January 13 022 10:10am Power of Fixed Route Operator No January 13, 2022 10:10am Hospital Course Note HNO ID: [id number] Author: Sung Medrano DO Service: Trauma Author Type: Resident Type: Discharge Summary Filed: 08/02/2019 5:33 PM Note Text: DISCHARGE SUMMARY PATIENT NAME: Jamel Parks Code Status: Not on file Highest Readmission Risk Score: 12 The 30 day readmissions risk score is derived from an internally validated risk model which evaluates patient level characteristics, utilization history, medication orders and lab results up until the day of discharge. Patients with a score of 40 or above are considered highest risk for readmission. Specific patient level drivers will be listed at the bottom of the summary. Admission Information Admission Information ADMIT DATE: 07/29/2019 DISCHARGE DATE: 08/02/2019 MY DOCTORS AND MEDICAL TEAM: [facility] Doctor: Ajay Tracy Primary Care Provider: Ajay Mcguire DO My Medical Team Members: Treatment Team: Attending Provider: Ajay Tracy Consulting: Zay Mcfarlane MY CONDITION AT DISCHARGE: Stable (more content not included)... Chief Complaint and Reason for Visit Chief Complaint INTERSTIM 1 AND 2 Chief Complaint SCREENING Chief Complaint SCREENING MS; GAIT AND BALANCE/RX HERE Establish care XRAY BACK PAIN Reason for Visit Back pain Multiple sclerosis Scoliosis of lumbar spine Segmental and somatic dysfunction of lumbar region Segmental and somatic dysfunction of pelvic region Back pain Multiple sclerosis Scoliosis of lumbar spine Segmental and somatic dysfunction of lumbar region Segmental and somatic dysfunction of pelvic region Chief Complaint MS; GAIT AND BALANCE /RX HERE Establish care XRAY BACK PAIN Reason for Visit Back pain Multiple sclerosis Scoliosis of lumbar spine Segmental and somatic dysfunction of lumbar region Segmental and somatic dysfunction of pelvic region Back pain Multiple sclerosis Scoliosis of lumbar spine Segmental and somatic dysfunction of lumbar region Segmental and somatic dysfunction of pelvic region Chief Complaint URINARY TRACT INFECT ION Chief Complaint Admit Date MS FLARE/NEEDS STEROID May 02, 2025 9: 29am Reason for Visit Admit Date Multiple sclerosis exacerbation April 9:29am Additional Source Comments INFORMATION SOURCE (unrecogn ized section and content) DATE CREATED AUTHOR 08/31/2019 [facility] DATE CREATED AUTHOR AUTHOR'S ORGANIZ ATION 09/02/2019 [facility] DATE CREATED AUTHOR AUTHOR'S ORGANIZ ATION 12/04/2024 [facility] DATE CREATED AUTHOR AUTHOR'S ORGANIZ ATION 04/11/2025 [facility] DATE CREATED AUTHOR AUTHOR'S ORGANIZ ATION 05/08/2025 [facility] Goals (unrecognized section and content) Goals may be documented in a n alternate sectionGoals may be documented in an alternate sectionGoals may be documented in an alternate section No data available for this section No data available for this section Care Teams (unrecognized sec tion and content) Team Status: Active Member Role Status Dates Dr. Ajay Mcguire DO Family Provider Active Dr. Ajay Mcguire DO Primary Care Provider Active Team Status: Inactive Member Role Status Dates Dr. Ajay Mcguire DO Primary Care Provider Active Dr. Jose A Sutton MD Attending Provider Active Team Status: Inactive Member Role Status Dates Dr. Ajay Mcguire DO Primary Care Provider Active Ginger Rincon ASSISTANT DIRECTOR OF FINANCIAL AID, ASSISTANT DIRECTOR OF FINANCIAL AID-C Attending Provider, Referr ing Provider Active Team Status: Inactive Member Role Status Dates Dr. Ajay Mcguire DO Primary Care Provider, Referri ng Provider Active Dr. Radha Dukes DC Attending Provider Active Team Status: Inactive Member Role Status Dates Dr. Ajay Mcguire DO Primary Care Provider Active Dr. Radha Dukes DC Active Dr. Ricco Giordano MD Attending Provider Active Team Status: Active Member Role Status Dates Dr. Ajay Mcguire DO Primary Care Provider, Referri ng Provider Active Dr. Radha Dukes DC Attending Provider Active Team Status: Active Member Role Status Dates Dr. Ajay Mcguire DO Primary Care Provider Active Dr. Jose A Sutton MD Attending Provider, Referring Provider Active Team Status: Inactive Member Role Status Dates Dr. Ajay Mcguire DO Primary Care Provider Active Dr. Jose A Sutton MD Attending Provider, Referring Provider Active Team Status: Inactive Member Role Status Dates Dr. Ajay Mcguire DO Primary Care Provider Active Dr. Gladis Ayala MD Attending Provider, Referring P simon Active Team Status: Active Member Role Status Dates Dr. Ajay Mcguire DO Primary Care Provider Active Start: May 01, 2025 Dr. Gladis Ayala MD Attending Provider Active Start: May 01, 2025 Dr. Gladis Ayala MD Referring Provider Active Start: May 01, 2025 Team Status: Inactive Member Role Status Dates Dr. Ajay Mcguire DO Primary Care Provider Active Start: May 02, 2025 End: May 02, 2025 Dr. Ajay Mcguire DO Referring Provider Active Start: May 02, 2025 End: May 02, 2025 [email or web address] Pablo Attending Provider Active Start: May 02, 2025 End: May 02, 2025 Team Status: Active Member Role Status Dates Dr. Ajay Mcguire DO Primary Care Provider Active Team Status: Inactive Member Role Status Dates Dr. Ajay Mcguire DO Primary Care Provider Active Start: May 01, 2025 End: May 01, 2025 Dr. Gladis Ayala MD Attending Provider Active Start: May 01, 2025 End: May 01, 2025 Dr. Gladis Ayala MD Referring Provider Active Start: May 01, 2025 End: May 01, 2025 FOR RECORDS PERTAINING TO PATIENTS WHO ARE OR HAVE BEEN ENROLLED IN A CHEMICAL DEPENDENCY/SUBSTANCEABUSE PROGRAM, SOME INFORMATION MAY BE OMITTED. This clinical summary was aggregated from multiple sources. Caution should be exercised in using it in the provision of clinical care. This summary normalizes information from multiple sources, and as a consequence, information in this document may materially change the coding, format and clinical context of patient data. In addition, data may be omitted in some cases. CLINICAL DECISIONS SHOULD BE BASED ON THE PRIMARY CLINICAL RECORDS. [employer] [facility]. provides no warranty or guarantee of the accuracy or completeness of information in this document.
--- NOTE | 2025-05-14 11:20 | PCM.PRE.AN2 ---
ASA Classification* ASA Classification ASA Classification: 3 (Multiple sclerosis, hx of stroke ) Assessment & Plan Anesthesia* Anesthesia Assessment Anesthesia Assessment: Discussed sedation and/or anesthesia options, risks, benefits, and alternatives with patient/parents/legal guardian/POA. Questions invited. The patient/parents/legal guardian/POA seems to understand and agrees to proceed with anesthesia plan. Reviewed the physical assessment, medical history, allergy history and patient home medications list prior to surgery/procedure/anesthetic and documented any changes. Performed airway and anesthesia risk assessments. Anesthesia Type Anesthesia Type: MAC History Source History Obtained from:: Patient and Chart Anesthesia Focused Assessment* Temperature: 97.1 F Pulse Rate: 66 Blood Pressure: 106/76 Respiratory Rate: 16 Pulse Ox: 100 Oxygen Delivery Method: Room Air Airway Assessment Mouth opens: >3 cm Mallampati Score: II Teeth Condition: Dentures, Lower and Upper Neck Range of motion (ROM): Full ROM Labs Anesthesia Preop lab: CBC WBC 7.7 K/mm3 (4.4-11.0) 05/01/25 15:43 05/01/25 RBC 4.22 M/mm3 (4.2-5.4) 05/01/25 15:43 05/01/25 Hgb 13.6 g/dL (12.0-15.0) 05/01/25 15:43 05/01/25 Hct 39.7 % (37-47) 05/01/25 15:43 05/01/25 Plt Count 247 K/mm3 (150-450) 05/01/25 15:43 05/01/25 CHEMISTRY Potassium 3.9 mmol/L (3.3-5.1) 05/01/25 15:43 05/01/25 Sodium 143 mmol/L (133-145) 05/01/25 15:43 05/01/25 BUN 18 mg/dL (4-19) 05/01/25 15:43 05/01/25 Creatinine 0.92 mg/dL (0.70-1.20) 05/01/25 15:43 05/01/25 Glucose 118 mg/dL (70-99) H 05/01/25 15:43 05/01/25 COAG Pre-Assessment Diagnosis/Proposed Procedure Planned Operative Procedure(s): REPLACE INTERSTIM BATTERY Anesthesia History 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 When Was Last Pacemaker Check QUESTION #4 FULL TEXT: You/Your Family Experience fever (hyperthermia) with Anesthesia Last Oral Intake Last Oral intake: Last Oral Intake NPO since 09:00 05/14/25 11:04 Meds taken in AM with sips of No 05/14/25 11:04 water? Meds patient instructed to take am of surgery PONV PONV - smelter operator: PONV - smelter operator Female Yes 05/08/25 15:17 HX of Motion Sickness No 05/08/25 15:17 HX of N/V After Surgery No 05/08/25 15:17 Non-Smoker Yes 05/08/25 15:17 Duration of Surgery greater No 05/08/25 15:17 than 60 minutes Number of Risk Factors 2 05/08/25 15:17 PONV Score Moderate Risk 05/08/25 15:17 Height & Weight Height & Weight: Anesthesia: Height & Weight Height 5 ft 6 in 05/14/25 11:04 Weight: 47 kg 05/14/25 11:04 Body Mass Index (BMI) 16.7 05/14/25 11:04 Respiratory Assessment Respiratory Assessment - smelter operator: Respiratory Tract Infection Hx - smelter operator Hx Respiratory Tract Infection No 05/08/25 15:17 STOP Sleep Apnea STOP Sleep Apnea - smelter operator: STOP Sleep Apnea - smelter operator Hx Hypertension No 05/08/25 15:17 Hx Sleep Apnea No 05/08/25 15:17 CPAP BIPAP Do you snore loudly (louder No 05/08/25 15:17 than talking or can be heard Do you often feel tired/ No 05/08/25 15:17 fatigued/ sleepy during daytime? Has anyone observed you stop No 05/08/25 15:17 breathing during sleep? STOP Results Negative 05/08/25 15:17 QUESTION #5 FULL TEXT : Do you snore loudly (louder than talking or can be heard through closed doors)? 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 Specify any problems Hx of Preganancy in last 3 No 05/08/25 15:17 Months Nurse Filling Out Transfusion DSCHRIBER 05/08/25 15:17 & Questions: Date: 05/08/25 05/08/25 15:17 Time: 15:19 05/08/25 15:17 Patient unable to answer at this time (ie. confused, unrespo /Reproduction History /Reproductive History - smelter operator: /Reproductive Hx- smelter operator Hx Now No 05/08/25 15:17 Gestational Age (in weeks): EDC: Hx Hx Para Hx Section SAB No 05/08/25 15:17 Active Medications Active Medications: Current Medications Generic Name Dose Route Start Last Admin Trade Name Freq PRN Reason Stop Dose Admin Lactated Ringer's 1,000 mls @ 15 mls/hr 05/14/25 11:15 05/14/25 11:12 IV 15 mls/hr .Q48H SIMÓN Administration PFSH Medical History (Updated 05/08/25 @ 15:25 by Radha Meléndez) Post-menopausal Bruising History of steroid therapy Leg cramps Wears dentures Ambulates with cane Former smoker Stroke Multiple sclerosis Home Medications ?Medication ?Instructions ?Recorded ?Last Taken ?Type cholecalciferol (vitamin D3) 25 1,000 unit PO DAILY 08/14/19 Unknown History mcg (1,000 unit) capsule cyanocobalamin (vitamin B-12) 1,000 mcg PO DAILY supplement 09/24/20 Unknown History 1,000 mcg tablet nitrofurantoin 1 cap PO BID 05/08/25 Unknown History monohydrate/macrocrystals 100 mg capsule oxybutynin chloride 15 mg 15 mg PO DAILY 05/08/25 Unknown History tablet,extended release 24 hr Allergy/AdvReac Type Severity Reaction Status Date / Time vibegron (From Gemtesa) Allergy Intermediate Shortness Verified 05/14/25 11:13 of breath latex Allergy Rash Verified 05/14/25 11:13 Penicillins Allergy difficulty Verified 05/14/25 11:13 breathing dalfampridine (From Ampyra) AdvReac stroke Verified 05/14/25 11:13 Surgical History (Updated 05/08/25 @ 15:25 by Radha Meléndez) Hx of tubal ligation History of bladder surgery Social History Smoking Status: Former smoker Review of Systems (Anesthesia) ROS Narrative System reviewed and no additional complaints, except as documented. Physical Exam Const alert, oriented x3 and average body habitus Resp normal respiratory effort, normal air movement and clear to auscultation bilaterally Cardio regular rate, regular rhythm, no murmurs and diaphoretic
[2025-05-14] MEDS: Lidocaine 1% /Epi 1:100 (50ml) 50 ML VIAL (12:06)
--- NOTE | 2025-05-14 12:20 | PCM.POST.ANE ---
Anesthesia: Postop Eval I Current Vital Signs Temperature: 97.5 F Pulse Rate: 66 Blood Pressure: 97/61 Respiratory Rate: 66 Pulse Ox: 100 Oxygen Delivery Method: Room Air Assessment Airway patent: Yes Spontaneous unlabored respirations: Yes Mental status: Awake nausea: No Vomiting: No Anesthesia Complication: No Fluid Hydration Crystalloid volume administer (ml): 500 Total IV fluid infused: 500 Progress Note Anesthesia document: Postop Eval 1 completed: Yes
--- NOTE | 2025-05-14 13:32 | POSTOPAN2_ITS ---
Anesthesia Postop Eval I Sum Postop Eval Completion status Anesthesia document: Postop Eval 1 completed: Yes Anesthesia Postop Eval I Summary Anesthesia Postop Eval I Summary: Anesthesia Postop Eval I: Assessment Summary Airway patent Yes 05/14/25 12:21 HOSPITAL [email or web address] Spontaneous unlabored Yes 05/14/25 12:21 HOSPITAL [email or web address] respirations Mental status Awake 05/14/25 12:21 HOSPITAL [email or web address] nausea No 05/14/25 12:21 HOSPITAL [email or web address] Vomiting No 05/14/25 12:21 HOSPITAL [email or web address] Anesthesia Postop Eval I: Fluid Summary Crystalloid volume administer 500 05/14/25 12:21 HOSPITAL [email or web address].JBOR (ml) Colloids volume administered ( ml) Blood Product volume administered (ml) Total IV fluid infused 500 05/14/25 12:21 HOSPITAL [email or web address].JBOR Anesthesia Postop Eval I: Summary Notes Anesthesia Complication No 05/14/25 12:21 HOSPITAL [email or web address].JBOR Anesthesia Complication Comment: Post-operative progress note Anesthesia: Postop Eval II Evaluation Mental status: Awake Pain Level: 0 nausea: No Vomiting: No Complications Anesthesia Complication: No
--- NOTE | 2025-05-14 13:32 | PCM.POSTANE2 ---
Anesthesia Postop Eval I Sum Postop Eval Completion status Anesthesia document: Postop Eval 1 completed: Yes Anesthesia Postop Eval I Summary Anesthesia Postop Eval I Summary: Anesthesia Postop Eval I: Assessment Summary Airway patent Yes 05/14/25 12:21 SORTING AND FOLDING SUPERVISOR.[email or web address] Spontaneous unlabored Yes 05/14/25 12:21 SORTING AND FOLDING SUPERVISOR.JBOR respirations Mental status Awake 05/14/25 12:21 SORTING AND FOLDING SUPERVISOR.JBOR nausea No 05/14/25 12:21 SORTING AND FOLDING SUPERVISOR.JBOR Vomiting No 05/14/25 12:21 SORTING AND FOLDING SUPERVISOR.JBOR Anesthesia Postop Eval I: Fluid Summary Crystalloid volume administer 500 05/14/25 12:21 SORTING AND FOLDING SUPERVISOR.JBOR (ml) Colloids volume administered ( ml) Blood Product volume administered (ml) Total IV fluid infused 500 05/14/25 12:21 SORTING AND FOLDING SUPERVISOR.JBOR Anesthesia Postop Eval I: Summary Notes Anesthesia Complication No 05/14/25 12:21 SORTING AND FOLDING SUPERVISOR.JBOR Anesthesia Complication Comment: Post-operative progress note Anesthesia: Postop Eval II Evaluation Mental status: Awake Pain Level: 0 nausea: No Vomiting: No Complications Anesthesia Complication: No
== END 2025-05-14 13:23 | disposition home or self-care (01) ==
LOC: SDC 10:28 → AC 10:28
PROVIDERS: PCP Preventive Medicine Occupational Medicine; Referring Provider Urology; Visit Provider Urology
PROC: (CPT 63685; principal; 2025-05-14 11:50)
DX: Z45.42 Encounter for adjustment and management of neurostimulator (principal); G35 Multiple sclerosis; N39.41 Urge incontinence; Z86.73 Personal history of transient ischemic attack (TIA), and cerebral infarction without residual deficits; Z87.891 Personal history of nicotine dependence
CPT/HCPCS: 63685

== ENCOUNTER → 2025-06-05 | Outpatient (CLI) | payer MEDICARE, SELFPAY ==
[2025-06-05 18:56] LABS: Vitamin B12 > 4000 pg/mL (180-914)
== END | disposition home or self-care (01) ==
LOC: MTLAB 16:32
PROVIDERS: PCP Preventive Medicine Occupational Medicine; Referring Provider Nurse Practitioner Adult Health; Visit Provider Nurse Practitioner Adult Health
DX: E53.8 Deficiency of other specified B group vitamins (principal)
CPT/HCPCS: 36415; 82607